=== PATIENT | female | born 1945 | race Two or more races ===

== ENCOUNTER → 2024-05-10 07:25 | Outpatient (REF) | payer OTHER, SELFPAY | LOC: DHCBC/DCA 07:25 | PROVIDERS: ATTENDING PHYSICIAN Internal Medicine Cardiovascular Disease; FAMILY PHYSICIAN Family Medicine | DX: I50.30 Unspecified diastolic (congestive) heart failure (principal) | CPT/HCPCS: 78452; 93017; A9500; J2785 ==

== ENCOUNTER → 2024-05-22 13:34 | Outpatient (REF) | payer OTHER, SELFPAY | LOC: HWRCS 13:34 | PROVIDERS: ATTENDING PHYSICIAN Internal Medicine Cardiovascular Disease; FAMILY PHYSICIAN Family Medicine | DX: I50.30 Unspecified diastolic (congestive) heart failure (principal) | CPT/HCPCS: 93306 ==

== ENCOUNTER → 2024-07-17 09:51 | Outpatient (REF) | payer OTHER, SELFPAY | LOC: DHSLP 09:51 | PROVIDERS: ATTENDING PHYSICIAN Internal Medicine; FAMILY PHYSICIAN Family Medicine | DX: G47.19 Other hypersomnia (principal); R06.83 Snoring | CPT/HCPCS: 95800 ==

== ENCOUNTER 2024-07-22 05:57 | Day surgery (SDC) | payer OTHER, SELFPAY ==
[2024-07-03 13:39] VITALS: BMI 31.6
[2024-07-03 14:09] LABS: ALT (SGPT) 23 U/L (0-35); AST (SGOT) 26 U/L (14-36); Albumin 4.2 g/dl (3.5-5.0); Alkaline Phosphatase 87 U/L (38-126); Blood Urea Nitrogen 11 mg/dl (7-17); Calcium 10.1 mg/dl (8.4-10.2); Carbon Dioxide 27 mmol/L (22-30); Chloride 97 mmol/L (98-107); Estimated Creatinine Clearance 74 ml/min; Glucose 135 mg/dl (70-99); Potassium 4.4 mmol/L (3.5-5.1); Sodium 135 mmol/L (135-145); Total Bilirubin 0.7 mg/dl (0.2-1.3); Total Protein 6.7 g/dl (6.3-8.2); eGFR > 60.00
[2024-07-03 14:21] LABS: % Basophils 0.5 % (0-2); % Eosinophils 2.3 % (0-6); % Immature Granulocytes 0.2 % (0-0.5); % Lymphocytes 24.9 % (20.5-51.1); % Monocytes 8.2 % (1.7-9.3); % Neutrophils 63.9 % (42.2-75.2); Absolute Basophils 0.1 10^3/uL (0-0.2); Absolute Eosinophils 0.2 10^3/uL (0-0.7); Absolute Lymphocytes 2.3 10^3/uL (1.2-3.4); Absolute Monocytes 0.8 10^3/uL (0.1-0.6); Absolute Neutrophils 5.8 10^3/uL (1.4-6.5); Hemoglobin 11.9 g/dL (12.0-16.0); Mean Corp Hgb Conc. 33.1 g/dL (33.0-37.0); Mean Corpuscular Hgb 28.2 pg (27.0-31.0); Mean Corpuscular Volume 85.3 fL (81.0-99.0); Mean Platelet Volume 9.2 fL (7.4-10.4); Nucleated Red Blood Cells % 0 %; Platelet Count 309 10^3/uL (130-400); Red Blood Cell Count 4.22 10^6/uL (4.20-5.40); Red Cell Dist. Width 13.8 % (11.5-14.5); White Blood Cell Count 9.1 10^3/uL (4.8-10.8)
[2024-07-22] VITALS (9 sets, daily range): BP systolic 125–157; BP diastolic 55–90; BMI 30.2
[2024-07-22 06:58] LABS: Glucose - Point of Care 130 mg/dl (70-99)
[2024-07-22 07:09] LABS: INR 1.71; PT 19.9 Sec (11.4-14.6)
[2024-07-22 08:57] LABS: ACT-LR - POC 395 Seconds (116-155)
[2024-07-22 09:04] LABS: Glucose - Point of Care 140 mg/dl (70-99)
[2024-07-22 09:50] LABS: ACT-LR - POC 358 Seconds (116-155)
--- NOTE | 2024-07-22 10:36 | ITS.CL.ABL ---
Faculty Research Physician - Ablation
Ablation
Procedure Report:
AFIB ablation:
Ms. Kay is a very pleasant 78 yr old woman with symptomatic persistent AF and atrial flutter and had recurrent atrial fibrillation failed Diltiazem and anticoagulated with Warfarin is recommended AF / Flutter ablation.
Date of the Procedure:
07/22/2024
Indications:
Persistent atrial fibrillation / Atrial Flutter
Pre-Operative Diagnosis:
Persistent atrial fibrillation / Atrial Flutter
Post-Operative Diagnosis:
Persistent atrial fibrillation / Atrial Flutter
Procedure Performed:
Atrial fibrillation ablation with Pulsed-Field approach for pulmonary vein isolation
Posterior wall isolation
Roof dependent flutter ablation
Performing Physician:
Austin Undewrood MD
Assistants:
EP staff
Anesthesia:
See anesthesia records
Detailed Description of the Procedure:
Written informed consent was obtained from the patient after a full explanation of the risks and benefits of the procedure including the risks of sedation and anesthesia.
The patient was brought to the electrophysiology laboratory in stable condition in fasting state. Continuous electrocardiographic and hemodynamic monitoring was initiated.
The initial rhythm was atrial fibrillation.
Device Interrogation:
Patient has Medtronic dual chamber PPM in place. The device was interrogated at the start of the case. The device and the lead was working normally.
The procedure site was meticulously prepared with surgical scrub and allowed to dry with no pooling. Sterile draping was applied to cover the procedure site. The image intensifier was draped with sterile bag and positioned over the patient. After
infusion of local anesthetic, vascular access was obtained under ultrasound guidance and sheaths were placed over guide wire as detailed below.
Sheath and Catheter Placement:
The following catheters / sheaths were placed
Sheaths:
��������� 17Fr steerable sheath (Faradrive�, [employer]) in right femoral upgraded from SL1 sheath
��������� 9Fr in right femoral vein
Catheters:
��������� Carto Pentaray mapping catheter � at locations of RA, LA
��������� Farawave� PFA catheter
��������� ICE catheter -AcuNav - at locations of RA, SVC, and RV.
Intracardiac ECHO:
An 8-Egyptian AcuNav intracardiac ECHO (ICE) probe was advanced through the 9-Egyptian sheath in the right femoral vein into the right atrium under fluoroscopic and ICE ultrasound image guidance and a baseline ECHO study was performed. The left atrial
size was dilated. There was mild tricuspid regurgitation. The aortic valve was grossly normal. There was normal left ventricular systolic functions. There is trace pericardial effusion. All the four veins were identified and has flow identified.
During the procedure, ICE was used for monitoring of complications, guidance of trans-septal puncture, monitor the catheter position and tracking ablation lesions. No change in the pericardial space noted throughout the procedure.
Trans-septal Puncture:
Heparin was initiated and infused to maintain appropriate ACT. A pigtail guidewire was advanced through the 10-Egyptian sheath in the right femoral vein into the superior vena cava under fluoroscopic and ICE guidance. The 9-Egyptian sheath was exchanged
for a Faradrive sheath which was advanced into the superior vena cava. A transseptal RF pigtail via Faradrive connect system was utilized to perform the trans-septal puncture. The apparatus was withdrawn until it was in contact with the fossa
ovalis. The position was adjusted based on fluoroscopy and ultrasound images from ICE. Under fluoroscopic, hemodynamic and ICE ultrasound guidance, left atrium was cannulated by applying RF energy. Once atrial septum was cannulated, the pigtail wire
was advanced through the needle into the left atrium. The guide wire was advanced into the left superior pulmonary vein. Both the sheath and the dilator was advanced into the left atrium. The dilator with pigtail was withdrawn. Blood was aspirated
from the Faradrive sheath and arterial blood confirmed. The sheath was flushed. Saline injection noted into the left atrium on ICE. The mapping catheter was advanced in the sheath into the left pulmonary vein. Left atrial pressure was measured.
3D Electroanatomic Mapping:
Using the HD Grid catheter advanced through sheath into the left atrium, an electroanatomic map (EAM) of the left atrium was created using [employer] mapping system. The map was used for localization of catheter position and tacking of ablation
lesions.
The EAM of the left atrium showed 4 pulmonary veins with all 4 veins electrically reconnected to the body the LA. It showed scattered extensive areas of scar on the posterior and anterior wall of the LA. The LA was dilated in size.
Following the EAM, preparation were made for ablation.
Ablation:
Ablation # 1: Pulmonary vein Isolation:
Glycopyrrolate 0.2 mg was given prior to the placement of ablation. Using [employer] pulsed wave ablation system, pulmonary vein isolation was achieved. First the ablation catheter was placed in the left sided vein with LSPV and ostial ablation lesions
were performed in a counter clock streeter approach all around the PV ostium. Then the catheter was placed on the antral location and pulsed field ablation lesions were placed on the antrum of the vein.
In the similar fashion, the LIPV were isolated.
Then the catheter was moved to right sided veins. The ostial and antral ablations were placed as noted above.
Patient remained in atrial fibrillation.
Ablation # 2: Posterior wall isolation:
Using the pulsed field ablation catheter, the catheter was placed on the posterior wall and moved around the posterior wall to have adequate contact and ablations were placed isolating the posterior wall.
Cardioversion:
Once the PV isolation was achieved, decision was made to proceed with cardioversion. A 200 J biphasic shock was applied on the juan luis posterior Zoll patches and sinus rhythm was achieved. Patient went back into atrial flutter /fibrillation. No
significant pause noted.
Post ablation Electroanatomic mapping:
Once ablation was completed, the EAM of the LA was done again in atrial paced rhythm with excellent demarcation of LA myocardium and isolated antral tissue.
Patient had atrial paced rhythm with normal AV conduction and intermittent demand RV pacing.
EPS and Confirmation of the PVI and bidirectional block:
Following achievement of entrance block at the pulmonary veins, pacing from the mapping catheter in each of the four veins at 10 milliamps for 2 milliseconds showed entrance and exit block. All PVI were rechecked at the end of the case and remained
isolated with dissociated and local capture with pacing. Entrance and exit block were demonstrated in all veins.
Procedure End
ICE study was done again that showed no epicardial accumulation. No complications noted.
Following the completion of the EP study, catheters were removed. Protamine 40 mg was given at the end of the procedure and ACT was checked repeatedly. The sheaths were removed and hemostasis achieved with Vascade and manual compression after
acceptable ACT is achieved.
Left atrial Pressure:
Pre-Procedure: Mean LA pressure was 13mmHg
Post-Procedure: Mean LA pressure was 11mmHg
Post-Procedure: Mean LR pressure was 9mmHg
Estimated Blood loss:
<10 cc
Specimens Removed:
None.
Implants / Devices:
None
Urine output:
None
Packs / Drains/ Tubes:
None
Instrument / Sponge Count Correct:
Yes
Complications of the Procedure:
None
Condition of Patient at Time of Transfer:
Hemodynamically stable with no neurological or vascular compromise.
Summary:
Successful atrial fibrillation ablation with Pulsed Field approach for pulmonary vein isolation, roof dependent flutter ablation, posterior wall isolation
Figures from the Procedure:
Figure 1: The electroanatomic mapping (EAM) of the left atrium with bipolar voltage (purple indicates normal electrical activity with sandoval as no myocardial muscle electric activity indicating a line of block or scar.
[2024-07-22 10:54] LABS: Glucose - Point of Care 148 mg/dl (70-99)
[2024-07-22 11:33] LABS: ACT-LR - POC > 397 Seconds (116-155)
[2024-07-22] MEDS: ANESTHETIC LOZENGE 1 LOZENGE PO (11:37)
--- NOTE | 2024-07-22 12:57 | W.PN.UPDATE ---
Update Note
Progress Note Update
Pt seen post PFA. Right groin site with vascade closure, no ht/bleeding, oob ambulating, urinating without difficulty. Post EKG APaced w/underlying sinus rhythm 60s, no acute changes or arrhythmia. Resume warfarin tonight at usual dose/time.
Continue other meds as before. Followup with [facility] at [facility] office as scheduled. Home today if groin site/tele remain stable.
== END 2024-07-22 13:35 | disposition home or self-care (01) ==
LOC: CATH 05:57
PROVIDERS: ATTENDING PHYSICIAN Internal Medicine Cardiovascular Disease; FAMILY PHYSICIAN Family Medicine; OTHER PHYSICIAN Internal Medicine Cardiovascular Disease
DX: I48.19 Other persistent atrial fibrillation (principal); I48.92 Unspecified atrial flutter; I49.5 Sick sinus syndrome; Z95.0 Presence of cardiac pacemaker; I35.0 Nonrheumatic aortic (valve) stenosis; I10 Essential (primary) hypertension; E78.5 Hyperlipidemia, unspecified; E11.51 Type 2 diabetes mellitus with diabetic peripheral angiopathy without gangrene; K21.9 Gastro-esophageal reflux disease without esophagitis; Z79.84 Long term (current) use of oral hypoglycemic drugs; Z79.01 Long term (current) use of anticoagulants; Z79.85 Long-term (current) use of injectable non-insulin antidiabetic drugs
CPT/HCPCS: C1732; C1769; C1892; C1759; 36415; 80053; 82962; 85025; 85347; 85610; 86850; 86900; 86901; 93005; 93655; 93656; 93657; C1733; C1760; C1766

== ENCOUNTER → 2024-08-20 15:14 | Outpatient (REF) | payer MEDICARE, SELFPAY | LOC: RAD 15:14 | PROVIDERS: ATTENDING PHYSICIAN Internal Medicine Cardiovascular Disease; FAMILY PHYSICIAN Family Medicine | DX: I48.0 Paroxysmal atrial fibrillation (principal); I35.0 Nonrheumatic aortic (valve) stenosis; G45.3 Amaurosis fugax | CPT/HCPCS: 70496; 70498; Q9967 ==

== ENCOUNTER 2024-08-28 06:51 | Day surgery (SDC) | payer MEDICARE, SELFPAY ==
[2024-08-28 07:46] LABS: Glucose - Point of Care 131 mg/dl (70-99)
[2024-08-28 08:21] LABS: INR 2.06; PT 23.7 Sec (11.4-14.6)
== END 2024-08-28 09:40 | disposition home or self-care (01) ==
LOC: CATH 06:51
PROVIDERS: ATTENDING PHYSICIAN Student in an Organized Health Care Education/Training Program; FAMILY PHYSICIAN Family Medicine; OTHER PHYSICIAN Internal Medicine Cardiovascular Disease
DX: I08.3 Combined rheumatic disorders of mitral, aortic and tricuspid valves (principal); Q21.10 Atrial septal defect, unspecified; I70.0 Atherosclerosis of aorta; Z98.890 Other specified postprocedural states; I48.19 Other persistent atrial fibrillation; I49.5 Sick sinus syndrome; I10 Essential (primary) hypertension; E78.5 Hyperlipidemia, unspecified; E11.9 Type 2 diabetes mellitus without complications
CPT/HCPCS: 93312; 93320; 93325; 82962; 85610

== ENCOUNTER 2024-12-16 23:54 | Inpatient (IN) | payer MEDICARE, SELFPAY ==
[2024-12-16] VITALS (8 sets, daily range): BP systolic 164–232; BP diastolic 64–95; BMI 33.6
[2024-12-16] MEDS: OMNIPAQUE 50 ML PO (18:20)
[2024-12-16] MEDS: ZOFRAN 4 MG IV (18:20)
[2024-12-16 18:22] LABS: Urine Albumin 3+ (Neg - Trace); Urine Bilirubin Negative (Negative); Urine Character Clear (Clear); Urine Color Yellow; Urine Glucose 2+ (Negative); Urine Ketone 1+ (Negative); Urine Leukocyte 1+ (Negative); Urine Nitrite Negative (Negative); Urine Occult Blood 4+ (Negative); Urine Urobilinogen Negative (Neg - 1+)
[2024-12-16 18:28] LABS: % Basophils 0.4 % (0-2); % Eosinophils 0.1 % (0-6); % Immature Granulocytes 0.6 % (0-0.5); % Lymphocytes 8.3 % (20.5-51.1); % Monocytes 6.3 % (1.7-9.3); % Neutrophils 84.3 % (42.2-75.2); Absolute Basophils 0.1 10^3/uL (0-0.2); Absolute Immature Granulocytes 0.1 10^3/uL (0-0.05); Absolute Lymphocytes 1.2 10^3/uL (1.2-3.4); Absolute Monocytes 0.9 10^3/uL (0.1-0.6); Absolute Neutrophils 12.1 10^3/uL (1.4-6.5); Hematocrit 32.9 % (37.0-47.0); Hemoglobin 11.2 g/dL (12.0-16.0); Mean Corpuscular Hgb 28.6 pg (27.0-31.0); Mean Corpuscular Volume 83.9 fL (81.0-99.0); Mean Platelet Volume 9.2 fL (7.4-10.4); Nucleated Red Blood Cells % 0 %; Platelet Count 367 10^3/uL (130-400); Red Blood Cell Count 3.92 10^6/uL (4.20-5.40); Red Cell Dist. Width 12.5 % (11.5-14.5); White Blood Cell Count 14.3 10^3/uL (4.8-10.8)
[2024-12-16 18:33] LABS: INR 1.81; PT 21.2 Sec (11.4-14.6)
[2024-12-16 18:45] LABS: COVID-19 Antigen Negative (Negative)
[2024-12-16 18:48] LABS: ALT (SGPT) 21 U/L (0-35); AST (SGOT) 24 U/L (14-36); Albumin 3.9 g/dl (3.5-5.0); Alkaline Phosphatase 96 U/L (38-126); Blood Urea Nitrogen 14 mg/dl (7-17); Calcium 9.4 mg/dl (8.4-10.2); Carbon Dioxide 25 mmol/L (22-30); Estimated Creatinine Clearance 40 ml/min; Glucose 194 mg/dl (70-99); Lipase 95 U/L (23-300); Total Bilirubin 1.3 mg/dl (0.2-1.3); Total Protein 6.6 g/dl (6.3-8.2); eGFR 56.95
[2024-12-16 19:02] LABS: Urine Bacteria Few (Negative); Urine Red Blood Cell 26-30 /HPF (0-2)
[2024-12-16 19:04] LABS: Chloride 95 mmol/L (98-107); Potassium 3.8 mmol/L (3.5-5.1); Sodium 131 mmol/L (135-145)
--- NOTE | 2024-12-16 23:01 | ED.GENMED ---
History of Present Illness
General
Chief Complaint: Abdominal Symptoms
Source: patient, records and family
Exam Limitations: none
Nursing documentation reviewed up to this point in time: agreed with
History of Present Illness
History of Present Illness:
79-year-old female with history of hypertension, hyperlipidemia, pacemaker, atrial fibrillation on Coumadin, GERD who presents to the emergency room with her son-in-law for evaluation of abdominal pain and hematuria. Patient recently arrived here
from [place] on Monday morning; apparently the 2 weeks prior to her coming over she had URI symptoms, subsequently developed some dental pain left upper molar treated with Augmentin. Apparently she was also prescribed pain medication for her dental
infection that included NSAID. 2 days prior to her flight she started to have some hematuria and blood in her pad; she discussed with her son who had her hold Coumadin prior to coming over. Over the past 24 hours she has been complaining of pain
in her abdomen and today has been having some dry heaving as well and so she was brought to the ER to be evaluated. Patient says that the pain initially started in the right flank and now has radiated across her lower abdomen. She is having some
active dry heaving in the emergency department upon my entering the room.
Past History
Past History
ED Past Medical History: Arrthythmia (Paroxysmal atrial fibrillation), HTN, Hypercholesterolemia and NIDDM
Social History
Tobacco: Non-smoker
Alcohol: None
Drug: None
Living: alone
Review of Systems
Review of Systems
All Other Systems: ROS reviewed and negative except as documented in HPI and ROS
Constitutional: Denies fever
Respiratory: Denies trouble breathing
Cardiac: Denies chest pain
ABD/GI: Reports abdominal pain, nausea and vomiting; Denies diarrhea, bloody stools or black stools
: Reports flank pain and bleeding
Phy Exam
Physical Exam
Physical Exam:
General: Awake, alert, oriented x3; no acute distress
Head: Normocephalic, atraumatic
Eyes: Conjunctiva normal, sclera anicteric
Throat: Airway intact, handling secretions
Neck: Trachea midline
Lungs: Clear to auscultation bilaterally, no wheezing, rales, rhonchi
Heart: Regular rate and rhythm, systolic murmur
Abd: Soft, non distended, mildly tender across lower abdomen with no palpable masses
Rectal: Brown stool Hemoccult negative
Extremities: Warm and well-perfused
Scores
Heart Failure Risk
Heart Failure Risk Score: Not Applicable
Heart Score for Chest Pain Patients
STEMI patient?: Not applicable
Withdrawal Assessment of Alcohol
Withdrawal Assessment Completed?: Not applicable
Course
Orders/Labs/Results
Orders:
Orders
12/16/24 17:49
Bladder Scan- Treatment ONCE
12/16/24 18:03
Iohexol [Omnipaque] See Protocol PO NOW STA
Ondansetron Injectable [Zofran] 4 mg IV NOW STA
12/16/24 18:04
CT Abd/pel (oral only)-DH Only Urgent
Comment:
Reason For Exam: lower abd pain, N/V
12/16/24 18:07
Electrocardiogram (*1) Urgent
Reason for Study: QTc Monitoring
EKG- Treatment ONCE
12/16/24 18:13
COVID-19 Antigen Urgent
Source: Nasal Swab
Complete Blood Count/With Diff Urgent
Comprehensive Metabolic Panel Urgent
Lipase Urgent
Prothrombin Time Urgent
Influenza A+B Rapid Molecular Urgent
DIAMOND Source: Nasal Swab
Specimen Description:
12/16/24 18:15
Urinalysis Reflex To Culture Urgent
Date Specimen was Collected: 12/16/24
Time Specimen was Collected: 18:14
Urine Microscopic Reflex Cult Urgent
Urine Culture Urgent
DIAMOND Source: U
Specimen Description:
Date Specimen was Collected: 12/16/24
Time Specimen was Collected: 18:14
12/16/24 22:24
0.9% Sodium Chloride 1000 ml [Nss] 1,000 ml IV BOLUS
12/16/24 23:00
UROLOGY CONSULT Urgent
Consulting Provider: Tk [place]
Was physician already notified: Yes
12/16/24 23:09
HydrALAZINE [Apresoline] 10 mg IV NOW STA
Piperacillin/Tazo 3.375 Gram [Zosyn] 3.375 gram in 50 ml IV NOW
Abnormal Lab Results
12/16/24 12/16/24
18:13 18:15
WBC 14.3 H 10^3/uL
(4.8-10.8)
RBC 3.92 L 10^6/uL
(4.20-5.40)
Hgb 11.2 L g/dL
(12.0-16.0)
Hct 32.9 L %
(37.0-47.0)
Abs Immat Gran (auto) 0.1 H 10^3/uL
(0-0.05)
Absolute Neuts (auto) 12.1 H 10^3/uL
(1.4-6.5)
Absolute Monos (auto) 0.9 H 10^3/uL
(0.1-0.6)
Immature Gran % 0.6 H %
(0-0.5)
Neutrophils % 84.3 H %
(42.2-75.2)
Lymphocytes % 8.3 L %
(20.5-51.1)
PT 21.2 H Sec
(11.4-14.6)
Sodium 131 L mmol/L
(135-145)
Chloride 95 L mmol/L
(98-107)
Glucose 194 H mg/dl
(70-99)
Urine Ketones 1+ A
(Negative)
Ur Occult Blood Reflex 4+ A
(Negative)
Leukocyte Esterase Rfl 1+ A
(Negative)
Urine RBC 26-30 A /HPF
(0-2)
Urine WBC (Reflex) 11-15 A /HPF
(0-5)
Urine Bacteria (Reflex) Few A
(Negative)
Urine Glucose 2+ A
(Negative)
Urine Albumin (Reflex) 3+ A
(Neg - Trace)
12/16/24 18:13
12/16/24 18:13
Vital Signs
Initial and Last Documented VS:
Initial Vital Signs
Temp Pulse Resp BP Pulse Ox
36.7 C 73 16 199/90 98
12/16/24 17:35 12/16/24 17:35 12/16/24 17:35 12/16/24 17:35 12/16/24 17:35
Last Documented Vital Signs
Temp Pulse Resp BP Pulse Ox
36.7 C 83 21 229/80 97
12/16/24 17:35 12/16/24 22:00 12/16/24 22:00 12/16/24 22:00 12/16/24 22:00
MDM/Problems Addressed
Differential Diagnosis Includes:
UTI, nephrolithiasis, gastritis/enteritis/PUD, diverticulitis
MDM/Problems Addressed:
79-year-old female presents for evaluation of abdominal pain associate with hematuria in the setting of recent NSAID use and antibiotic treatment for dental infection and known use of Coumadin for A-fib. Hypertensive otherwise normal vitals.
Physical exam as above. Hemoccult negative here blood seems to be definitively in the urine. Labs sent off including CBC which shows stable anemia with a hemoglobin of 11.2. She does have a leukocytosis with a hemoglobin 14.3. Her CMP shows NELL
with a creatinine of 1.0 today from a baseline of 0.5 previously. Her INR is 1.8--held Coumadin x 48 hours. Urinalysis does show bacteria and pyuria although it does appear to be contaminated; given her leukocytosis and lower abdominal pain would
cover for UTI. CT abdomen pelvis showed mild hydroureteronephrosis on the right which is where her pain started; she appears to have some blood products in the right renal collecting system. Discussed with urology will need evaluation for
hematuria which can likely been outpatient; however given her continued pain, NELL and leukocytosis we will treat with antibiotics and admit for fluids and monitor labs. Urology to consult the morning. Case discussed with hospitalist.
Chronic conditions affecting care:
Atrial fibrillation on Coumadin complicates hematuria
Acute Exacerbation and/or Progression of Chronic Illness:
Acutely hypertensive�she took her home blood pressure medication here and remained hypertensive and so she was given IV hydralazine x 1 dose
Acute Exacerbation and/or Progression of Chronic Illness: HTN
*Radiology
Radiology exam reviewed: radiology read reviewed
*Pulse Oximetry
Patient hypoxic: no
*EKG
Interpreted by ED Provider?: Yes
Heart Rate: 76
Rate: normal
Rhythm: sinus
[place]: normal axis
Interval: normal interval
QRS Pattern: normal QRS
Ischemia: no ischemia
*Critical Care Note
Total Time (30-74mins, 75-104mins- exclusive of procedures): Not Applicable
Data Reviewed
Review of Other/Old Records Reveals: Labs
Source: patient and family
Patient Management
Discussion with other providers: Hospitalist (Discussed with hospitalist) and Electric [employer] Tester (Discussed with urologist)
Escalation/DeEscalation of care consider admission/obs:
Admission indicated
ED Attending Note
-
Portions of this chart may have been created with voice recognition software.� Occasional wrong word or��sound alike� substitutions may have occurred due to the inherent limitations of voice recognition software.
Discharge Plan
Departure
Patient Disposition: Admit
Date of Disposition: 12/16/24
Time of Disposition: 23:02
Admit to doctor: Davion
Presentation/result/management discussed w/ accepting MD/DO: Hospitalist
Discharge Problem:
UTI (urinary tract infection), Hematuria, NELL (acute kidney injury), Hydronephrosis, Hypertension
Prescriptions:
No Action
esomeprazole magnesium [Nexium] 20 MG capsule,delayed release(DR/EC)
20 mg PO HS
losartan 100 mg Tablet
100 mg PO DAILY
diltiazem HCl 120 mg Capsule,Extended Release 24hr
120 mg PO DAILY
diphenhydramine-acetaminophen [Tylenol PM Extra Strength] 25-500 mg Tablet
1 tab PO HS
atorvastatin 20 MG tablet
20 mg PO HS
metoprolol succinate 25 MG tablet extended release 24 hr
25 mg PO HS
biotin 10,000 mcg Capsule
10,000 mcg PO Q48H
fluticasone propionate [Flonase] 50 mcg/actuation [place],Suspension
1 spray INTRANASAL DAILYPRN PRN (Reason: congestion)
metformin 500 mg Tablet Extended Release 24hr
500 mg PO BID
Referrals:
Saravanan Carl Jr., DO [Family Provider] -
Interventions
Interventions:
*Risk Screen - Suicide Last Done: 12/16/24 17:35
*General Assessment Last Done: 12/16/24 19:15
*Neglect/Abuse Screening Last Done: 12/16/24 17:35
ED- Fall Risk Assessment Last Done: 12/16/24 18:42
*ED COVID-19 Vaccine History Last Done: 12/16/24 19:15
XX-Biunmv-Rmxsuttqhb Assessment Last Done: 12/16/24 18:42
Discharge Date and Time
Print Language: INDONESIAN
[2024-12-16] MEDS: NSS 1000 IV (23:06)
--- NOTE | 2024-12-16 23:07 | HPS.HSE ---
Addendum entered and electronically signed by Tor Ricardo DO 12/17/24 00:02:
Patient seen and examined independently. Agree with findings and plan as set forth by ANOOP Ballesteros.
Patient is an 79y F with PMH significant for A-Fib and hypertension who presents to ED complaining of right-sided abdominal pain and blood in the urine. Patient first noted blood in the urine on Monday. She denies any dysuria, frequency or
hematuria. no fevers or chills. Patient was recently treated fro dental infection with abx as well as NSAIDs TID - this was about two weeks ago. Patient is on Coumadin for A-Fib - but she has held this since first noting the blood on Monday.
Over the past 24 hours she has developed R sided abdominal pain as well as N/V and poor tolerance of PO intake.
In the ED, patient is noted to be persistently hypertensive with systolic pressures > 200.
Ass:
Hypertensive Emergency
Hematuria
Paroxysmal Atrial Fibrillation
ASCVD
Hyponatremia
DM-II
GERD
Plan:
Admit for further evaluation and treatment.
With hematuria and persistently elevated BP - will begin nicardipine for BP control and titrate as needed.
Check LDH.
Continue abx for treatment of possible urine infection - though no complaints of dysuria, no fever, etc.
Urology evaluation for additional recommendations / evaluation of hematuria.
BP elevation, hematuria, etc may be related to recent NSAIDs +/- abx taken for dental infection.
Follow for any persistent hematuria, changes in renal function, etc.
Monitor for any fever or other new / focal complaints.
Hold Coumadin for now. INR today = 1.81.
Continue other outpatient medications.
Original Note:
Family Physician
-
Family Physician: Saravanan Carl Jr.
Chief Complaint
-
abdominal pain
History of Present Illness
79-year-old female with history of hypertension, hyperlipidemia, pacemaker, atrial fibrillation on Coumadin, GERD who presents to the emergency room with her son-in-law for evaluation of abdominal pain and hematuria. the hematuria started last
Monday. she just came back from [place]. two weeks ago, while she was in noted she was treated with abx for dental infection. she was taking NSAIDS three times a day. she noticed blood in the pad while she was in [place]. she discussed with her son
who held her hold Coumadin prior to coming over. Over the past 24 hours she has been complaining of pain in her abdomen and today has been having some dry heaving as well as nausea and vomiting. patient not able to tolerated any oral intake. denied
fever, chills, chest pain, sob. denied VALENTINE,dizzy or syncope.
UA positive for UTI. CT with the concern for Mild right hydronephrosis and proximal to mid right hydroureter. Increased attenuation in the right renal collecting system most suspicious for mild blood products.patient was also noted hypertensive in
ER. patient received in hydralazine, normal saline, Zosyn and Zofran in ER. admitting for further management.
Medical History
Past Medical History
Past Medical History: Reports Other
Additional Past Medical History:
HLDPAD
atrial fib
sick sinus syndrome
gerd
mitral stenosis
aortic stenosis
type 2 DM
carotid stenosis
htn
pulmonary HTN
Past Surgical History: Reports Other
Additional Past Surgical History:
pacemaker
bilateral bunion surgery
carpel tunnel release
cataracts
sinus surgery
tonsillectomy
Social History
Tobacco: Non-smoker
Alcohol: Occasional
Drug: None
Living: With Family
Family History
Family History: Not pertinent
Allergies / Home Medications
Allergies reflects when Allergies were last updated in [facility].
Home Medications with original date entered in [facility]
Allergy/Medication List:
Allergies
Allergy/AdvReac Type Severity Reaction Status Date / Time
cephalexin monohydrate Allergy Hives Verified 12/16/24 17:40
[From Keflex]
codeine Allergy Hives Verified 12/16/24 17:40
Iodinated Contrast Media Allergy Hives Verified 12/16/24 17:40
latex Allergy Itching Verified 12/16/24 17:40
Home Medications
esomeprazole magnesium 20 mg capsule,delayed release (Nexium) 20 mg PO HS 03/18/21
losartan 100 mg tablet 100 mg PO DAILY 08/16/23
atorvastatin 20 mg tablet 20 mg PO HS 06/28/24
diltiazem HCl 120 mg capsule,extended release 24 hr 120 mg PO DAILY 06/28/24
diphenhydramine 25 mg-acetaminophen 500 mg tablet (Tylenol PM Extra Strength) 1 tab PO HS 06/28/24
metoprolol succinate 25 mg tablet,extended release 24 hr 25 mg PO HS 06/28/24
biotin 10,000 mcg capsule 10,000 mcg PO Q48H 08/28/24
fluticasone propionate 50 mcg/actuation nasal spray,suspension 1 spray intranasal DAILYPRN PRN congestion 12/16/24
metformin 500 mg tablet,extended release 24hr (osmotic) 500 mg PO BID 12/16/24
Review of Systems
-
Constitutional: Reports No Symptoms
EENT: Reports No Symptoms
Respiratory: Reports No Symptoms
Cardiac: Reports No Symptoms
Abdomen/GI: Reports Abdominal Pain, Nausea and Vomiting
: Reports Bleeding
Musculoskeletal: Reports No Symptoms
Skin: Reports No Symptoms
Neurological: Reports No Symptoms
Endocrine: Reports No Symptoms
Hematologic/Lymphatic: Reports No Symptoms
Psych: Reports No Symptoms
Physical Exam
Vital Signs
Vital Signs
Temp Pulse Resp BP Pulse Ox
98.1 F 83 21 229/80 97
12/16/24 17:35 12/16/24 22:00 12/16/24 22:00 12/16/24 22:00 12/16/24 22:00
Physical Exam
General: Well Developed, Well Nourished and No Apparent Distress
HEENT: NormoCephalic, Moist mucous membranes and Atraumatic
Respiratory: Clear
Cardiac: S1/S2 and Regular Rhythm; No Murmur or Rub
GI: Soft, Non Tender, Non Distended and Normal Bowel Sounds; No Organomegaly
Rectal: Deferred by Provider
Musculoskeletal: No Clubbing, No Cyanosis and No Edema
Skin: No Rash
Neuro: AO x 3 and Nonfocal/grossly intact
Psych: Calm
Laboratory Results
-
12/16/24 18:13
12/16/24 18:13
Laboratory Results
PT 21.2 Sec (11.4-14.6) H 12/16/24 18:13
INR 1.81 12/16/24 18:13
Total Bilirubin 1.3 mg/dl (0.2-1.3) 12/16/24 18:13
AST 24 U/L (14-36) 12/16/24 18:13
ALT 21 U/L (0-35) 12/16/24 18:13
Alkaline Phosphatase 96 U/L (38-126) 12/16/24 18:13
Lipase 95 U/L (23-300) 12/16/24 18:13
Data Reviewed
-
CT Scan: Report Reviewed by me
Lab Data: Labs Reviewed by me
Impression/Plan
-
#abdominal pain/hematuria likely secondary to UTI/mild righ hydro/suspicious for blood products
-wbc 14.3
-CT abdomen pelvis with Mild right hydronephrosis and proximal to mid right hydroureter. Increased attenuation in the right renal collecting system most suspicious for mild blood products.
-iv Zosyn continued
-Tylenol prn for fever and pain
-urology consulted
#anemia of chronic disease
-hgb stable at 11.2
-no active bleeding
-ctm
#chronic hyponatremia
-corrected na 131
-ctm
#HTN emergency
-BP elevated in ER
-iv hydralazine in ER
-continue to monitor
-Cardene drip
-losartan held
#paroxysmal atrial fibrillation.
#Sick sinus syndrome status post Medtronic dual-chamber pacemaker
-pacemaker in place
-Cardizem,metoprolol continued
-held coumdin
#Aortic stenosis
# Hyperlipidemia.
-statin continued
#Non insulin-dependent diabetes
-hold metformin
-sliding scale
-CHO diet
#Gastroesophageal reflux disease.
-PPI continued
#DVT prophylaxis
-scd
#CODE status
-full code
[2024-12-16] MEDS: APRESOLINE 10 MG IV (23:27)
[2024-12-16] MEDS: ZOSYN 50 IV (23:27)
[2024-12-16] MEDS: CARDENE 200 IV (23:44)
--- NOTE | 2024-12-16 23:47 | EDRN ---
Report received, introduced myself to patient and daughter, patient's blood pressure has been trending up and not coming down even though patient took her home meds, spoke with Dr. Hernandez who ordered hydralazine for the patient, repeat blood pressure
still elevated, Patient ambulated into the restroom to urinate and had blood with small clots in her urine, Dr. Ricardo at bedside seeing patient at this time as well, informed about the bleeding and the blood pressure, Dr. Ricardo wants to start patient
on Cardene.
[2024-12-17] VITALS (44 sets, daily range): BP systolic 107–185; BP diastolic 48–100; BMI 33.8
--- NOTE | 2024-12-17 00:20 | EDRN ---
Patients BP started to trend down, was 125/62 and then 119/69, stopped the Cardene at this time, fluids still infusing, patient also complaining of chest pain that is burning/pressure and going through to her back in between her shoulder blades and
very nauseated, EKG was completed and blood pressure in both arms completed, Dr. Ricardo was informed and at bedside re-assessing patient at this time.
[2024-12-17] MEDS: NITROSTAT (SUBLINGUAL) 0.4 MG SL (00:43)
[2024-12-17] MEDS: ZOFRAN 4 MG IV (00:55)
--- NOTE | 2024-12-17 00:56 | EDRN ---
Patient started to throw up at this time, let Dr. Ricardo know and zofran given at this time.
[2024-12-17 01:11] LABS: Troponin I < 0.012 ng/ml
[2024-12-17] MEDS: SOLU-CORTEF 200 MG IV (01:11)
[2024-12-17] MEDS: BENADRYL 50 MG IV (01:11)
[2024-12-17 01:12] LABS: LDH 382 U/L (120-246)
[2024-12-17 03:23] LABS: Hematocrit 29.7 % (37.0-47.0); Hemoglobin 10.4 g/dL (12.0-16.0); Mean Corpuscular Hgb 28.7 pg (27.0-31.0); Mean Platelet Volume 8.9 fL (7.4-10.4); Platelet Count 333 10^3/uL (130-400); Red Blood Cell Count 3.62 10^6/uL (4.20-5.40); Red Cell Dist. Width 12.4 % (11.5-14.5); White Blood Cell Count 15.9 10^3/uL (4.8-10.8)
[2024-12-17 03:35] LABS: INR 1.63; PT 19.5 Sec (11.4-14.6)
[2024-12-17 03:45] LABS: Blood Urea Nitrogen 12 mg/dl (7-17); Calcium 8.5 mg/dl (8.4-10.2); Carbon Dioxide 22 mmol/L (22-30); Chloride 98 mmol/L (98-107); Estimated Creatinine Clearance 50 ml/min; Glucose 156 mg/dl (70-99); Potassium 3.8 mmol/L (3.5-5.1); Sodium 130 mmol/L (135-145); eGFR > 60.00
[2024-12-17 04:05] LABS: Troponin I 0.202 ng/ml
--- NOTE | 2024-12-17 04:38 | PTCARENOTE ---
Pt admit to ICU ~0150. Pt AAOX4, ambulatory x1 assist. Slight ODONNELL. Cardene gtt not on at handoff. Pt denying any CP, states upper back pain between shoulder blades 4/10 but slowly going away without intervention.
Pt voiding in bedside commode, bloody urine.
[2024-12-17] MEDS: ZOSYN 50 IV ×4 (05:35→23:04)
--- NOTE | 2024-12-17 06:25 | W.PN.UPDATE ---
Update Note
Progress Note Update
Update:
Shortly after admission, patient began to complain of chest pressure, upper back pain and recurrent nausea. BP diminished into the 120s on Cardene which was discontinued.
EKG performed showing new ST changes in the lateral leads. Initial troponin undetectable.
BP increased off of Cardene; however, symptoms did not resolve.
NTG SL x 1 administered with improvement in chest heaviness. Zofran x 1 with improvement in nausea.
Back pain however persisted and was described as severe.
CTA done given persistent pain (pre-medicated due to prior allergy: hives). No evidence of aortic abnormality. No other new / acute findings. R kidney with more evident perinephric stranding / edema consistent with active inflammation or
infection.
Patient admitted to ICU following CT scan. Resting comfortably. CP fully resolved. Back pain improving but not fully resolved.
2nd troponin elevated at 0.202.
Repeat EKG with reversal / improvement in previously appreciated ST changes.
BP stable (140 -180 systolic) on no medications at present.
Cardiology consulted for additional recommendations.
Check Echo today.
Continue abx for R pyelo and follow for improvement in hematuria, etc.
--- NOTE | 2024-12-17 06:28 | PTCARENOTE ---
Pt BP remains controlled without intervention. Pt continuing to void in bedside commode - bloody urine. Updated pt on plan of care, pt states no questions at this time.
--- NOTE | 2024-12-17 08:14 | CON.CAR ---
Consultation
Consultation Request
Date/Time Consultation Requested: 12/17/2024 05:45
Date/Time Consultation Performed: 12/17/2024 07:50
Requesting Provider: Dr. Ricardo
Performing Provider: ANOOP Burroughs for Dr. Morin
Reason for Consultation: Hypertensive emergency
Medical History
-
Chief Complaint: Bloody urine
History of Present Illness:
Mary Kay is an 79 year old female (known to Dr. Edgar, her primary community relations specialist), with HFpEF, paroxysmal atrial fibrillation (on warfarin, ablation 06/2024), hypertension, PAD, aortic stenosis, dyslipidemia, SSS s/p PPM, and NIDDM with
hyperglycemia who presented to the emergency department with a chief complaint of bloody urine. She endorsed associated abdominal pressure. She had recent travel to [place] and 2 days ago. While visiting in [facility], she had a URI. She also developed
a dental infection. She was given Augmentin and medication for pain management. Unknowingly, this contained an NSAID. She is on warfarin. She also endorsed nausea with dry heaving for the past several days. CT highly suspicious for right
hydronephrosis. She had hypertensive urgency. She was started on a Cardene drip. While her systolic blood pressure was under 140 mmHg she developed midsternal anterior chest pressure. She had associated upper back pain. EKG showed ST changes in
the lateral leads. Initial troponin was undetected. She had relief with 1 sublingual nitroglycerin CTA did not show any acute abnormality. Follow-up troponin 0.202. EKG showed improvement in ST changes. At the time of this consultation, she is
having no chest pressure. She is feeling well other than having some fatigue and intermittent nausea. She still has hematuria. Her warfarin is on hold.
Past Medical History
Past Medical History: Arrhythmias (Paroxysmal atrial fibrillation [on warfarin], SSS s/p PPM), HTN, Hypercholesterolemia, NIDDM, Valvular Disease (Aortic stenosis) and Other (R ICA, PAD)
Past Surgical History: Orthopedic and Tonsilectomy
Social History
Tobacco: Non-Smoker
Alcohol: None
Living: With Family
Employment: Retired
Family History
Family History: Reviewed & Not Pertinent
Allergies / Home Medications
Allergy/AdvReac Type Severity Reaction Status Date / Time
cephalexin monohydrate Allergy Hives Verified 12/16/24 17:40
[From Keflex]
codeine Allergy Hives Verified 12/16/24 17:40
Iodinated Contrast Media Allergy Hives Verified 12/16/24 17:40
latex Allergy Itching Verified 12/16/24 17:40
�Medication �Instructions �Recorded �Confirmed �Type
esomeprazole magnesium 20 mg 20 mg PO HS 03/18/21 12/16/24 History
capsule,delayed release (Nexium)
losartan 100 mg tablet 100 mg PO DAILY 08/16/23 12/16/24 History
atorvastatin 20 mg tablet 20 mg PO HS 06/28/24 12/16/24 History
diltiazem HCl 120 mg 120 mg PO DAILY 06/28/24 12/16/24 History
capsule,extended release 24 hr
diphenhydramine 25 1 tab PO HS 06/28/24 12/16/24 History
mg-acetaminophen 500 mg tablet
(Tylenol PM Extra Strength)
metoprolol succinate 25 mg 25 mg PO HS 06/28/24 12/16/24 History
tablet,extended release 24 hr
biotin 10,000 mcg capsule 10,000 mcg PO Q48H 08/28/24 12/16/24 History
fluticasone propionate 50 1 spray intranasal DAILYPRN PRN 12/16/24 12/16/24 History
mcg/actuation nasal congestion
spray,suspension
metformin 500 mg tablet,extended 500 mg PO BID 12/16/24 12/16/24 History
release 24hr (osmotic)
warfarin 7.5 mg tablet 3.75 mg PO TH 12/16/24 12/16/24 History
warfarin 7.5 mg tablet 7.5 mg PO SUMOTUWEFRSA 12/16/24 12/16/24 History
Review of Systems
-
History Source: Patient
All other systems: Negative unless noted
Constitutional: Fatigue
EENT: No Symptoms
Respiratory: No Symptoms
Cardiac: No Symptoms
Abdomen/GI: No Symptoms
: Bleeding
Musculoskeletal: No Symptoms
Skin: No Symptoms
Neurological: No Symptoms
Endocrine: No Symptoms
Hematologic/Lymphatic: No Symptoms
Physical Exam
Vital Signs
Temp Pulse Resp BP Pulse Ox
98.1 F 72 23 171/65 96
12/17/24 02:00 12/17/24 08:00 12/17/24 08:00 12/17/24 08:00 12/17/24 08:00
Lab Results
12/17/24 03:14
12/17/24 03:13
Troponin I 0.202 ng/ml H* D 12/17/24 03:13
Physical Exam
General: Well Developed, Well Nourished and No Apparent Distress
HEENT: Normocephalic, Anicteric and Moist Mucous Membranes
Respiratory: Clear and Non Labored Respirations
Cardiac: S1/S2, Regular Rhythm and Murmur (IV/ JOSSE)
Breast: Deferred by me
GI: Soft, Non Tender, Non Distended and Normal Bowel Sounds
Rectal: Deferred by Provider
Genito-urinary: No Costovertebral Tender
Musculoskeletal: No Clubbing, No Cyanosis and No Edema
Skin: Warm and Dry
Neuro: AO x 3
Hematologic/Lymphatic: No Lymphadenopathy
Psych: Calm
Impression / Plan
-
IMPRESSION/PLAN: 79F with HFpEF, paroxysmal atrial fibrillation (on warfarin, ablation 06/2024), hypertension, PAD, aortic stenosis, dyslipidemia, SSS s/p PPM, and NIDDM with hyperglycemia who presented to the emergency department with a chief
complaint of bloody urine.
Primary [employer]: Dr. Edgar
Hypertensive emergency
-Her EKG changes and abnormal troponin occurred after blood pressure was controlled
-No acute findings on CTA
Type II WI, precipitant unknown, perhaps critical illness
-No ASA with active bleeding
-Trend trop to peak, currently chest pain-free
-Echocardiogram today
Hematuria
-She was unknowingly prescribed NSAID while in [facility], this has been stopped
-Her warfarin has already been held for several days
-Uro consulted
Paroxysmal atrial fibrillation
-In sinus rhythm, burden on most recent device check 19.3%
-Ablation 07/22/2024
-Oral Anticoagulation: Warfarin, INR on hold with hematuria
-[id number]: score 7 (HTN, CHF, age 75 or more, Diabetes Mellitus, Vascular disease, female gender)
Aortic stenosis, moderate
-Update TTE today
HFpEF, chronic
-Follow volume status
-She is not on a standing diuretic at home
SSS S/P Medtronic PPM, followed in our device clinic
CATY, > 70%, medically managed
HLD, LDL < 70, continue atorvastatin
NIDDM with hyperglycemia, Hgba1c pending
Data Reviewed
-
EKG: Report Reviewed by me (As above)
CT Scan: Report Reviewed by me (As above)
Medical Tests (Nuc Med, Echo etc): Report Reviewed by me (As above)
Labs: Labs Reviewed by me
Old Records: Reviewed
[2024-12-17] MEDS: CARDIZEM CD 120 MG PO (08:17)
[2024-12-17 08:21] LABS: Glucose - Point of Care 209 mg/dl (70-99)
[2024-12-17] MEDS: NOVOLOG FLEXPEN-LOW RESISTANCE 2 UNITS SC (08:25)
--- NOTE | 2024-12-17 08:28 | CON.INTV ---
Consultation
Consultation Request
Date/Time Consultation Requested: 12/17/2024
Date/Time Consultation Performed: 12/17/2024826
Requesting Provider: Dr. Ferreira
Performing Provider: Dr. Goel
Reason for Consultation: Chest pain/Hypertensive crisis
Medical History
-
Chief Complaint: Lower abdominal pain + nausea/vomiting
History of Present Illness:
79-year-old female with a past medical history of paroxysmal A-fib on Coumadin, moderate persistent asthma, history of SSS s/p dual-chamber pacemaker (02/2021), PAD, right ICA stenosis, dyslipidemia, hypertension, valvular heart disease, history of
chronic hyponatremia, DM type II, GERD, seasonal allergies and nonrheumatic AI who presents with nausea/vomiting and lower abdominal pain. Patient travel to [facility] from November 12 to December 16, 2024. While there she had a cold in the beginning of
her visit. She developed a toothache in her left upper molar and was told by dentist that she had an infection. She was started on Augmentin but then developed hematuria. This was likely due to a drug�drug interaction with her Coumadin.
Hematuria started last (12/12/2024), so she stopped the Augmentin. She also was taking NSAIDs 3 times a day about 2 weeks ago. Initially in the ER she was afebrile to 98.1 �F, pulse rate 73, breathing at 16 breaths minute, BP 199/90, and
saturating 98% on room air. Her BP did go as high as 232/80. Labs showed leukocytosis to 14.3, Hb 11.2, INR 1.81, sodium 131, glucose 194, troponin 0.202, urinalysis with + leukocyte esterase and urine WBC 11�15. COVID-19 antigen was negative. A
CT abdomen/pelvis was performed showing mild right hydronephrosis and proximal to mid right hydroureter. In the ER she was given NS 0.9% X1 liter with Zosyn, Zofran, hydralazine 10 mg, and started on a Cardene drip. Shortly after midnight her
blood pressure dropped to 107/77 and she then developed chest pressure with upper back pain and recurrent nausea. Blood pressure was in the 120s at that time, and the Cardene drip was discontinued. EKG showed new ST changes. Nitroglycerin
administered with improvement in chest heaviness and Zofran also given. CTA chest, abdomen, pelvis performed showing no aortic dissection or any new/acute findings. Patient was then admitted to the ICU for closer monitoring and aluminum boat inspector
services consulted for additional management/recommendations.
Patient was seen and evaluated this morning. Off cardene gtt since she was in the ER. No longer having chest pain and still having blood-tinged urine. Daughter, Maida, at bedside and all questions were answered. VS show: HR 72, BP 171/65 and
SpO2 95%. She feels well currently, denying VALENTINE, nausea, fevers or chills.
PMHx: Paroxysmal A-fib on Coumadin, moderate persistent asthma, history of sick sinus syndrome s/p pacemaker (02/2021), history of PAD, dyslipidemia, right ICA stenosis, hypertension, valvular heart disease, history of chronic hyponatremia, DM type
II, GERD, seasonal allergies, nonrheumatic AI
PSHx: Pacemaker (dual-chamber), bilateral bunion surgery, carpal tunnel release (right), cataract surgery, sinus surgery, tonsillectomy, right reverse TSA, ablation
Past Medical History
Past Medical History: Other (Above as per HPI)
Past Surgical History: Other (Above as per HPI)
Social History
Tobacco: Non-smoker
Alcohol: None
Drug: None
Employment: Retired
Family History
Family History: Cancer (Paternal grandmother: Esophageal cancer), Diabetes (Maternal aunt + sibling), Hypertension (Sibling) and Other (Father: Parkinson's disease)
Allergies / Home Medications
Allergies
Allergy/AdvReac Type Severity Reaction Status Date / Time
cephalexin monohydrate Allergy Hives Verified 12/16/24 17:40
[From Keflex]
codeine Allergy Hives Verified 12/16/24 17:40
Iodinated Contrast Media Allergy Hives Verified 12/16/24 17:40
latex Allergy Itching Verified 12/16/24 17:40
Home Medications
�Medication �Instructions �Recorded �Confirmed �Last Taken �Type
esomeprazole magnesium 20 mg 20 mg PO HS 03/18/21 12/16/24 08/27/24 19:00 History
capsule,delayed release (Nexium)
losartan 100 mg tablet 100 mg PO DAILY 08/16/23 12/16/24 08/27/24 07:00 History
atorvastatin 20 mg tablet 20 mg PO HS 06/28/24 12/16/24 08/27/24 19:00 History
diltiazem HCl 120 mg 120 mg PO DAILY 06/28/24 12/16/24 08/27/24 07:00 History
capsule,extended release 24 hr
diphenhydramine 25 1 tab PO HS 06/28/24 12/16/24 08/27/24 19:00 History
mg-acetaminophen 500 mg tablet
(Tylenol PM Extra Strength)
metoprolol succinate 25 mg 25 mg PO HS 06/28/24 12/16/24 08/27/24 19:00 History
tablet,extended release 24 hr
biotin 10,000 mcg capsule 10,000 mcg PO Q48H 08/28/24 12/16/24 08/27/24 07:00 History
fluticasone propionate 50 1 spray intranasal DAILYPRN PRN 12/16/24 12/16/24 Unknown History
mcg/actuation nasal congestion
spray,suspension
metformin 500 mg tablet,extended 500 mg PO BID 12/16/24 12/16/24 Unknown History
release 24hr (osmotic)
warfarin 7.5 mg tablet 3.75 mg PO TH 12/16/24 12/16/24 Unknown History
warfarin 7.5 mg tablet 7.5 mg PO SUMOTUWEFRSA 12/16/24 12/16/24 Unknown History
Review of Systems
-
History Source: Patient
All other systems: Negative unless noted
Vitals / Labs / Diagnostic Testing
Vital Signs
Temp Pulse Resp BP Pulse Ox
98.2 F 74 23 171/65 96
12/17/24 07:40 12/17/24 08:17 12/17/24 08:00 12/17/24 08:17 12/17/24 08:00
Lab Data
12/17/24 03:14
12/17/24 03:13
Laboratory Results
12/16/24 12/17/24
18:13 03:13
PT 21.2 H 19.5 H
INR 1.81 1.63
Microbiology
12/16/24 18:13 Nasal Swab Influenza Types A & B (MIAH) - Final
Negative for Influenza A & B, NAAT
Negative results must be combined with clinical observations
and patient history.
Nucleic Acid Amplification test (NAAT)performed on the
[employer] platform.
Diagnostic Testing:
Physical Exam
-
HEENT: Normocephalic and Anicteric
Cardiovascular: S1/S2, Murmur (JOSSE heard across precordium) and Peripheral Edema (negative)
Respiratory: Wheeze (negative), Rales (negative), Rhonchi (negative) and Non-Labored Respirations
GI: Soft, Non Distended, Non Tender and Normal Bowel Sounds
Neurology: AO x 3 and Tremors (negative)
Skin: Warm and Dry
General: Respiratory Distress (negative), Comfortable, Fever (negative) and Chills (negative)
Assessment
-
Assessment: 79-year-old female with a past medical history of paroxysmal A-fib on Coumadin, moderate persistent asthma, history of SSS s/p dual-chamber pacemaker (02/2021), PAD, right ICA stenosis, dyslipidemia, hypertension, valvular heart
disease, history of chronic hyponatremia, DM type II, GERD, seasonal allergies and nonrheumatic AI who presents with nausea/vomiting and lower abdominal pain. Patient travel to [facility] from November 12 to December 16, 2024. While there she had a cold
in the beginning of her visit. She developed a toothache in her left upper molar and was told by dentist that she had an infection. She was started on Augmentin but then developed hematuria. This was likely due to a drug�drug interaction with her
Coumadin. Hematuria started last (12/12/2024), so she stopped the Augmentin. She also was taking NSAIDs 3 times a day about 2 weeks ago. Initially in the ER she was afebrile to 98.1 �F, pulse rate 73, breathing at 16 breaths minute, BP
199/90, and saturating 98% on room air. Her BP did go as high as 232/80. Labs showed leukocytosis to 14.3, Hb 11.2, INR 1.81, sodium 131, glucose 194, troponin 0.202, urinalysis with + leukocyte esterase and urine WBC 11�15. COVID-[address] antigen was
[address] abdomen/pelvis was performed showing mild right hydronephrosis and proximal to mid right hydroureter. In the ER she was given NS 0.9% X1 liter with Zosyn, Zofran, hydralazine 10 mg, and started on a Cardene drip. Shortly after
midnight her blood pressure dropped to 107/77 and she then developed chest pressure with upper back pain and recurrent nausea. Blood pressure was in the 120s at that time, and the Cardene drip was discontinued. EKG showed new ST changes.
Nitroglycerin administered with improvement in chest heaviness and Zofran also given. CTA chest, abdomen, pelvis performed showing no aortic dissection or any new/acute findings. Patient was then admitted to the ICU for closer monitoring and
aluminum boat inspector services consulted for additional management/recommendations.
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
hyponatremia, DM type II, GERD, seasonal allergies, nonrheumatic AI
Impression:
#Hypertensive crisis requiring Cardene drip - now off given relative hypotension with development of chest pain + EKG changes
#Nausea/vomiting with abdominal pain likely due to gastritis (confirmed on CT A/P)
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
#Elevated troponin likely due to demand ischemia with type II VA (peaked at 0.396 on 12/17/2024)
#Suspected UTI with urinalysis showing +1 leukocyte esterase and 11�15 urine WBC
#Mild right hydronephrosis with proximal to mid right hydroureter
#Paroxysmal A-fib on Coumadin
#Leukocytosis
#Acute anemia (baseline Hb 12-14 g/dL)
#Hyponatremia
#DM type II (HbA1c: 6.7 on 12/17/2024)
Plan:
- Patient was found to be hypertensive in the ER with SBP up to the 230s, and she was started on Cardene drip
- Shortly after midnight, her BP dropped to the 110s-120s and she developed chest discomfort/back pain with recurrent nausea, with EKG showing some slight ST segment downsloping in the inferolateral leads
- Cardene drip turned off, and as of this morning her symptoms markedly improved with resolution of chest/back pain and her EKG reverted back to normal
- Low threshold to resume Cardene drip again if needed
- Continue to monitor for chest/back pain; continue trending troponin until it begins to downtrend (peaked today at 0.396)
- Recommend to reduce SBP by 25% in the first 24 hours, keeping SBP 150-170mmHg
- Give prn hydralazine for now, and resume home PO meds, holding for BP dropping too quickly
- Echo checked today shows normal biventricular size and systolic function without regional WMA. Dense mitral annular calcification with mild functional mitral stenosis, with moderate AAS with peak/mean gradient of 40/25 mmHg, YOLETTE 1.1 cm�, with
mild TR and normal PASP at 30 mmHg - compared to prior echo in April 2024, her PASP has decreased from 51 mmHg to 30 mmHg
- Continue with antibiotics with Zosyn
- Follow-up urine culture (collected 12/12/2024 � TD)
- Trend WBC and monitor fever curve
- Maintain SpO2 >90-94% using supplemental O2 if needed
- Maintain MAP>65
- Replete electrolytes with K>4, Mg>2
- Maintain euglycemia with goal BG 140-180; HbA1C: 6.7 on 12/17/2024
- Trend H/H and transfuse if needed to keep Hb>7g/dL; keep plt>20k, unless there is concern for bleeding then keep plt>50k
- prn nebulized bronchodilators - not currently bronchospastic
- Incentive spirometer encouraged 10x per hour for at least 4 hrs a day
- Been off coumadin since last Monday/ when her hematuria started
- PT/OT
- PPI (home med)
- DVT ppx: SCDs for now
Critical care statement: A total of 37 minutes of critical care time was provided for this patient today. This includes management of unstable vital signs, evaluation of the patient at bedside, reviewing the patient's pertinent medical records
including radiographs, microbiology, laboratory evaluations, and discussion with primary team, consultants, pharmacy, nutrition, physical therapy, case management, charge nurse, critical care nursing, and respiratory therapy.
Data:
Transthoracic echocardiogram 12/17/2024:
Normal biventricular size and systolic function without regional wall motion
abnormality. LVEF 65-70%.
Dense mitral annular calcification with mild functional mitral stenosis.
Moderate aortic stenosis (peak/mean gradient 40/25 mmHg, YOLETTE 1.1 cm2).
Mild tricuspid regurgitation with normal pulmonary artery pressure (30 mmHg).
Compared to prior transthoracic echocardiogram on 05/22/2024, PASP has decreased
from 51 mmHg to 30 mmHg. Echocardiogram otherwise unchanged.
CT abdomen/pelvis 12/16/2024: Mild right hydronephrosis and proximal to mid right hydroureter. Increased attenuation in the right renal collecting system most suspicious for mild blood products.
CTA chest/abdomen/pelvis with/without contrast 12/17/2024:
1.No aortic aneurysm or dissection.
2. There is mild right-sided hydroureteronephrosis with nonspecific perinephric stranding. The collecting system appears hyperdense which is unchanged from recent prior CT and favored to represent blood products. Recommend short interval follow-up
to ensure there is no underlying mass.
3. Mild diffuse gastric wall thickening which can be seen with underdistention, however gastritis could appear similar.
--- NOTE | 2024-12-17 09:00 | PTCARENOTE ---
Rec'd care of patient at 0700. Patient alert and oriented. Ambulatory in room with standby supervision. NSR on tele. +Murmur. Denies cp. BP elevated. 0800 dose of Cardizem administered. Pulse ox 95-96% on RA. Lung sounds diminished in b/l base. +BS.
NPO. No n/v. No BM. Voiding in bathroom. Hematuria. Peripheral INTs capped. OOB in chair at 0845. Echo pending. Repeat Troponin sent.
[2024-12-17 09:13] LABS: Troponin I 0.396 ng/ml
[2024-12-17 09:14] LABS: Glycohemoglobin (HgbA1c) 6.7 % (4.0-5.6)
--- NOTE | 2024-12-17 10:34 | PTCARENOTE ---
Echo in progress.
--- NOTE | 2024-12-17 11:01 | W.PN.UPDATE ---
Update Note
Progress Note Update
This is an addendum to the medical consultation note by ANOOP Burroughs. I saw and examined the patient independently. I have reviewed the ANOOP's note and agree with the findings.
Mary Kay is an 79-year-old female (known to Dr. Edgar) with HFpEF, paroxysmal atrial fibrillation (ablation 2023), hypertension, PAD, diabetes who presents with hematuria and abdominal pain in the setting of recent NSAID use for dental
infection. She is being treated for UTI with antibiotics. On admission she was noted to be hypertensive with systolic blood pressures in the 220s to 230s. She was started on a nicardipine drip which lowered her blood pressure to 120s/60s. In
that setting she developed chest pressure and back pain. She was given 1 sublingual nitro which helped with her pain and the nicardipine was stopped. CTA was negative for dissection. Her chest pressure and back pain have since resolved and at
this time she is asymptomatic. She is fairly active for 79 years old. She just went on a trip to [place] and did a lot of walking with no chest pain/pressure or shortness of breath. On exam she is well-appearing, heart is regular rate and rhythm
with harsh systolic murmu, lungs are clear to auscultation bilaterally, and she has no lower extremity edema. Labs are notable for WBC 14, INR 1.8, creatinine 0.8, troponin 0.012 -> 0.202 -> 0.396. Twelve-lead ECG at the time of her chest pressure
reveals dynamic T wave changes in the anterolateral leads which resolved on her 6 AM ECG. She had a Lexiscan stress test in April 2024 which showed normal perfusion. In summary, it seems that she had an episode of type II myocardial ischemia around
midnight last night associated with chest pressure, ECG changes and subsequently elevated troponins. This was likely due to decreased myocardial perfusion in the setting of rapidly lowering her blood pressure and not due to plaque rupture. She is
currently chest pain-free. I do not think that she needs treatment for ACS (ie: DAPT, heparin drip, cath) especially in light of her ongoing hematuria. We will follow-up her echo to ensure no new LV dysfunction or wall motion abnormalities. We
should trend her troponin to peak. She is on good medical therapy for chronic CAD including atorvastatin and beta-yoana which will be continued. She is not on aspirin due to systemic anticoagulation. She reports that her home blood pressures
are well-controlled. We will continue to monitor here, and if they are still elevated we can switch her metoprolol to carvedilol prior to discharge. Also discussed switching her warfarin to DOAC. We will ask case management for pricing of Xarelto
and Eliquis. Plan discussed with hospitalist service and patient's daughter at bedside. We will continue to follow along. Please call with any additional questions or concerns.
[2024-12-17] MEDS: APRESOLINE 5 MG IV ×2 (11:08→21:24)
--- NOTE | 2024-12-17 11:38 | CM ---
CM reviewed chart, patient seen bedside with daughter, initial assessment completed. Patient resides independently in a one story condo, no steps to enter. Patient will be discharging to daughters home, patient will stay on first floor, three steps
to enter home. Patient reports she has a cane at home if needed, denies VN or SNF history. Patient PCP Saravanan Carl, pharmacy [facility]. Consult received for cost of Apixaban 5mg 2x day, Xarelto 15 mg daily, call to pharmacy, unable to
check cost per pharmacist, will need scripts sent over to check cost. CM will continue to follow for all discharge planning needs.
Plan; home with daughter, watch for VN needs, will follow up with pharmacy regarding cost of medications.
--- NOTE | 2024-12-17 11:59 | CONS.URO ---
Consultation
-
Performing Provider: Peffer
Reason for Consultation: Hematuria, R hydronephrosis
Medical History
History of Present Illness
79F without past urologic history
with HFpEF, paroxysmal atrial fibrillation (ablation 2023), hypertension, PAD, diabetes who presents with hematuria and abdominal pain in the setting of recent NSAID use for dental infection
Blood in urine started on monday. She denies UTI symptoms or fevers
UA moderately positive and with leukocytosis
CT scan in ED showed R hydronephrosis with dense material in R renal pelvis and ureter, most consistent with clot
She was admitted for observation and had an acute hypertensive episode with type II DE overnight
subsequent angiogram did not show obvious tumor of kidney or collecting system but with some persistent hydronephrosis and perinephric stranding, dense products in renal pelvis
This morning her flank pain has resolved after starting to have some visible blood in urine again this AM
She is being managed by cardiology for hypertensive episode and DE and has several diagnostics scheduled today
She remains off her usual anticoagulation with warfarin
No prior hematuria episodes
No fam hx cancer
nonsmoker
Past Medical History
Past Medical History: Other (HLDPAD atrial fib sick sinus syndrome gerd mitral stenosis aortic stenosis type 2 DM carotid stenosis htn pulmonary HTN)
Past Surgical History: Other (pacemaker bilateral bunion surgery carpel tunnel release cataracts sinus surgery tonsillectomy)
Family History
Family History: Reviewed & Not Pertinent
Allergies/Home Medications
Allergies
Allergy/AdvReac Type Severity Reaction Status Date / Time
cephalexin monohydrate Allergy Hives Verified 12/16/24 17:40
[From Keflex]
codeine Allergy Hives Verified 12/16/24 17:40
Iodinated Contrast Media Allergy Hives Verified 12/16/24 17:40
latex Allergy Itching Verified 12/16/24 17:40
Home Medications
�Medication �Instructions �Recorded �Confirmed �Type
esomeprazole magnesium 20 mg 20 mg PO HS 03/18/21 12/16/24 History
capsule,delayed release (Nexium)
losartan 100 mg tablet 100 mg PO DAILY 08/16/23 12/16/24 History
atorvastatin 20 mg tablet 20 mg PO HS 06/28/24 12/16/24 History
diltiazem HCl 120 mg 120 mg PO DAILY 06/28/24 12/16/24 History
capsule,extended release 24 hr
diphenhydramine 25 1 tab PO HS 06/28/24 12/16/24 History
mg-acetaminophen 500 mg tablet
(Tylenol PM Extra Strength)
metoprolol succinate 25 mg 25 mg PO HS 06/28/24 12/16/24 History
tablet,extended release 24 hr
biotin 10,000 mcg capsule 10,000 mcg PO Q48H 08/28/24 12/16/24 History
fluticasone propionate 50 1 spray intranasal DAILYPRN PRN 12/16/24 12/16/24 History
mcg/actuation nasal congestion
spray,suspension
metformin 500 mg tablet,extended 500 mg PO BID 12/16/24 12/16/24 History
release 24hr (osmotic)
warfarin 7.5 mg tablet 3.75 mg PO TH 12/16/24 12/16/24 History
warfarin 7.5 mg tablet 7.5 mg PO SUMOTUWEFRSA 12/16/24 12/16/24 History
Physical Exam
Vital Signs
Vital Signs
Temp Pulse Resp BP Pulse Ox
98.2 F 71 26 174/70 97
12/17/24 07:40 12/17/24 11:08 12/17/24 11:03 12/17/24 11:08 12/17/24 11:03
Lab / Testing Results
Laboratory Results
12/17/24 03:14
12/17/24 03:13
Physical Exam
General: Well Developed, Well Nourished and No Apparent Distress
HEENT: Normocephalic
GI: Soft and Non Tender
Genito-urinary: No Costovertebral Tend
Neuro: AO x 3
Psych: Calm and Intact Judgement
Assessment / Plan
-
79F on anticoagulation for afib, recent dental infection tx with abx and NSAID, admitted with gross hematuria, flank pain, R hydronephrosis, leukocytosis
Hypertensive emergency and DE with troponin elevation
CT showing dense products, likely obstructive clot, in R collecting system
- R flank pain has resolved with return of some mild hematuria this AM, suggesting R kidney is now draining
- Plan for continued observation off anticoagulation if this is safe from cardiology standpoint - per their notes, DE is likely non obstructive and acute AC not required
- Continue abx for possible UTI pending cultures
Source of bleeding is spontaneous vs infection related vs upper urinary tract tumor. Will need further workup that is better to do once any clots have dissolved if possible
- Schedule for outpatient cystoscopy next Sunday 12/24
- CT Urogram for upper tract imaging in 1-2 weeks to allow blood clot to dissolve first
- Ideally coumadin would be held until after CT scan, but if this is high risk she can resume AC once blood in urine has resolved
- ASA is okay to start prior to discharge
Discussed plan with Dr. Meneses who is patient's son in law
Data Reviewed
-
CT Scan: Image personally visualized and interpreted
Lab Data: Labs Reviewed
[2024-12-17] MEDS: NOVOLOG FLEXPEN-LOW RESISTANCE 1 UNITS SC ×2 (12:19→17:02)
--- NOTE | 2024-12-17 12:21 | PTCARENOTE ---
No changes in assessment. Vitals stable. BP improved s/p 1x dose of 5mg IV Hydralazine. Patient oob in chair for lunch. Call [employer] within reach.
[2024-12-17 12:25] LABS: Glucose - Point of Care 163 mg/dl (70-99)
--- NOTE | 2024-12-17 14:59 | W.PN.HOSP.TC ---
Today's Communication/Plan
-
cont abx
f/u cultures
holding anticoag
monitor hgb along with hematuria
PPI
Titrate BP meds as needed
Assessment / Plan
Assessment / Plan
Physical Exam
General: Well Developed, Well Nourished and No Apparent Distress
HEENT: NormoCephalic, Moist mucous membranes and Atraumatic
Respiratory: Clear
Cardiac: S1/S2 and Regular Rhythm; No Murmur or Rub
GI: Soft, Non Tender, Non Distended and Normal Bowel Sounds; No Organomegaly
Rectal: Deferred by Provider
Musculoskeletal: No Clubbing, No Cyanosis and No Edema
Skin: No Rash
Neuro: AO x 3 and Nonfocal/grossly intact
Psych: Calm
#Right flank pain
# Gross hematuria
#Right hydroureteronephrosis
� CT abdomen pelvis showing dense products, likely obstructive clot in the collecting system, right ureter
� Still having mild hematuria
� Continue to monitor off anticoagulation
-Will need further workup that is better to do once any clots have dissolved if possible
-Schedule for outpatient cystoscopy next Sunday 12/24
- CT Urogram for upper tract imaging in 1-2 weeks to allow blood clot to dissolve first
-hold anticoag
#?UTI v Pyelonephritis
-will cont abx
f/u cultures
-standing may be related to blood clot formation causing retention
#Chest Pressure
# hypertensive emergency
#Elevated Troponin - suspect non ischemic mycocardial injury
�Dynamic T wave changes, resolved on a.m. EKG
� Cardiology consulted
� Currently chest pain-free
� Follow-up echocardiogram
� Trend troponins to peak
-Cont diltiazem, toprol for now
-hydral prn
-Holding losartan
#Chronic CAD
� Continue statin, beta-yoana�probably can be switched over to Coreg prior to discharge
� Was on aspirin due to systemic anticoagulation
#Sick sinus syndrome status post Medtronic dual-chamber pacemaker, pacemaker in place
#Paroxysmal atrial fibrillation
� Ablation 2023
� Patient on warfarin(held for hematuria for now), cards will request pricing for Xarelto and Eliquis
#Mild diffuse gastric wall thickening
-can be seen with underdistention, however gastritis could appear similar.
-f/u gi outpt
-dc on ppi
#anemia of chronic disease
-ctm closely
-ensure hgb > 7
#chronic hyponatremia
-ctm
-fwr
#Aortic stenosis
# Hyperlipidemia.
-statin continued
#Non insulin-dependent diabetes
-hold metformin
-sliding scale
-CHO diet
#Gastroesophageal reflux disease.
-PPI continued
#DVT prophylaxis
-scd
#CODE status
-full code
Total time spent on today's encounter was 51 minutes which included time spent in counseling the patient/family regarding diagnosis and treatment plan as listed above, goals of care, and symptom management. Case was discussed with nursing staff,
specialists, and care coordinators/case management. All labs and imaging personally reviewed by me. Remainder the time spent in detailed review of previous records, lab data, imaging, and other medical provider documentation.
Anticipated Discharge: > 48 hours
Subjective/Interval History
-
Date of Service: December 17, 2024
flank pain resolved, still having visible urine
Objective Data
-
Labs:
Laboratory Results
12/17/24 12/17/24
03:13 03:14
WBC 15.9 H
Hgb 10.4 L
Hct 29.7 L
Plt Count 333
PT 19.5 H
INR 1.63
Sodium 130 L
Potassium 3.8
Chloride 98
Carbon Dioxide 22
BUN 12
Creatinine 0.8
Glucose 156 H
Calcium 8.5
Vital Signs:
Vital Signs
Temp Pulse Resp BP Pulse Ox
98.8 F 73 19 141/80 95
12/17/24 11:40 12/17/24 14:00 12/17/24 14:00 12/17/24 14:00 12/17/24 14:00
I&O
12/16/24 12/17/24 12/18/24
06:59 06:59 06:59
Intake Total 480 / 480 240 / 240
Output Total 400 / 400
Balance 80 / 80 240 / 240
Review of Systems
-
History Source: Patient
All other systems: Not reviewed unless documented
Data Reviewed
-
CT Scan: Report Reviewed by me
Labs: Labs Reviewed by me
[2024-12-17 15:15] LABS: Troponin I 0.229 ng/ml
--- NOTE | 2024-12-17 16:18 | PTCARENOTE ---
Assessment unchanged. Vitals stable. NSR on tele.
--- NOTE | 2024-12-17 17:06 | PTCARENOTE ---
Urine output yellow with pink tinge.
[2024-12-17 17:08] LABS: Glucose - Point of Care 168 mg/dl (70-99)
--- NOTE | 2024-12-17 20:30 | PTCARENOTE ---
Received patient AAOx3, following commands, denying pain. Normal sinus 70s, + murmur, +1 LUE edema. Palpable radial and pedal pulses b/l. Afebrile, SBP >180, prn hydralazine given. 97% on room air, lung sounds diminished in the bases. Positive bowel
sounds, abdomen soft, round. Patient voids in bathroom. Bruises on b/l lower extremities. PIVs patent, WNL. Call gamez within reach.
[2024-12-17] MEDS: TOPROL XL 25 MG PO (20:59)
[2024-12-17] MEDS: SENOKOT-S 1 TABLET PO (20:59)
[2024-12-17] MEDS: LIPITOR 20 MG PO (20:59)
[2024-12-17] MEDS: PROTONIX 40 MG PO (21:09)
[2024-12-17 23:23] LABS: Glucose - Point of Care 152 mg/dl (70-99)
[2024-12-17] MEDS: NOVOLOG FLEXPEN 1 UNITS SC (23:42)
[2024-12-17] MEDS: MELATONIN 3 MG PO (23:56)
[2024-12-18] VITALS (23 sets, daily range): BP systolic 81–175; BP diastolic 57–80; PULSE 74–88; O2SAT 95; BMI 33.3
--- NOTE | 2024-12-18 01:24 | PTCARENOTE ---
Patient given melatonin for sleep. Otherwise patient assessment unchanged from previous.
[2024-12-18 04:05] LABS: Hematocrit 30.3 % (37.0-47.0); Hemoglobin 10.4 g/dL (12.0-16.0); Mean Corp Hgb Conc. 34.3 g/dL (33.0-37.0); Mean Corpuscular Hgb 28.8 pg (27.0-31.0); Mean Corpuscular Volume 83.9 fL (81.0-99.0); Mean Platelet Volume 9.1 fL (7.4-10.4); Platelet Count 384 10^3/uL (130-400); Red Blood Cell Count 3.61 10^6/uL (4.20-5.40); Red Cell Dist. Width 12.9 % (11.5-14.5); White Blood Cell Count 12.6 10^3/uL (4.8-10.8)
[2024-12-18 04:09] LABS: INR 1.39; PT 17.3 Sec (11.4-14.6)
[2024-12-18 04:18] LABS: Blood Urea Nitrogen 19 mg/dl (7-17); Calcium 8.7 mg/dl (8.4-10.2); Carbon Dioxide 24 mmol/L (22-30); Chloride 97 mmol/L (98-107); Estimated Creatinine Clearance 42 ml/min; Glucose 132 mg/dl (70-99); Potassium 3.5 mmol/L (3.5-5.1); Sodium 134 mmol/L (135-145); eGFR > 60.00
--- NOTE | 2024-12-18 04:28 | PTCARENOTE ---
Standby assist to bathroom, labs sent. Warm blankets provided, otherwise patient assessment unchanged from previous.
[2024-12-18] MEDS: ZOSYN 50 IV ×2 (05:13→11:27)
[2024-12-18] MEDS: KCL 20 MEQ PO (05:59)
--- NOTE | 2024-12-18 07:00 | PTCARENOTE ---
report received from previous RN at change of shift. Pt resting comfortably, OOB in chair. AAOx3. pt denies pain. SR on telemetry heart rate in 80s. pulses palpable. +1 lower extremity edema. pt on room air. sat 95%. lung sounds diminished in bases.
active bowel sounds, tolerating diet. voiding in bathroom yellow urine. pt updated on plan of care. see worklist for full nursing assessment and interventions
[2024-12-18] MEDS: BenGay-Like 1 APPLIC TOPICAL ×2 (07:11→13:06)
[2024-12-18] MEDS: CARDIZEM CD 120 MG PO (07:40)
[2024-12-18] MEDS: NOVOLOG FLEXPEN-LOW RESISTANCE 1 UNITS SC ×2 (07:40→12:33)
[2024-12-18 07:50] LABS: Glucose - Point of Care 167 mg/dl (70-99)
--- NOTE | 2024-12-18 08:20 | W.PN.INTV ---
Today's Communication / Plan
Recommendations
Hematuria resolves
Starting Eliquis as per cardiology, cleared to do so per urology
Outpatient cystoscopy, no need to hold Eliquis prior to procedure per urology
Consider checking orthostatics given dizziness upon standing
Trend H&H
Follow-up urine culture
Up OOB as tolerated
PT/OT
Patient has markedly improved and no longer requires ICU level care. Stable for downgrade to telemetry. No additional recommendations at this time. Fishing Rod Assembler/Pulmonary service will now sign off. Please reconsult if there are any additional
questions/concerns, or if patient's respiratory status deteriorates.
Assessment
-
Assessment: 79-year-old female with a past medical history of paroxysmal A-fib on Coumadin, moderate persistent asthma, history of SSS s/p dual-chamber pacemaker (02/2021), PAD, right ICA stenosis, dyslipidemia, hypertension, valvular heart
disease, history of chronic hyponatremia, DM type II, GERD, seasonal allergies and nonrheumatic AI who presents with nausea/vomiting and lower abdominal pain. Patient travel to [facility] from November 12 to December 16, 2024. While there she had a cold
in the beginning of her visit. She developed a toothache in her left upper molar and was told by dentist that she had an infection. She was started on Augmentin but then developed hematuria. This was likely due to a drug�drug interaction with her
Coumadin. Hematuria started last (12/12/2024), so she stopped the Augmentin. She also was taking NSAIDs 3 times a day about 2 weeks ago. Initially in the ER she was afebrile to 98.1 �F, pulse rate 73, breathing at 16 breaths minute, BP
199/90, and saturating 98% on room air. Her BP did go as high as 232/80. Labs showed leukocytosis to 14.3, Hb 11.2, INR 1.81, sodium 131, glucose 194, troponin 0.202, urinalysis with + leukocyte esterase and urine WBC 11�15. COVID-[address] abdomen/pelvis was performed showing mild right hydronephrosis and proximal to mid right hydroureter. In the ER she was given NS 0.9% X1 liter with Zosyn, Zofran, hydralazine 10 mg, and started on a Cardene drip. Shortly after
midnight her blood pressure dropped to 107/77 and she then developed chest pressure with upper back pain and recurrent nausea. Blood pressure was in the 120s at that time, and the Cardene drip was discontinued. EKG showed new ST changes.
Nitroglycerin administered with improvement in chest heaviness and Zofran also given. CTA chest, abdomen, pelvis performed showing no aortic dissection or any new/acute findings. Patient was then admitted to the ICU for closer monitoring and
bail attacher services consulted for additional management/recommendations.
Chronic conditions [employer]: Paroxysmal A-fib on Coumadin, moderate persistent asthma, history of sick sinus syndrome s/p pacemaker (02/2021), history of PAD, dyslipidemia, right ICA stenosis, hypertension, valvular heart disease, history of chronic
hyponatremia, DM type II, GERD, seasonal allergies, nonrheumatic AI
Impression:
#Hypertensive crisis requiring Cardene drip - now off given relative hypotension with development of chest pain + EKG changes - HTN crisis now resolved
#Nausea/vomiting with abdominal pain likely due to gastritis (confirmed on CT A/P) - N/V now resolved
#Hematuria due to combination of NSAIDs and Augmentin [employer] while on Coumadin - hematuria now resolved
#Elevated troponin likely due to demand ischemia with type II DE (peaked at 0.396 on 12/17/2024)
#Suspected UTI with urinalysis showing +1 leukocyte esterase and 11�15 urine WBC
#Mild right hydronephrosis with proximal to mid right hydroureter
#Paroxysmal A-fib on Coumadin
#Leukocytosis
#Acute anemia (baseline Hb 12-14 g/dL)
#Hyponatremia
#DM type II (HbA1c: 6.7 on 12/17/2024)
Plan:
- On admission, patient was found to be hypertensive in the ER with SBP up to the 230s, and she was started on Cardene drip
- On the day of admission shortly after midnight, her BP dropped to the 110s-120s and she developed chest discomfort/back pain with recurrent nausea, with EKG showing some slight ST segment downsloping in the inferolateral leads
- Cardene drip turned off, and as of yesterday morning her symptoms markedly improved with resolution of chest/back pain and her EKG reverted back to normal
- She has not required Cardene drip to be resumed
- Continue to monitor for chest/back pain; trop peaked yesterday at 0.396, no longer need to continue trending at this time
- Recommended to reduce SBP by 25% in the first 24 hours, keeping SBP 150-170mmHg
- Continue prn hydralazine for now, and continue home PO meds, holding for hypotension
- Echo checked yesterday shows normal biventricular size and systolic function without regional WMA. Dense mitral annular calcification with mild functional mitral stenosis, with moderate AAS with peak/mean gradient of 40/25 mmHg, YOLETTE 1.1 cm�,
with mild TR and normal PASP at 30 mmHg - compared to prior echo in April 2024, her PASP has decreased from 51 mmHg to 30 mmHg
- Continue with antibiotics with Zosyn
- Follow-up urine culture (collected 12/12/2024 � [facility])
- Trend WBC and monitor fever curve
- Maintain SpO2 >90-94% using supplemental O2 if needed
- Maintain MAP>65
- Replete electrolytes with K>4, Mg>2
- Maintain euglycemia with goal BG 140-180; HbA1C: 6.7 on 12/17/2024
- Trend H/H and transfuse if needed to keep Hb>7g/dL; keep plt>20k, unless there is concern for bleeding then keep plt>50k
- prn nebulized bronchodilators - not currently bronchospastic
- Incentive spirometer encouraged 10x per hour for at least 4 hrs a day
- Been off coumadin since last Monday/ when her hematuria started --> will be started on Eliquis per cardiology
- PT/OT
- PPI (home med)
- DVT ppx: Starting Eliquis; continue to monitor for recurrence of hematuria; urology on board and recommendations appreciated; cystoscopy as an outpatient and Eliquis does not need to be held prior to procedure as per urology
Patient has markedly improved and no longer requires ICU level care. Stable for downgrade to telemetry. No additional recommendations at this time. Fishing Rod Assembler/Pulmonary service will now sign off. Thank you for allowing us to be involved in the
care of this patient. Please reconsult if there are any additional questions/concerns, or if patient's respiratory status deteriorates.
Data:
Transthoracic echocardiogram 12/17/2024:
Normal biventricular size and systolic function without regional wall motion
abnormality. LVEF 65-70%.
Dense mitral annular calcification with mild functional mitral stenosis.
Moderate aortic stenosis (peak/mean gradient 40/25 mmHg, YOLETTE 1.1 cm2).
Mild tricuspid regurgitation with normal pulmonary artery pressure (30 mmHg).
Compared to prior transthoracic echocardiogram on 05/22/2024, PASP has decreased
from 51 mmHg to 30 mmHg. Echocardiogram otherwise unchanged.
CT abdomen/pelvis 12/16/2024: Mild right hydronephrosis and proximal to mid right hydroureter. Increased attenuation in the right renal collecting system most suspicious for mild blood products.
CTA chest/abdomen/pelvis with/without contrast 12/17/2024:
1.No aortic aneurysm or dissection.
2. There is mild right-sided hydroureteronephrosis with nonspecific perinephric stranding. The collecting system appears hyperdense which is unchanged from recent prior CT and favored to represent blood products. Recommend short interval follow-up
to ensure there is no underlying mass.
3. Mild diffuse gastric wall thickening which can be seen with underdistention, however gastritis could appear similar.
Total time spent today was 56 minutes for this encounter. Time includes reviewing laboratory test/imaging results, reviewing pertinent medical records, obtaining and reviewing medical history, performing an appropriate exam, ordering medications,
tests and procedures. Time also includes documentation of this encounter, coordinating patient care and communicating with other healthcare professionals. Total time does not include separately billed tests performed on this date of service.
Subjective Dataa
Subjective Data
Date of Service:
Date of Service: December 18, 2024
Chief Complaint: Fishing Rod Assembler Follow Up
Subjective:
Pt seen and evaluated this AM. She is resting in bed in NAD. Hematuria resolved since last night. She feels little dizzy upon standing but no SOB or chest pain. HR 82, BP 139/67 and SpO2 96% on room air. She denies VALENTINE, abd pain, N/V/f/c.
Review of Systems
General: Other (Negative unless mentioned above)
Objective Data
Data Reviewed
Vital Signs / I&O / Oxygen:
Vital Signs
Temp Pulse Resp BP Pulse Ox
97.6 F 81 15 139/67 95
12/18/24 04:28 12/18/24 09:04 12/18/24 05:00 12/18/24 09:04 12/18/24 05:00
Intake and Output
12/17/24 12/18/24 12/19/24
06:59 06:59 06:59
Intake Total 480 / 480 630 / 630
Output Total 400 / 400
Balance 80 / 80 630 / 630
SaO2 95
Physical Exam
General: Respiratory Distress (negative), Comfortable, Chills (negative) and Sweats (negative)
HEENT: Normocephalic and Anicteric
Cardiovascular: S1-S2, Murmur (JOSSE heard across precordium, grade IV/) and Peripheral Edema (negative)
Respiratory: Clear, Wheeze (negative), Crackles (negative), Rhonchi (negative) and Non-Labored Respirations
GI: Soft, Non Distended, Non Tender and Normal Bowel Sounds
Neurology: AO x 3 and Tremors (negative)
Skin: Warm, Dry, Cyanosis (negative) and Jaundice (negative)
Labs/Micro/Reports
Lab Data
12/18/24 03:46
12/18/24 03:46
Laboratory Results
12/18/24
03:46
PT 17.3 H
INR 1.39
Microbiology
12/16/24 18:15 Urine Urine Culture - Final
12/16/24 18:13 Nasal Swab Influenza Types A & B (MIAH) - Final
Negative for Influenza A & B, NAAT
Negative results must be combined with clinical observations
and patient history.
Nucleic Acid Amplification test (NAAT)performed on the
[employer] platform.
--- NOTE | 2024-12-18 08:47 | W.PN.URO.CBU ---
Today's Communication / Plan
-
Follow up for cystoscopy and CT Urogram to evaluate source of bleeding
Short outpatient antibiotic course
Okay to resume anticoagulation at discharge given high risk
Assessment / Plan
-
79F on anticoagulation for afib, recent dental infection tx with abx and NSAID, admitted with gross hematuria, flank pain, R hydronephrosis, leukocytosis
Hypertensive emergency and VT with troponin elevation
CT showing dense products, likely obstructive clot, in R collecting system
Source of bleeding is spontaneous vs infection related vs upper urinary tract tumor. Will need further workup that is better to do once any clots have dissolved
- R flank pain and hematuria have resolved
- Urine culture showed only mixed alberto. Given lack of UTI symptoms and mild urinalysis would suspect no true infection, but recommend a short outpatient course of oral antibiotic for 3 days for total 5 day abx course
- Scheduled for outpatient cystoscopy next Sunday 12/24
- CT Urogram for upper tract imaging in 1-2 weeks to allow blood clot to dissolve first
- Ideally anticoagulation would be held until after CT scan, but given high CHADS score it is reasonable to restart. Jamila would be ideal so she could stop it again if bleeding returns
Stable for discharge from urology standpoint
Diagnosis
-
Date of Service: December 18, 2024
-
Patient Diagnosis:
Post Op Day:
Objective
-
Vital Signs
Temp Pulse Resp BP Pulse Ox
97.6 F 80 15 147/67 95
12/18/24 04:28 12/18/24 07:40 12/18/24 05:00 12/18/24 07:40 12/18/24 05:00
Intake and Output
12/17/24 12/18/24 12/19/24
06:59 06:59 06:59
Intake Total 480 / 480 630 / 630
Output Total 400 / 400
Balance 80 / 80 630 / 630
Intake:
Oral fluids 480 / 480 480 / 480
IV piggybacks 150 / 150
Output:
Urine, Voided 400 / 400
Other:
Number of approximated MODERATE 1
amounts of urine
Laboratory Results
12/18/24 03:46
12/18/24 03:46
Physical Exam
-
General - well developed, well nourished, no acute distress
Chest - clear bilaterally
Abdomen - soft, non-tender, positive bowel sounds, no CVAT, no incisional pain or distention
Genitalia - normal
Rectal - normal
Skin - warm & dry with no rash
Neuro - AOx3, no motor deficits
Extremities - no clubbing, no cyanosis, no edema
Incision - clean, dry
Dressing - clean, dry, intact
--- NOTE | 2024-12-18 08:48 | W.PN.CD ---
Today's Communication / Plan
-
add back losartan at half home dose (50mg daily)
warfarin held: hopeful to transition to eliquis
-script sent to [facility] for case mgmt to [place]
no more ASA
Impression / Plan
-
IMPRESSION/PLAN: 79F with HFpEF, paroxysmal atrial fibrillation (on warfarin, ablation 06/2024), hypertension, PAD, aortic stenosis, dyslipidemia, SSS s/p PPM, and NIDDM with hyperglycemia who presented to the emergency department with a chief
complaint of bloody urine.
Primary [facility] Turner: Dr. Edgar
Hypertensive emergency: resolved
-No acute findings on CTA
-back on home diltiazem 120mg daily, Toprol XL 25mg daily
-add back losartan at half home dose (50mg daily)
-see below
Type II GA, perhaps in setting of precipitous drop in BP
-No ASA with active bleeding
-Trend trop to peak: 0.396
-Echocardiogram: EF 65-70% with no wall motion abnormality, mild MS, moderate
Hematuria
-She was unknowingly prescribed NSAID while in [place]: this has been stopped
-warfarin held: hopeful to transition to eliquis
-script sent
-no more ASA
Paroxysmal atrial fibrillation
-In sinus rhythm, burden on most recent device check 19.3%
-Ablation 07/22/2024
-Oral Anticoagulation: warfarin held: hopeful to transition to eliquis
-[id number]: score 7 (HTN, CHF, age 75 or more, Diabetes Mellitus, Vascular disease, female gender)
Aortic stenosis, moderate
-stable on echo
HFpEF, chronic
-Follow volume status
-diuretic is prn
SSS S/P Medtronic PPM, followed in our device clinic
CATY, > 70%, medically managed
HLD, LDL < 70, continue atorvastatin
NIDDM with hyperglycemia, Hgba1c pending
Physical Exam
Vital Signs/Labs
Vital Signs
Temp Pulse Resp BP Pulse Ox
97.6 F 80 15 147/67 95
12/18/24 04:28 12/18/24 07:40 12/18/24 05:00 12/18/24 07:40 12/18/24 05:00
12/17/24 12/18/24 12/19/24
06:59 06:59 06:59
Actual Weight 73.4 kg 72.3 kg
12/18/24 03:46
12/18/24 03:46
PT 17.3 Sec (11.4-14.6) H 12/18/24 03:46
INR 1.39 12/18/24 03:46
LAB Results
12/17/24 12/17/24 12/17/24
00:35 03:13 08:40
Troponin I < 0.012 0.202 H* D 0.396 H* D
12/17/24
14:28
Troponin I 0.229 H* D
Physical Exam
Constitutional: No acute distress and Comfortable
EENT: Moist mucous membranes
Cardiovascular: Rhythm & rate is regular, Pedal edema is absent, JVD pressure is normal and Systolic murmur present
Respiratory: Respiratory effort normal and Lungs clear to auscul.
Neuro/Psych: AO x 3
Data Reviewed
-
Date of Service: December 18, 2024
EKG: Other (Tele: SR 60s-70s)
Echo: Report Reviewed by me
Labs: Labs Reviewed by me
[2024-12-18] MEDS: COZAAR 50 MG PO (09:04)
[2024-12-18] MEDS: ELIQUIS 5 MG PO (09:40)
--- NOTE | 2024-12-18 09:48 | CM ---
CM following re: discharge planning.
Reviewed pt's chart, met with pt.
Eliquis 5mg BID [place] checked with [facility] pharmacist. 90 day supply - $45.00 co-pay. Free 30 day coupon given to the pt. Per pharmacist, Eliquis will be available at the pharmacy tomorrow, out of stock today. Pt is aware and she stated that it will be
affordable.
[facility] [facility] [id number] Pt reports she is independent with functional ability and she will not use any after care VN services. per pt, she has 3 children, daughter lives locally and pt will
stay in daughter's house.
IMM reviewed. placed on chart, pt has a copy.
D/C plan: home with no VN needs. Daughter to transport.
--- NOTE | 2024-12-18 10:45 | PTCARENOTE ---
pt sitting in chair, stated she felt dizzy, blood pressure 81/64. dizziness resolved quickly- blood pressure came up to 126/64
--- NOTE | 2024-12-18 10:51 | PTOTSP ---
Pt is able to get OOB and ambulate around ICU without an assistive device with steady gait. No dc needs are anticipated. Will sign off.
--- NOTE | 2024-12-18 12:36 | W.PN.HOSP.TC ---
Addendum entered and electronically signed by John Ferreira MD 12/23/24 14:20:
Non-ischemic myocardial injury
Addendum entered and electronically signed by John Ferreira MD 12/20/24 18:12:
[id number]
Original Note:
Today's Communication/Plan
-
Fosfomycin
Eliquis 5mg BID - stop if hematuria reoccurs
Losartan 50mg daily
F/u CBC and BMP outpt
F/u PCP, Cardiology, Urology outpt. Can decide on GI as per PCP
Outpt urology work up: outpatient cystoscopy next Sunday 12/[address] Urogram for upper tract imaging in 1-2 weeks to allow blood clot to dissolve first
Assessment / Plan
Assessment / Plan
Physical Exam
General: Well Developed, Well Nourished and No Apparent Distress
HEENT: NormoCephalic, Moist mucous membranes and Atraumatic
Respiratory: Clear
Cardiac: S1/S2 and Regular Rhythm; No Murmur or Rub
GI: Soft, Non Tender, Non Distended and Normal Bowel Sounds; No Organomegaly
Rectal: Deferred by Provider
Musculoskeletal: No Clubbing, No Cyanosis and No Edema
Skin: No Rash
Neuro: AO x 3 and Nonfocal/grossly intact
Psych: Calm
#Right flank pain
# Gross hematuria
#Right hydroureteronephrosis
� CT abdomen pelvis showing dense products, likely obstructive clot in the collecting system, right ureter
� Hematuria resolved
� Restarting anticoagulation, Eliquis�can stop if hematuria reoccurs
-Will need further workup that is better to do once any clots have dissolved if possible
-Scheduled for outpatient cystoscopy next Sunday 12/24
- CT Urogram for upper tract imaging in 1-2 weeks to allow blood clot to dissolve first
#?UTI v Pyelonephritis
-UA equivocal
� Status post Zosyn, will give 1 dose of fosfomycin prior to DC
Cultures unremarkable
-stranding may be related to blood clot formation causing retention
-F/U CBC outpt
#Chest Pressure
# hypertensive emergency
#Elevated Troponin - suspect non ischemic mycocardial injury
�Dynamic T wave changes, resolved on a.m. EKG
� Cardiology consulted
� Currently chest pain-free
� Follow-up echocardiogram: Echocardiogram: EF 65-70% with no wall motion abnormality, mild MS, moderate
-Cont diltiazem, toprol
-hydral prn
-Resume losartan at half home dose (50 mg daily)
#Chronic CAD
� Continue statin, beta-yoana
� No more aspirin, now on Eliquis
#Sick sinus syndrome status post [employer]tronic dual-chamber pacemaker, pacemaker in place
#Paroxysmal atrial fibrillation
� Ablation 2023
� Warfarin stopped, switched to Eliquis
#Mild diffuse gastric wall thickening
-can be seen with underdistention, however gastritis could appear similar.
-f/u gi outpt
-dc on ppi
#anemia of chronic disease
-ctm closely
-ensure hgb > 7
#chronic hyponatremia
-ctm
-fwr
�Follow BMP outpatient
#Aortic stenosis
# Hyperlipidemia.
-statin continued
#Non insulin-dependent diabetes
-Resume metformin
-sliding scale
-CHO diet
#Gastroesophageal reflux disease.
-PPI continued
#DVT prophylaxis
-Eliquis
#Hx of Amaurosis fugax
-stop ASA: cardiology aware of above diagnosis and now that on eliquis, agree to hold ASA with risk of bleeding
#CODE status
-full code
More than 30 minutes spent in discharge including
Final examination of the patient
Summarizing hospital stay
Instructions for continuing care to all relevant caregivers
Preparation of discharge records, prescriptions, and referral forms
Total time spent (36 in minutes):
Anticipated Discharge: Today
Subjective/Interval History
-
Date of Service: December 18, 2024
Hematuria resolved, no acute events overnight
Objective Data
-
Labs:
Laboratory Results
12/18/24
03:46
WBC 12.6 H
Hgb 10.4 L
Hct 30.3 L
Plt Count 384
PT 17.3 H
INR 1.39
Sodium 134 L
Potassium 3.5
Chloride 97 L
Carbon Dioxide 24
BUN 19 H
Creatinine 0.9
Glucose 132 H
Calcium 8.7
Vital Signs:
Vital Signs
Temp Pulse Resp BP Pulse Ox
97.6 F 78 19 126/64 94
12/18/24 11:22 12/18/24 11:13 12/18/24 11:13 12/18/24 11:13 12/18/24 10:45
I&O
12/17/24 12/18/24 12/19/24
06:59 06:59 06:59
Intake Total 480 / 480 630 / 630
Output Total 400 / 400
Balance 80 / 80 630 / 630
Review of Systems
-
History Source: Patient
All other systems: Not reviewed unless documented
Data Reviewed
-
CT Scan: Report Reviewed by me
Labs: Labs Reviewed by me
[2024-12-18 12:42] LABS: Glucose - Point of Care 150 mg/dl (70-99)
--- NOTE | 2024-12-18 12:43 | W.DS.TRANS ---
DC Summary - [employer]
-
Discharge Instructions:
Sleep Apnea Risk Low
Discharge Diagnosis/Procedures R hydronephrosis, dense products, likely
obstructive clot, in R collecting system
Hypertensive emergency
Type II MD, perhaps in setting of precipitous
drop in BP
Hematuria
Paroxysmal atrial fibrillation
Diet Low Cholesterol,Low Fat
Blood Work F/u CBC and BMP outpatient within the week to
ensure WBC is normalizing and Sodium levels are
stable
Instructions:
Stand-Alone Forms:
Changes to Home Medications: Yes
Discharge Medications:
DC Medications w/original date entered in [employer]
atorvastatin 20 mg tablet 20 mg PO HS 06/28/24
diltiazem HCl 120 mg capsule,extended release 24 hr 120 mg PO DAILY 06/28/24
diphenhydramine 25 mg-acetaminophen 500 mg tablet (Tylenol PM Extra Strength) 1 tab PO HS 06/28/24
metoprolol succinate 25 mg tablet,extended release 24 hr 25 mg PO HS 06/28/24
biotin 10,000 mcg capsule 10,000 mcg PO Q48H 08/28/24
fluticasone propionate 50 mcg/actuation nasal spray,suspension 1 spray intranasal DAILYPRN PRN congestion 12/16/24
metformin 500 mg tablet,extended release 24hr (osmotic) 500 mg PO BID 12/16/24
apixaban 5 mg tablet (Eliquis) 5 mg PO BID #60 tabs 12/18/24
losartan 50 mg tablet 50 mg PO DAILY 30 days #30 tabs 12/18/24
pantoprazole 40 mg tablet,delayed release 40 mg PO HS 30 days #30 tabs 12/18/24
Home Medication Changes
apixaban 5 mg tablet (Eliquis) 5 mg PO BID #60 tabs 12/18/24
losartan 50 mg tablet 50 mg PO DAILY 30 days #30 tabs 12/18/24
pantoprazole 40 mg tablet,delayed release 40 mg PO HS 30 days #30 tabs 12/18/24
Pending Results: No
[2024-12-18] MEDS: MONUROL 3 GM PO (13:06)
--- NOTE | 2024-12-18 13:35 | PN.CDI ---
CDI
- -
CDI:
Physician Documentation Request
Admit Date: 12/16/24 23:54
Dear Doctor Hanna,
Please review the following and provide your response in the progress notes.
Clinical Indicators:
Pt admitted with right flank pain, right hydroureteronephrosis, and hypertensive emergency.
12/17 Tack Puller: 'she developed chest discomfort/back pain with recurrent nausea, with EKG showing some slight ST segment downsloping in the inferolateral leads...Elevated troponin likely due to demand ischemia with type II RI (peaked at 0.396 on
12/17/2024).'
12/18 Cardiology: 'Type II RI, perhaps in setting of precipitous drop in BP'
12/18 Progress report: 'Elevated Troponin - suspect non ischemic myocardial injury'
Based on the above, please clarify in the progress notes the most appropriate diagnosis for your patient.
Type II RI
Non-ischemic myocardial injury
Other
Use of terms such as suspected, likely, concern for, or probable (associated with a specific diagnosis that is being evaluated, monitored, or treated as if it exists) are acceptable and can be coded in the inpatient setting, when documented at the
time of discharge.
Thank you,
Camilla Iqbal RN, BSN
CDI Specialist
[facility]
Please use your independent medical judgment in providing your response.
== END 2024-12-18 14:04 | disposition home or self-care (01) | DRG 690 ==
LOC: ICU 23:54
PROVIDERS: Registered Nurse; ADMITTING PHYSICIAN Hospitalist; ATTENDING PHYSICIAN Internal Medicine; CONSULT PHYSICIAN Internal Medicine Critical Care Medicine; CONSULT PHYSICIAN Urology; EMERGENCY PHYSICIAN Emergency Medicine; FAMILY PHYSICIAN Family Medicine; OTHER PHYSICIAN Student in an Organized Health Care Education/Training Program
DX: N13.6 Pyonephrosis (principal); I16.1 Hypertensive emergency; I5A Non-ischemic myocardial injury (non-traumatic); E87.1 Hypo-osmolality and hyponatremia; I50.32 Chronic diastolic (congestive) heart failure; I49.5 Sick sinus syndrome; Z95.0 Presence of cardiac pacemaker; I48.0 Paroxysmal atrial fibrillation; D63.8 Anemia in other chronic diseases classified elsewhere; I25.10 Atherosclerotic heart disease of native coronary artery without angina pectoris; E78.00 Pure hypercholesterolemia, unspecified; Z79.84 Long term (current) use of oral hypoglycemic drugs; K21.9 Gastro-esophageal reflux disease without esophagitis; R31.0 Gross hematuria; I11.0 Hypertensive heart disease with heart failure; I27.20 Pulmonary hypertension, unspecified; Z88.5 Allergy status to narcotic agent; Z91.040 Latex allergy status; Z91.041 Radiographic dye allergy status; E11.65 Type 2 diabetes mellitus with hyperglycemia; Z79.899 Other long term (current) drug therapy; Z79.01 Long term (current) use of anticoagulants; I08.0 Rheumatic disorders of both mitral and aortic valves; Z11.52 Encounter for screening for COVID-19; J45.40 Moderate persistent asthma, uncomplicated; Z80.0 Family history of malignant neoplasm of digestive organs; Z82.0 Family history of epilepsy and other diseases of the nervous system; Z82.49 Family history of ischemic heart disease and other diseases of the circulatory system; Z83.3 Family history of diabetes mellitus
CPT/HCPCS: 71275; 74174; 74176; 80048; 80053; 81003; 81015; 82962; 83036; 83615; 83690; 84484; 85025; 85027; 85610; 87086; 87502; 87811; 93005; 93306; 96365; 96375; 97162; 97166; 99285; Q9967

== ENCOUNTER → 2024-12-26 07:03 | Outpatient (REF) | payer MEDICARE, SELFPAY | LOC: RAD 07:03 | PROVIDERS: ATTENDING PHYSICIAN Urology; FAMILY PHYSICIAN Family Medicine | DX: R31.0 Gross hematuria (principal) | CPT/HCPCS: 74178; Q9967 ==

== ENCOUNTER → 2025-02-26 15:17 | Outpatient (REF) | payer OTHER, SELFPAY | LOC: RAD 15:17 | PROVIDERS: ATTENDING PHYSICIAN Surgery Vascular Surgery; FAMILY PHYSICIAN Family Medicine | DX: I65.23 Occlusion and stenosis of bilateral carotid arteries (principal) | CPT/HCPCS: 93880 ==

== ENCOUNTER → 2025-07-24 10:13 | Outpatient (REF) | payer OTHER, SELFPAY | LOC: HWRAD 10:13 | PROVIDERS: ATTENDING PHYSICIAN Family Medicine; REFERRING PHYSICIAN Internal Medicine Critical Care Medicine | DX: M25.561 Pain in right knee (principal); M25.562 Pain in left knee | CPT/HCPCS: 73564 ==

== ENCOUNTER 2025-09-10 08:08 | Inpatient (IN) | payer OTHER, SELFPAY ==
[2025-09-09] VITALS (9 sets, daily range): BP systolic 123–233; BP diastolic 66–103; BMI 30.7
--- NOTE | 2025-09-09 09:09 | ED.GENMED ---
History of Present Illness
<Cassy Cruz PA-C - Last Filed: 09/09/25 12:50>
General
Chief Complaint: Musculo-Skeletal Complaint
Time Seen by Provider: 09/09/25 09:00
History of Present Illness
History of Present Illness:
Mary is a 79F with PMH of b/l knee arthritis, HTN, AFib on Eliquis who presents with left knee pain that began yesterday. Denies any falls or trauma to the knee. Since the pain began she has noticed swelling in the knee. Denies fever, chills, or any
other associated symtoms. Has not been able to ambulate secondary to pain.
Past History
<Cassy Cruz PA-C - Last Filed: 09/09/25 12:50>
Past History
ED Past Medical History: Arrthythmia (Paroxysmal atrial fibrillation), HTN, Hypercholesterolemia and NIDDM
Social History
Tobacco: Non-smoker
Alcohol: None
Drug: None
Living: alone
Phy Exam
<Cassy Cruz PA-C - Last Filed: 09/09/25 12:50>
General Physical Exam
General Presentation: well appearing and no apparent distress
General Skin: warm and dry
General Habitus: normal
General Mental: alert
General Hydration: appears well hydrated
ENT Exam
ENT Exam: EOMI, pharynx normal, neck supple and normocephalic
Eye Exam
Eye Exam: PERRL, cornea clear and conjunctiva normal
Cardiovascular Exam
Cardiovascular Exam: regular rate/rhythm, no edema, no murmur and normal peripheral pulses
Pulmonary Exam
Pulmonary Exam: lungs clear, no respiratory distress, no rales, no crackles, no rhonchi, no stridor, no wheezing and no cough
Gastrointestinal Exam
Gastrointestinal Exam: normal bowel sounds, non tender, soft, no organomegaly, no pulsatile mass and non distended
Neurological Exam
Neurological Exam: alert, oriented x3, no motor deficits and speech normal
Musculoskeletal Exam
Musculoskeletal Exam: full ROM (unable to move need secondary to pain. Passive ROM intact. ), joint swelling (left knee) and other (no erythema or warmth over left knee)
Skin Exam
Skin Exam: normal color, warm/dry, no rash and no petechia
Psychiatric Exam
Psychiatric Exam: normal mood/affect
Course
<Cassy Cruz PA-C - Last Filed: 09/09/25 12:50>
Orders/Labs/Results
Orders:
Orders
09/09/25 09:06
CR Knee - Left 4 Or More View* Urgent
Comment:
Reason For Exam: knee pain
09/09/25 09:28
Acetaminophen [Tylenol] 1,000 mg PO NOW STA
09/09/25 11:17
0.9% Sodium Chloride 500 ml [Nss] 500 ml IV BOLUS
Ondansetron Injectable [Zofran] 4 mg IV NOW STA
09/09/25 12:16
Case Management Consult ONCE
Case Management Consult: Advanced Directive
Vital Signs
Initial and Last Documented VS:
Initial Vital Signs
Temp Pulse Resp BP Pulse Ox
36.8 C 72 20 225/78 100
09/09/25 08:51 09/09/25 08:51 09/09/25 08:51 09/09/25 08:51 09/09/25 08:51
Last Documented Vital Signs
Temp Pulse Resp BP Pulse Ox
36.8 C 80 20 181/99 99
09/09/25 08:51 09/09/25 10:30 09/09/25 08:51 09/09/25 10:23 09/09/25 11:30
Lindalt;Alexandru Santos DO - Last Filed: 09/09/25 11:48>
Orders/Labs/Results
Orders:
Orders
09/09/25 09:06
CR Knee - Left 4 Or More View* Urgent
Comment:
Reason For Exam: knee pain
09/09/25 09:28
Acetaminophen [Tylenol] 1,000 mg PO NOW STA
09/09/25 11:17
0.9% Sodium Chloride 500 ml [Nss] 500 ml IV BOLUS
Ondansetron Injectable [Zofran] 4 mg IV NOW STA
09/09/25 12:16
Case Management Consult ONCE
Case Management Consult: Advanced Directive
Vital Signs
Initial and Last Documented VS:
Initial Vital Signs
Temp Pulse Resp BP Pulse Ox
36.8 C 72 20 225/78 100
09/09/25 08:51 09/09/25 08:51 09/09/25 08:51 09/09/25 08:51 09/09/25 08:51
Last Documented Vital Signs
Temp Pulse Resp BP Pulse Ox
36.8 C 80 20 181/99 99
09/09/25 08:51 09/09/25 10:30 09/09/25 08:51 09/09/25 10:23 09/09/25 11:30
Procedures
Lindalt;Alexandru Santos DO - Last Filed: 09/09/25 11:48>
Incision/Drainage/Joint Aspiration
Left Knee:
Anethesia: 1% Lidocaine with Epi
Preparation: cleaned with Betadine
Type of procedure: aspiration
Nature of site: other (joint effusion)
How much fluid was obtained?: number in mls (30)
Fluid description: cloudy
Treatment: bandaid applied
<Cassy Cruz PA-C - Last Filed: 09/09/25 12:50>
MDM/Problems Addressed
Differential Diagnosis Includes:
Fracture, knee effusion/hemarthrosis, septic joint
Patient remains afebrile with no signs of infection on exam (non erythematous, no warmth, or skin changes). Left knee xray shows moderate to large knee effusion. Joint aspirated by Dr. Santos for 30cc bloody fluid - sent for cytology and culture.
Pain not improved post procedure. No also reporting nausea and chills. Zofran given.
Will admit to hospitalist for pain control and PT.
<Cassy Cruz PA-C - Last Filed: 09/09/25 12:50>
*Pulse Oximetry
SaO2: 100
Oxygen Mode of Delivery: Room air
Patient hypoxic: no
*Critical Care Note
Total Time (30-74mins, 75-104mins- exclusive of procedures): Not Applicable
ED Attending Note
<Cassy Cruz PA-C - Last Filed: 09/09/25 12:50>
-
Portions of this chart may have been created with voice recognition software.� Occasional wrong word or��sound alike� substitutions may have occurred due to the inherent limitations of voice recognition software.
<Alexandru Santos, - Last Filed: 09/09/25 11:48>
ED Attending Note
Patient seen and examined by attending physician: Yes
I performed the substantive portion of visit, reviewed & personally made and approve the management plan that is documented in note by myself or CHEKO.: Yes
ED Attending Note:
79-year-old female presents complaining of left knee pain. Patient has chronic knee pain for which she receives occasional injections. She states that over the past 24 hours she has had a sudden increase in pain and feels like the knee is swollen.
No fever or chills. She does take Eliquis. No specific trauma.
Left leg: No erythema or warmth noted. Diffusely tender to palpation. Pain with range of motion
Discharge Plan
Departure
Patient Disposition: Admit
Date of Disposition: 09/09/25
Time of Disposition: 12:47
Presentation/result/management discussed w/ accepting MD/DO: Hospitalist
Discharge Problem:
Hemarthrosis
Prescriptions:
No Action
diltiazem HCl 120 mg Capsule,Extended Release 24hr
120 mg PO DAILY
diphenhydramine-acetaminophen [Tylenol PM Extra Strength] 25-500 mg Tablet
1 tab PO HS
atorvastatin 20 MG tablet
20 mg PO HS
metoprolol succinate 25 MG tablet extended release 24 hr
25 mg PO HS
biotin 10,000 mcg Capsule
10,000 mcg PO Q48H
fluticasone propionate 50 mcg/actuation [place],Suspension
1 spray INTRANASAL DAILYPRN PRN (Reason: congestion)
metformin 500 mg Tablet Extended Release 24hr
500 mg PO BID
Eliquis 5 mg Tablet
5 mg PO BID Qty: 60 0RF
losartan 50 mg Tablet
50 mg PO DAILY 30 Days Qty: 30 0RF
pantoprazole 40 mg Tablet,Delayed Release (Dr/Ec)
40 mg PO HS 30 Days Qty: 30 0RF
Referrals:
Saravanan Carl Jr., DO [Family Provider, Internal Medicine]
Interventions
Interventions:
*Risk Screen - Suicide Last Done: 09/09/25 08:51
*General Assessment Last Done: 09/09/25 08:51
*Neglect/Abuse Screening Last Done: 09/09/25 08:51
*ED COVID-19 Vaccine History Last Done: 09/09/25 11:46
*ED Influenza Vaccine History Last Done: 09/09/25 11:46
ED-Musculoskeletal Assessment Last Done: 09/09/25 09:49
Discharge Date and Time
Print Language: BHUTANESE
[2025-09-09] MEDS: TYLENOL 1000 MG PO ×2 (09:44→22:41)
[2025-09-09] MEDS: NSS 500 IV (11:30)
[2025-09-09] MEDS: ZOFRAN 4 MG IV (11:31)
--- NOTE | 2025-09-09 12:42 | CM ---
Consult received. Chart reviewed
Spoke with patient and her dtr at ED bedside.
Patient is interested in advance directive.
Per dtr patient states that she had it done in the past but there was no record
Advance directive information and form provided to dtr and patient.
No questions at this time.
No other cm needs at this time.
--- NOTE | 2025-09-09 12:54 | HPS.HSE ---
Addendum entered and electronically signed by Shayy Peguero MD 09/09/25 14:35:
This is an addendum to the H&P written by Aleta Duran on 09/09/2025. �Patient seen and examined independently with PA.
79-year-old female past medical history of osteoarthritis, CAD, sick sinus syndrome status post pacemaker, aortic stenosis, paroxysmal atrial fibrillation on Eliquis status post ablation, anemia of chronic disease, chronic hyponatremia,
hyperlipidemia, diabetes, GERD, history of amaurosis fugax, presenting with acute onset left knee pain yesterday with increased swelling.
Fell on her knee 6 months ago in [place].�
She got knee injections bilaterally 6 weeks ago.
Vital signs show blood pressure 225/78.
Knee x-ray shows moderate to large left knee joint effusion. �Arthrocentesis with 30 cc of blood drained.
Patient with hemarthrosis of the left knee. �No recent trauma. �Check coags. �Will need to send aspiration for cell count, glucose, protein, crystals and Gram stain and culture. �Hold Eliquis for now. �Orthopedic consulted.
Blood pressure elevated due to pain and not taking BP meds today. Pain control.�
Original Note:
Family Physician
-
Family Physician: Saravanan Carl Jr.
Chief Complaint
-
Left Knee Pain
History of Present Illness
Patient is an 79 y/o female past medical history of atrial fibrillation on Eliquis, sick sinus syndrome s/p pacemaker, ASCVD, aortic stenosis, hypertension, hyperlipidemia, and diabetes mellitus who presents with acute onset of left knee pain.
Patient reports she pain started yesterday and has been worsening over the pas 24 hours. She reports increasing swelling of the left knee. Today she was unable to ambulate due to the pain prompting family to bring her to the emergency department
for evaluation. She notes she received bilateral knee injections about 6 weeks ago. She denies any fevers, sweats or chills.
Work-up in ED revealed moderate or large left knee joint effusion. ED provider performed arthrocentesis with removal of 30cc of fluid described as bloody in nature.
Medical History
Past Medical History
Past Medical History: Reports Other
Additional Past Medical History:
Paroxysmal Atrial Fibrillation
Sick Sinus Syndrome s/p Pacemaker
Aortic Stenosis
ASCVD
Essential Hypertension
Hyperlipidemia
Diabetes Mellitus, Type II
Pulmonary Hypertension
GERD
Past Surgical History: Reports Other
Additional Past Surgical History:
Right Reverse Total Shoulder Arthroplasty
Bilateral Bunionectomy
Carpal Tunnel Release
Sinus Surgery
Tonsillectomy
Cataract
Social History
Tobacco: Non-smoker
Alcohol: Occasional
Drug: None
Living: Alone
Family History
Family History: Not pertinent
Allergies / Home Medications
Allergies reflects when Allergies were last updated in [facility].
Home Medications with original date entered in [facility]
Allergy/Medication List:
Allergies
Allergy/AdvReac Type Severity Reaction Status Date / Time
cephalexin monohydrate (From Allergy Hives Verified 09/09/25 08:55
Keflex)
codeine Allergy Hives Verified 09/09/25 08:55
Iodinated Contrast Media Allergy Hives Verified 09/09/25 08:55
latex Allergy Itching Verified 09/09/25 08:55
Home Medications
atorvastatin 20 mg tablet 20 mg PO HS High Cholesterol 06/28/24
diltiazem HCl 120 mg capsule,extended release 24 hr 120 mg PO DAILY Blood Pressure 06/28/24
diphenhydramine 25 mg-acetaminophen 500 mg tablet (Tylenol PM Extra Strength) 1 tab PO HS Sleep 06/28/24
metoprolol succinate 25 mg tablet,extended release 24 hr 25 mg PO HS Blood Pressure 06/28/24
metformin 500 mg tablet,extended release 24hr (osmotic) 500 mg PO BID Diabetes 12/16/24
apixaban 5 mg tablet (Eliquis) 5 mg PO BID Blood Clot Prevention/Tx 09/09/25
losartan 50 mg tablet 50 mg PO DAILY Blood Pressure 09/09/25
pantoprazole 40 mg tablet,delayed release 40 mg PO HS Gastrointestinal Issue 09/09/25
semaglutide 0.25 mg or 0.5 mg (2 mg/3 mL) subcutaneous pen injector (Ozempic) 0.25 mg SC TU Diabetes 09/09/25
Review of Systems
-
A 12 point ROS was completed and negative except as noted: Yes
Constitutional: Denies Fever
Respiratory: Denies Cough or Trouble Breathing
Cardiac: Denies See HPI or Palpitations
Musculoskeletal: Reports See HPI
Physical Exam
Vital Signs
Vital Signs
Temp Pulse Resp BP Pulse Ox
98.2 F 80 20 181/99 99
09/09/25 08:51 09/09/25 10:30 09/09/25 08:51 09/09/25 10:23 09/09/25 11:30
Physical Exam
General: Comfortable and Conversant
HEENT: Anicteric and Moist mucous membranes
Respiratory: Clear and Non Labored Respirations
Cardiac: S1/S2, Regular Rhythm and Murmur
GI: Soft and Non Tender
Rectal: Deferred by Provider
Musculoskeletal: No Clubbing, No Cyanosis and Other (Left knee wrapped in OLEG following arthrocentesis performed in ED)
Laboratory Results
-
Laboratory Tests
09/09/25
13:16
WBC 17.0 H
Hgb 11.3 L
Hct 34.4 L
Plt Count 371
Sodium Pending
Potassium Pending
Chloride Pending
Carbon Dioxide Pending
BUN Pending
Creatinine Pending
Glucose Pending
Data Reviewed
-
Diagnostic Radiology: Report Reviewed by me
Old Records: Reviewed
Impression/Plan
-
Left Knee Hemarthrosis s/p Arthrocentesis in ED
-Consult Orthopedics
-Hold Eliquis
-Check joint fluid studies including cell count, culture, and crystals
-Continue Tylenol and Oxycodone prn for pain
Ambulatory Dysfunction
-Consult PT/OT
Essential Hypertension - BP uncontrolled
-Patient states she did not take her morning medications prior to arrival - Give doses of diltiazem and losartan now - Monitor blood pressure closely
-Continue diltiazem, losartan, and metoprolol
Paroxysmal Atrial Fibrillation
Sick Sinus Syndrome s/p Pacemaker
-Continue diltiazem and metoprolol
-Eliquis on hold due to hemarthrosis
Aortic Stenosis
-Monitor Daily Weights
ASCVD
-Patient is not on aspirin as outpatient
Hyperlipidemia
-Continue atorvastatin
Diabetes Mellitus, Type II
-Patient maintained on Ozempic as outpatient
-Hold metformin
-Monitor sugars and continue coverage insulin
GERD
-Continue Protonix
DVT proph: SCDs until able to resume Eliquis
Code Status: Full Code
[2025-09-09] MEDS: CARDIZEM 120 MG PO (13:17)
[2025-09-09] MEDS: COZAAR 50 MG PO (13:17)
[2025-09-09 13:30] LABS: Hematocrit 34.4 % (37.0-47.0); Hemoglobin 11.3 g/dL (12.0-16.0); Mean Corp Hgb Conc. 32.8 g/dL (33.0-37.0); Mean Corpuscular Volume 81.9 fL (81.0-99.0); Nucleated Red Blood Cells % 0 %; Platelet Count 371 10^3/uL (130-400); Red Cell Dist. Width 13.2 % (11.5-14.5)
[2025-09-09 13:42] LABS: INR 1.11; PT 14.6 Sec (11.4-14.6)
[2025-09-09 13:52] LABS: Blood Urea Nitrogen 9 mg/dl (7-17); Calcium 9.7 mg/dl (8.4-10.2); Carbon Dioxide 26 mmol/L (22-30); Chloride 93 mmol/L (98-107); Estimated Creatinine Clearance 63 ml/min; Glucose 143 mg/dl (70-99); Potassium 4.1 mmol/L (3.5-5.1); Sodium 128 mmol/L (135-145); eGFR > 60.00
--- NOTE | 2025-09-09 13:52 | CM ---
Chart reviewed and spoke wt patient at ED bedside
GRANDE reviewed and explained
Lives alone in a condo in [place] no LAURA
Dtr lives 9 min away and Nisminy works at [employer]
hx of knee pain has a walker and cane
Drives
DME walker and cane
PCP Dr. Saravanan Carl
[facility] in [place]
no hx of VN nor SNF
DCP is to go home
Dtr can provide transportation
Cm will continue to follow up for jimi dcp needs
[2025-09-09] MEDS: APRESOLINE 5 MG IV (15:24)
[2025-09-09 16:04] LABS: Body Fluid Second Tech DW
[2025-09-09 16:15] LABS: Glucose - Point of Care 156 mg/dl (70-99)
[2025-09-09] MEDS: TYLENOL 650 MG PO (16:29)
[2025-09-09] MEDS: NOVOLOG FLEXPEN-LOW RESISTANCE 1 UNITS SC (17:37)
--- NOTE | 2025-09-09 20:01 | W.PN.UPDATE ---
Update Note
Progress Note Update
Reviewed blood work and joint fluid analysis
WBC 17.0
Fluid WBC 15703
Fl Polymorph 91%
Patient currently with temp 99F
Given overall clinical picture will start empiric vancomycin and levofloxacin for possible septic arthritis pending joint fluid culture result
[2025-09-09] MEDS: LEVAQUIN 150 IV (20:19)
[2025-09-09 21:20] LABS: Glucose - Point of Care 152 mg/dl (70-99)
[2025-09-09] MEDS: LIPITOR 20 MG PO (21:30)
[2025-09-09] MEDS: PROTONIX 40 MG PO (21:30)
[2025-09-09] MEDS: TOPROL XL 25 MG PO (21:33)
[2025-09-09] MEDS: VANCOCIN 530 MG IV (21:50)
--- NOTE | 2025-09-09 21:58 | PHA.VAN.IN ---
Assessment
- Assessment
Renal Function: Appears similar to baseline
Concomitant Antimicrobials: LEVOFLOXACIN
AUC Dosing Plan
- Dosing Variables
Dosing Weight (kg): 69
Dosing CrCl (ml/min): 63
Vd coefficient (L/kg): 0.7
- Empiric Dosing
Initial / Loading Dose: VANCOMYCIN 1500 MG IV ~ 2200
Maintenance Regimen: VANCOMYCIN 1250 MG IV Q24H
Estimated AUC (mcg*h/mL): 476
Estimated Peak (mcg*h/mL): 34.8
Estimated Trough (mcg/ml): 9.7
Estimated Half Life (H): 12.2
- Monitoring
No levels ordered at this time: Please consider levels in next few days.
Pharmacokinetics Vancomycin I
- -
Patient Age: 79
Patient Sex: Female
Vancomycin Day #: 1
Indication: [facility]
Requesting Provider: Andrew Javier PA-C
Pertinent Antimicrobial Allergies:
Cephalexin w. hives.
Height / Weight:
Height 4 ft 11 in
Actual Weight 69 kg
Pertinent Past Medical History: Diabetes mellitus Pt. who presents with acute onset of left knee pain.
- Vital Signs / Lab Results
Temp Pulse Resp BP Pulse Ox
99.0 F 94 18 156/81 97
09/09/25 16:08 09/09/25 21:33 09/09/25 16:08 09/09/25 21:33 09/09/25 16:08
Lab Results - Hematology
09/09/25
13:16
WBC 17.0 H
Lab Results - Chemistry
09/09/25
13:16
BUN 9
Creatinine 0.5 L
Estimated Creat Clear 63
Microbiology Results
09/09/25 13:33 Gram Stain - Preliminary
Joint Fluid
[2025-09-09] MEDS: BENADRYL 25 MG PO (22:42)
[2025-09-10] VITALS (7 sets, daily range): BP systolic 145–212; BP diastolic 71–91; PULSE 80; O2SAT 99; BMI 30.6
--- NOTE | 2025-09-10 03:00 | DOWNTIME ---
There was a [employer] Client Application Assistant Downtime on 09/10/2025 from 0100 to 09/10/2025 at 0255. Downtime documentation of patient's care, including medication administrations, has been reconciled in the electronic record per guidelines. Refer to the
patient's paper chart under the miscellaneous tab to see printed paper medication records and downtime forms.
[2025-09-10 07:17] LABS: Hematocrit 32.7 % (37.0-47.0); Hemoglobin 10.5 g/dL (12.0-16.0); Mean Corp Hgb Conc. 32.1 g/dL (33.0-37.0); Mean Corpuscular Volume 83.4 fL (81.0-99.0); Platelet Count 328 10^3/uL (130-400); Red Cell Dist. Width 13.3 % (11.5-14.5)
[2025-09-10 07:39] LABS: Blood Urea Nitrogen 6 mg/dl (7-17); Calcium 9.4 mg/dl (8.4-10.2); Carbon Dioxide 26 mmol/L (22-30); Chloride 96 mmol/L (98-107); Estimated Creatinine Clearance 63 ml/min; Glucose 120 mg/dl (70-99); Potassium 3.7 mmol/L (3.5-5.1); Sodium 128 mmol/L (135-145); eGFR > 60.00
[2025-09-10 07:41] LABS: Glucose - Point of Care 133 mg/dl (70-99)
--- NOTE | 2025-09-10 07:45 | CON.ORTHO ---
Consultation
-
Date/Time Consultation Requested: 09/09/2025; time unknown
Date/Time Consultation Performed: 09/10/2025; 0700
Requesting Provider: unknown
Performing Provider: Ely Phillips PA-C for Dr. Lg Gonzalez
Reason for Consultation: Left knee pain and effusion
Consultation - Orthopedics
History
Ms. Kay is an 79 year old female with PMH of atrial fibrillation on Eliquis, sick sinus syndrome s/p pacemaker, ASCVD, aortic stenosis, hypertension, hyperlipidemia, and diabetes mellitus seen today for her left knee. She reports spontaneous
onset of severe pain and swelling in her left knee. She denies any falls or injuries. She does report a history of bilateral knee osteoarthritis, and received cortisone injections from her PCP about 6 weeks ago. She reports she was doing well until
this acute flare. She endorses pain generally about her knee. She endorses increased pain with weight bearing activities and any motion of the joint. 30 cc of blood were aspirated from her knee yesterday and sent for testing. She denies PMH of gout
or inflammatory arthropathies.
Allergies / Home Medications
Allergy/AdvReac Type Severity Reaction Status Date / Time
cephalexin monohydrate (From Allergy Hives Verified 09/09/25 08:55
Keflex)
codeine Allergy Hives Verified 09/09/25 08:55
Iodinated Contrast Media Allergy Hives Verified 09/09/25 08:55
latex Allergy Itching Verified 09/09/25 08:55
�Medication �Instructions �Recorded
atorvastatin 20 mg tablet 20 mg PO HS High Cholesterol 06/28/24
diltiazem HCl 120 mg 120 mg PO DAILY Arrhythmia 06/28/24
capsule,extended release 24 hr
diphenhydramine 25 1 tab PO HS Sleep 06/28/24
mg-acetaminophen 500 mg tablet
(Tylenol PM Extra Strength)
metoprolol succinate 25 mg 25 mg PO HS Blood Pressure 06/28/24
tablet,extended release 24 hr
metformin 500 mg tablet,extended 500 mg PO BID Diabetes 12/16/24
release 24hr (osmotic)
apixaban 5 mg tablet (Eliquis) 5 mg PO BID Blood Clot 09/09/25
Prevention/Tx
losartan 50 mg tablet 50 mg PO DAILY Blood Pressure 09/09/25
pantoprazole 40 mg tablet,delayed 40 mg PO HS Gastrointestinal Issue 09/09/25
release
semaglutide 0.25 mg or 0.5 mg (2 0.25 mg SC TU Diabetes 09/09/25
mg/3 mL) subcutaneous pen injector
(Ozempic)
Vital Signs / Lab Results
Temp Pulse Resp BP Pulse Ox
99.5 F 86 16 212/74 98
09/10/25 07:41 09/10/25 07:41 09/10/25 07:41 09/10/25 07:41 09/10/25 07:41
09/10/25 06:41
09/10/25 06:41
XR Left Knee FINDINGS: No acute fracture or malalignment is seen. No suspicious focal osseous lesions. There is spurring along the tibial spines. Small amount of marginal spurring along medial and lateral compartments. There is patellofemoral
narrowing with small amount of associated spurring. There is moderate to large knee joint effusion, new or significantly larger. There is prepatellar soft tissue swelling. No radiopaque foreign body. No clear osteochondral loose body along the joint
space.
Preliminary gram stain with many WBC, no organisms seen.
Positive for monosodium urate crystals.
Directed exam of the left lower extremity reveals effusion about the left knee. No significant erythema or ecchymosis. Tenderness to palpation generally about the knee. Patient unable to tolerate any motion of the knee secondary to pain. Calf soft
and nontender. Neurovascularly intact distally.
Assessment / Plan
Left knee pain and effusion
--Mary has experienced a flare of spontaneous severe left knee pain and swelling. Her cultures are pending, but the fluid aspirated from her knee was positive for monosodium urate crystals. Her physical exam is consistent with gout. I would
recommend initiating treatment for gout per primary. Could consider looping in rheumatology. I am not overly concerned for a septic joint infection at this time, but continue to follow cultures. No indication for orthopedic surgery intervention at
present. We will follow peripherally until cultures have resulted. Patient may be weight bearing as tolerated, and may perform gentle ROM as her symptoms allow. She may benefit from PT/OT and use of a gait aid while admitted.
[2025-09-10] MEDS: NOVOLOG FLEXPEN-LOW RESISTANCE SC ×3 (07:47→16:52)
[2025-09-10] MEDS: CARDIZEM CD 120 MG PO (07:48)
[2025-09-10] MEDS: COZAAR 50 MG PO (07:49)
[2025-09-10] MEDS: TYLENOL 1000 MG PO ×3 (07:50→21:11)
--- NOTE | 2025-09-10 08:02 | PHA.VAN.FU ---
Vancomycin Assessment / Plan
- Assessment
Renal Function: Stable
WBC's are: Trending Down
In the past 24 hrs, patient has been: Afebrile
Concomitant Antimicrobials: levofloxacin
- Dosing Plan
Continue: Vanc 1250mg Q24H
- Monitoring Plan
No level(s) ordered at this time: consider levels in next few days
- Follow Up
Pharmacy will continue to follow.
Vancomycin Follow UP
- -
Patient Age: 79
Patient Sex: Female
Vancomycin Day #: 2
Indication: Bone And Joint
Requesting Provider: Andrew Javier PA-C
Pertinent Antimicrobial Allergies:
cephalexin - hives
Height / Weight:
Height 4 ft 11 in
Actual Weight 68.606 kg
Pertinent Past Medical History: BMI ~30.5, DM II
- Vital Signs / Lab Results
Temp Pulse Resp BP Pulse Ox
99.5 F 94 16 158/85 98
09/10/25 07:41 09/10/25 07:49 09/10/25 07:41 09/10/25 07:49 09/10/25 07:41
Lab Results - Hematology
09/09/25 09/10/25
13:16 06:41
WBC 17.0 H 13.1 H
Lab Results - Chemistry
09/09/25 09/10/25
13:16 06:41
BUN 9 6 L
Creatinine 0.5 L 0.5 L
Estimated Creat Clear 63 63
Microbiology Results
09/09/25 13:33 Gram Stain - Preliminary
Joint Fluid
[2025-09-10] MEDS: COLCHICINE 1.2 MG PO (08:40)
[2025-09-10 08:46] LABS: Glycohemoglobin (HgbA1c) 6.2 % (4.0-5.9)
[2025-09-10] MEDS: VANCOCIN 275 MG IV (09:58)
[2025-09-10] MEDS: COLCHICINE 0.6 MG PO (11:53)
[2025-09-10 11:55] LABS: Glucose - Point of Care 109 mg/dl (70-99)
--- NOTE | 2025-09-10 12:54 | W.PN.HOSP.TC ---
Today's Communication/Plan
-
Assessment / Plan
Assessment / Plan
General: No Apparent Distress, Comfortable and Conversant
HEENT: NormoCephalic, Moist mucous membranes, Atraumatic
Respiratory: Clear and Non Labored Respirations
Cardiac: Regular rhythm, heart rate around 90
GI: Soft, Non Tender, Non Distended and Normal Bowel Sounds
Musculoskeletal: Left knee swelling, left knee TTP and restricted range of motion
Skin: Warm and dry
: NO Leon
Neuro: Awake, Alert, Nonfocal/grossly intact
Psych: Calm and cooperative
Ms. Kay is an 79-year-old female with a medical history of A-fib (on Eliquis), sick sinus syndrome (PPM), aortic stenosis, hypertension, hul-fnxnols-vqoebapyt diabetes mellitus, and osteoarthritis presented for evaluation of left knee pain and
swelling. The onset of her symptoms was fairly acute over the 24 hours prior to her presentation. She was ultimately unable to ambulate due to pain and restricted range of motion due to the swelling. She received bilateral knee injections
approximately 6 weeks ago. She underwent arthrocentesis of her left knee in the ED with removal of approximate 30 cc of bloody fluid. She was started on antibiotics. Cultures are negative so far. Fluid studies showed monosodium urate crystals.
She has been started on colchicine for treatment of gout.
Left knee inflammation:
- Suspect this is due to gout as fluid studies from joint aspiration include monosodium urate crystals
- Started on colchicine, will monitor for response
- Less likely that she has septic joint, however will continue empiric antibiotics for now, follow cultures which are sterile at this point
- Ambulate as tolerated with PT/OT
- Pain control
- Currently holding Eliquis due to hemarthrosis, can likely restart in the next 24 hours
- Orthopedic team following, guidance has been appreciated
Hypertension:
- Continue home losartan
A-fib:
- Currently rate controlled
- Continue beta-blockade with home metoprolol succinate 25 mg at night, calcium channel blockade with home diltiazem 120 mg p.o. daily
- Holding Eliquis for now due to hemarthrosis in the setting of suspected acute gout flare, likely able to restart the next 24 hours
NIDDM:
- Uses Ozempic and metformin at home
- Covering with sliding scale insulin for now while inpatient
- Hemoglobin A1c 6.2%
DVT prophylaxis: SCDs
CODE STATUS: Full code
Anticipated Discharge: 24 - 48 hours
Subjective/Interval History
-
Date of Service: September 10, 2025
Patient was seen and examined at bedside this morning. Continues to have significant pain and swelling in her left knee. Fluid studies from arthroscopy showing monosodium urate crystals. Started on treatment for gout.
Objective Data
-
Labs:
Laboratory Results
09/10/25
06:41
WBC 13.1 H
Hgb 10.5 L
Hct 32.7 L
Plt Count 328
Sodium 128 L
Potassium 3.7
Chloride 96 L
Carbon Dioxide 26
BUN 6 L
Creatinine 0.5 L
Glucose 120 H
Calcium 9.4
Vital Signs:
Vital Signs
Temp Pulse Resp BP Pulse Ox
98.7 F 94 16 158/85 98
09/10/25 12:18 09/10/25 07:49 09/10/25 07:41 09/10/25 07:49 09/10/25 07:41
I&O
09/09/25 09/10/25 09/11/25
06:59 06:59 06:59
Intake Total 1040 / 1040
Balance 1040 / 1040
Review of Systems
-
History Source: Patient
All other systems: Reviewed and negative
Musculoskeletal: Reports Joint Pain (Left knee pain and swelling) and Joint Swelling
Physical Exam
-
General: No Apparent Distress
--- NOTE | 2025-09-10 13:59 | CM ---
CM following re: discharge planning.
Reviewed pt's chart, met with pt and pt's daughter at bedside.
Per UR CM pt is upgraded to IP. IMM reviewed, placed on chart, pt has a copy.
PT and OT evaluations noted - SNF level of care recommended. both pt and her daughter are aware, expressed their agreement. A list of SNFs provided. Following SNFs preferred: [facility], [facility], [facility], [facility], [facility]. A referral to above SNFs made. Awaiting for determination.
D/c plan: preferred SNF when medically stable.
CM will follow to assist pt with discharge to a preferred SNF.
[2025-09-10] MEDS: APRESOLINE 5 MG IV (16:07)
[2025-09-10 16:51] LABS: Glucose - Point of Care 127 mg/dl (70-99)
[2025-09-10] MEDS: LEVAQUIN 150 IV (19:43)
[2025-09-10] MEDS: TOPROL XL 25 MG PO (21:11)
[2025-09-10] MEDS: PROTONIX 40 MG PO (21:16)
[2025-09-10] MEDS: LIPITOR 20 MG PO (21:16)
[2025-09-10] MEDS: ZOFRAN 4 MG IV (21:48)
[2025-09-10 21:59] LABS: Glucose - Point of Care 132 mg/dl (70-99)
--- NOTE | 2025-09-10 22:22 | PTCARENOTE ---
2124- Patient became nauseous and vomited after attempting to swallow Tylenol tablet. Patient states she splits larger pills in half. House MACHINE [employer] made aware, and one time dose of Zofran ordered and administered. Patient stated relief and was able to
take remaining medications.
[2025-09-11] MEDS: BENADRYL 25 MG PO ×2 (00:03→22:59)
[2025-09-11 06:00] VITALS: BMI 30.4
[2025-09-11] MEDS: VANCOCIN 275 MG IV (06:01)
[2025-09-11] MEDS: FLUSH (NSS) 2 FLUSH IV (06:01)
[2025-09-11 06:36] LABS: Hematocrit 29.7 % (37.0-47.0); Hemoglobin 9.8 g/dL (12.0-16.0); Mean Corp Hgb Conc. 33.0 g/dL (33.0-37.0); Mean Corpuscular Volume 80.7 fL (81.0-99.0); Nucleated Red Blood Cells % 0 %; Platelet Count 314 10^3/uL (130-400); Red Cell Dist. Width 13.3 % (11.5-14.5)
--- NOTE | 2025-09-11 06:52 | PTCARENOTE ---
VAT notified that IV leak while Vanco transfusing.
[2025-09-11 06:56] LABS: Blood Urea Nitrogen 9 mg/dl (7-17); Calcium 8.9 mg/dl (8.4-10.2); Carbon Dioxide 26 mmol/L (22-30); Chloride 99 mmol/L (98-107); Estimated Creatinine Clearance 63 ml/min; Glucose 119 mg/dl (70-99); Potassium 3.8 mmol/L (3.5-5.1); Sodium 127 mmol/L (135-145); eGFR > 60.00
[2025-09-11 08:12] VITALS: BP 173/79
[2025-09-11] MEDS: NOVOLOG FLEXPEN-LOW RESISTANCE SC ×3 (08:22→17:09)
[2025-09-11] MEDS: CARDIZEM CD 120 MG PO (08:26)
[2025-09-11] MEDS: COZAAR 50 MG PO (08:26)
[2025-09-11] MEDS: COLCHICINE 0.6 MG PO (08:33)
[2025-09-11 08:46] LABS: Glucose - Point of Care 123 mg/dl (70-99)
[2025-09-11] MEDS: TYLENOL 1000 MG PO ×2 (09:36→17:15)
[2025-09-11] MEDS: APRESOLINE 5 MG IV (09:52)
[2025-09-11 10:50] VITALS: BP 142/68
[2025-09-11 12:34] LABS: Glucose - Point of Care 109 mg/dl (70-99)
[2025-09-11 13:28] VITALS: BP 142/68
--- NOTE | 2025-09-11 14:16 | W.PN.HOSP.TC ---
Today's Communication/Plan
-
Assessment / Plan
Assessment / Plan
General: No Apparent Distress, Comfortable and Conversant
HEENT: NormoCephalic, Moist mucous membranes, Atraumatic
Respiratory: Clear and Non Labored Respirations
Cardiac: Regular rhythm, heart rate around 90
GI: Soft, Non Tender, Non Distended and Normal Bowel Sounds
Musculoskeletal: Improved left knee swelling and range of motion
Skin: Warm and dry
: NO Leon
Neuro: Awake, Alert, Nonfocal/grossly intact
Psych: Calm and cooperative
Ms. Kay is an 79-year-old female with a medical history of A-fib (on Eliquis), sick sinus syndrome (PPM), aortic stenosis, hypertension, kkd-badvsvi-fptiuvgza diabetes mellitus, and osteoarthritis presented for evaluation of left knee pain and
swelling. The onset of her symptoms was fairly acute over the 24 hours prior to her presentation. She was ultimately unable to ambulate due to pain and restricted range of motion due to the swelling. She received bilateral knee injections
approximately 6 weeks ago. She underwent arthrocentesis of her left knee in the ED with removal of approximate 30 cc of bloody fluid. She was started on antibiotics. Cultures are negative so far. Fluid studies showed monosodium urate crystals.
She has been started on colchicine for treatment of gout.
Left knee inflammation:
- Suspect this is due to gout as fluid studies from joint aspiration include monosodium urate crystals
- Started on colchicine with significant improvement, will continue daily dose of colchicine 0.6 mg until approximately 3 to 4 days following resolution of acute flare
- Less likely that she has septic joint, continuing empiric antibiotics for now, cultures remain sterile
- Tolerating PT/OT, recommending SNF
- Pain control
- Orthopedic team following, guidance has been appreciated
- Recommend rheumatology follow-up after discharge
Hypertension:
- Continue home losartan
A-fib:
- Currently rate controlled
- Continue beta-blockade with home metoprolol succinate 25 mg at night, calcium channel blockade with home diltiazem 120 mg p.o. daily
- Had been holding Eliquis due to hemarthrosis in the setting of suspected acute gout flare, will restart tonight 09/11, monitor H&H
NIDDM:
- Uses Ozempic and metformin at home
- Covering with sliding scale insulin for now while inpatient
- Hemoglobin A1c 6.2%
- Recommend following up with her PCP regarding ongoing diabetic regimen as she is experiencing significant GI symptoms with her home regimen
DVT prophylaxis: SCDs, restart Eliquis tonight 09/11
CODE STATUS: Full code
Anticipated Discharge: 24 - 48 hours
Subjective/Interval History
-
Date of Service: September 11, 2025
Patient was seen and examined at bedside this morning. Significant improvement in left knee pain and range of motion after starting colchicine yesterday.
Objective Data
-
Labs:
Laboratory Results
09/11/25
06:14
WBC 10.1
Hgb 9.8 L
Hct 29.7 L
Plt Count 314
Sodium 127 L
Potassium 3.8
Chloride 99
Carbon Dioxide 26
BUN 9
Creatinine 0.5 L
Glucose 119 H
Calcium 8.9
Vital Signs:
Vital Signs
Temp Pulse Resp BP Pulse Ox
97.8 F 85 18 142/68 100
09/11/25 08:12 09/11/25 09:52 09/11/25 08:12 09/11/25 10:50 09/11/25 08:12
I&O
09/10/25 09/11/25 09/12/25
06:59 06:59 06:59
Intake Total 1040 / 1040 1050 / 1050
Balance 1040 / 1040 1050 / 1050
Review of Systems
-
History Source: Patient
All other systems: Reviewed and negative
Musculoskeletal: Reports Joint Pain (Left knee pain and swelling)
Physical Exam
-
General: No Apparent Distress
--- NOTE | 2025-09-11 14:54 | PHA.VAN.FU ---
Vancomycin Assessment / Plan
- Assessment
Renal Function: Stable
WBC's are: WNL
In the past 24 hrs, patient has been: Afebrile
Concomitant Antimicrobials: levofloxacin
- Dosing Plan
Continue: Vanc 1250mg Q24H
- Monitoring Plan
No level(s) ordered at this time: consider levels in next few days
- Follow Up
Pharmacy will continue to follow.
Vancomycin Follow UP
- -
Patient Age: 79
Patient Sex: Female
Vancomycin Day #: 3
Indication: Bone And Joint
Requesting Provider: Andrew Javier PA-C
Pertinent Antimicrobial Allergies:
cephalexin - hives
Height / Weight:
Height 4 ft 11 in
Actual Weight 68.13 kg
Pertinent Past Medical History: BMI ~30.5, DM II
- Vital Signs / Lab Results
Temp Pulse Resp BP Pulse Ox
97.8 F 85 18 142/68 100
09/11/25 08:12 09/11/25 09:52 09/11/25 08:12 09/11/25 10:50 09/11/25 08:12
Lab Results - Hematology
09/09/25 09/10/25 09/11/25
13:16 06:41 06:14
WBC 17.0 H 13.1 H 10.1
Lab Results - Chemistry
09/09/25 09/10/25 09/11/25
13:16 06:41 06:14
BUN 9 6 L 9
Creatinine 0.5 L 0.5 L 0.5 L
Estimated Creat Clear 63 63 63
Microbiology Results
09/09/25 13:33 Body Fluid Culture - Preliminary
Joint Fluid No Growth After 48 Hours
Gram Stain - Preliminary
--- NOTE | 2025-09-11 15:06 | CM ---
CM following re: discharge planning.
Reviewed pt's chart, met with pt and pt's daughter at bedside.
PT and OT evaluations noted - home PT/OT recommended. Both pt and her daughter are aware, expressed their agreement and [facility] requested. A referral to [facility] made.
According to pt will be ready for discharge tomorrow. Pt's daughter stated that pt will go to her house at [address] [place] [id number].
IMM reviewed, placed on chart, pt has a copy.
D/c plan: home with [facility] and family support. Daughter to transport.
[2025-09-11 15:53] VITALS: BP 157/69
[2025-09-11 17:21] LABS: Glucose - Point of Care 114 mg/dl (70-99)
[2025-09-11] MEDS: LEVAQUIN 150 IV (20:11)
[2025-09-11] MEDS: ELIQUIS 5 MG PO (20:12)
[2025-09-11 22:25] LABS: Glucose - Point of Care 106 mg/dl (70-99)
[2025-09-11] MEDS: PROTONIX 40 MG PO (22:38)
[2025-09-11] MEDS: LIPITOR 20 MG PO (22:38)
[2025-09-11] MEDS: TOPROL XL 25 MG PO (22:38)
[2025-09-11] MEDS: TYLENOL 500 MG PO (22:59)
[2025-09-11 23:18] VITALS: BP 151/93
[2025-09-12] MEDS: VANCOCIN 275 MG IV (05:28)
[2025-09-12 06:00] VITALS: BMI 30.5
[2025-09-12 07:12] LABS: Hematocrit 28.7 % (37.0-47.0); Hemoglobin 9.5 g/dL (12.0-16.0); Mean Corp Hgb Conc. 33.1 g/dL (33.0-37.0); Mean Corpuscular Volume 83.4 fL (81.0-99.0); Nucleated Red Blood Cells % 0 %; Platelet Count 347 10^3/uL (130-400); Red Cell Dist. Width 13.4 % (11.5-14.5)
[2025-09-12 07:42] VITALS: BP 191/76
[2025-09-12] MEDS: COZAAR 50 MG PO (07:42)
[2025-09-12] MEDS: CARDIZEM CD 120 MG PO (07:43)
[2025-09-12] MEDS: COLCHICINE 0.6 MG PO (07:43)
[2025-09-12] MEDS: ELIQUIS 5 MG PO (07:43)
[2025-09-12] MEDS: NOVOLOG FLEXPEN-LOW RESISTANCE SC ×2 (07:47→12:43)
[2025-09-12 07:48] LABS: Glucose - Point of Care 129 mg/dl (70-99)
[2025-09-12 07:53] LABS: Blood Urea Nitrogen 8 mg/dl (7-17); Calcium 8.8 mg/dl (8.4-10.2); Carbon Dioxide 26 mmol/L (22-30); Chloride 101 mmol/L (98-107); Estimated Creatinine Clearance 63 ml/min; Glucose 105 mg/dl (70-99); Potassium 3.8 mmol/L (3.5-5.1); Sodium 131 mmol/L (135-145); eGFR > 60.00
--- NOTE | 2025-09-12 09:26 | W.PN.UPDATE ---
Update Note
Progress Note Update
Patient seen this morning and she relates that her left knee pain has improved dramatically since starting colchicine. She seems to be getting around well. She is afebrile. Cultures remain negative. Left knee small effusion. No warmth or
erythema. Range of motion 0 to 100 degrees without pain. Calf is soft and nontender. Distal neurovascular was intact. Follow-up with PCP to discuss long-term treatment for for gout suppression. Orthopedics to sign off.
[2025-09-12 10:20] VITALS: BP 184/70
[2025-09-12] MEDS: APRESOLINE 5 MG IV (10:42)
--- NOTE | 2025-09-12 10:56 | CM ---
indicated discharged.
Referral for [facility] entered in care port again.
Vera Foy aware of referral . Visit at [facility] [address], [place] [id number].
[facility] to transport.
[facility] fax [phone]
--- NOTE | 2025-09-12 11:27 | W.DCSUMMARY ---
Discharge Summary
Discharge Data
Date of Admission: 09/10/25
Date of Discharge: 09/12/25
Total time spent discharging patient (in min): 48
-
Pending Results: No
Hospital Course
Ms. Kay is an 79-year-old female with a medical history of A-fib (on Eliquis), sick sinus syndrome (PPM), aortic stenosis, hypertension, wyw-podswct-zojtgdzjj diabetes mellitus, and osteoarthritis presented for evaluation of left knee pain and
swelling. The onset of her symptoms was fairly acute over the 24 hours prior to her presentation. She was ultimately unable to ambulate due to pain and restricted range of motion due to the swelling. She received bilateral knee injections
approximately 6 weeks ago. She underwent arthrocentesis of her left knee in the ED with removal of approximate 30 cc of bloody fluid. She was started on antibiotics. Cultures have remained sterile. Fluid studies showed monosodium urate crystals.
She has been started on colchicine for treatment of gout. She was also started on IV antibiotics for possible superimposed septic arthritis although this is less likely.
Her symptoms dramatically improved with colchicine for treatment of gout. She will be continued on colchicine until her knee pain resolves, and should continue it for approximate 3 days after resolution of her pain before discontinuing. She will
need to follow-up with the matrix worker for ongoing evaluation and management of her gout. Her Eliquis was initially held due to bloody synovial fluid. However her Eliquis was eventually restarted. She will need repeat blood work in the
outpatient setting to monitor her hemoglobin level. She will be given a prescription for empiric antibiotics to continue after discharge to complete a 10-day total course. Her blood pressure was occasionally elevated during this hospitalization
despite continuing her home antihypertensive regimen. She was instructed to continue monitoring her blood pressure at home and follow-up with her primary care physician for medication changes as needed. Her blood glucose was well-controlled during
this admission without continuing her home metformin. Her hemoglobin A1c was 6.2%. She should continue monitoring her blood sugars closely and follow-up with her primary care physician for ongoing diabetic management. She had a mild hyponatremia
during this admission which was stable and appears chronic based on records. This can be monitored in the outpatient setting. Her initial leukocytosis resolved. She remained afebrile. She was medically stable for discharge to home with family.
General: No Apparent Distress, Comfortable and Conversant
HEENT: NormoCephalic, Moist mucous membranes, Atraumatic
Respiratory: Clear and Non Labored Respirations
Cardiac: Regular rhythm, heart rate around 90
GI: Soft, Non Tender, Non Distended and Normal Bowel Sounds
Musculoskeletal: Improved left knee swelling and range of motion
Skin: Warm and dry
: NO Leon
Neuro: Awake, Alert, Nonfocal/grossly intact
Psych: Calm and cooperative
Discharge Plan
-
Patient Disposition: Home with Home Care
Discharge Diagnosis/Procedures: Gout flare left knee
Activity Restrictions/Additional Instructions:
You were admitted for treatment of a painful left knee. You had fluid drained from your knee which showed monosodium urate crystals which means your knee pain and inflammation is due to gout. You were evaluated by the orthopedist who did not feel
that your knee appeared infected based on interpretation of the joint fluid results. However you were started on a course of antibiotics while in the hospital and will be discharged with a prescription for ongoing oral antibiotics to complete a
10-day course. You were also started on a medication called colchicine for treatment of gout with significant improvement in your knee pain and swelling. You will be given a prescription for colchicine which you will continue until your knee pain
has resolved and should continue taking colchicine for an additional 3 days after the resolution of your knee pain. You will need to follow-up with a matrix worker, which is a joint disease specialist, for further evaluation and recommendations.
Your Eliquis was initially held due to some blood in your knee joint fluid. However this is normal with a gout flare. Your Eliquis was eventually restarted. You will need repeat lab work in 3 to 4 days to monitor your hemoglobin levels to make
sure they remain stable. Your blood pressure was occasionally high during your hospitalization despite taking all of your regular home medications. It is important to continue monitoring your blood pressure and follow-up with your primary care
physician about potential adjustments to your medication regimen. Your blood sugar was well-controlled during this hospitalization without the use of your home metformin. You should continue to monitor your blood sugars closely and follow-up with
your primary care physician regarding adjustments as needed to your diabetic regimen.
Referrals:
Syed Redd DO [Consulting Staff, Rheumatology]
Referral Note: gout, left knee
Saravanan Carl Jr., DO [Family Provider, Internal Medicine]
Prescriptions:
New
colchicine 0.6 mg Tablet
0.6 mg PO DAILY Qty: 30 0RF
doxycycline hyclate 100 mg capsule
100 mg PO BID 7 Days Qty: 14 0RF
levofloxacin 750 mg tablet
750 mg PO DAILY 7 Days Qty: 7 0RF
Continued
diltiazem HCl 120 mg Capsule,Extended Release 24hr
120 mg PO DAILY
diphenhydramine-acetaminophen [Tylenol PM Extra Strength] 25-500 mg Tablet
1 tab PO HS
atorvastatin 20 MG tablet
20 mg PO HS
metoprolol succinate 25 MG tablet extended release 24 hr
25 mg PO HS
losartan 50 mg tablet
50 mg PO DAILY
pantoprazole 40 mg tablet,delayed release (DR/EC)
40 mg PO HS
Eliquis 5 mg tablet
5 mg PO BID
Held
metformin 500 mg Tablet Extended Release 24hr
500 mg PO BID
Hold Instructions: Follow-up with your primary care physician regarding reported GI symptoms associated with your diabetic medications and to make adjustments as needed
Ozempic 0.25 mg or 0.5 mg (2 mg/3 mL) Pen Injector
0.25 mg SC TU
Hold Instructions: Follow-up with your primary care physician regarding reported GI symptoms associated with your diabetic medications and to make adjustments as needed
Rx Instructions:
for 4 weeks
Discharge Orders:
Discharge Patient (As Directed); Ordered 09/12/25
Ordered By: Mukesh Haider
Discharge Date and Time
Print Language: MACEDONIAN
[2025-09-12 12:42] LABS: Glucose - Point of Care 106 mg/dl (70-99)
[2025-09-12 13:26] VITALS: BP 153/60
== END 2025-09-12 14:09 | disposition home health service (06) | DRG 554 ==
LOC: 2 NORTH 08:08
PROVIDERS: Physician Assistant Medical; ADMITTING PHYSICIAN Hospitalist; ATTENDING PHYSICIAN Internal Medicine; CONSULT PHYSICIAN Orthopaedic Surgery; EMERGENCY PHYSICIAN Emergency Medicine; FAMILY PHYSICIAN Family Medicine
PROC: 0S9D3ZX Drainage of Left Knee Joint, Percutaneous Approach, Diagnostic (ICD-10-PCS; 2025-09-09)
DX: M1A.0620 Idiopathic chronic gout, left knee, without tophus (tophi) (principal); M25.062 Hemarthrosis, left knee; E87.1 Hypo-osmolality and hyponatremia; I25.10 Atherosclerotic heart disease of native coronary artery without angina pectoris; I49.5 Sick sinus syndrome; Z95.0 Presence of cardiac pacemaker; K21.9 Gastro-esophageal reflux disease without esophagitis; E78.00 Pure hypercholesterolemia, unspecified; E11.9 Type 2 diabetes mellitus without complications; I48.0 Paroxysmal atrial fibrillation; Z96.611 Presence of right artificial shoulder joint; I27.20 Pulmonary hypertension, unspecified; I10 Essential (primary) hypertension; Z88.5 Allergy status to narcotic agent; Z91.040 Latex allergy status; Z91.041 Radiographic dye allergy status; Z79.01 Long term (current) use of anticoagulants; Z79.84 Long term (current) use of oral hypoglycemic drugs; Z79.85 Long-term (current) use of injectable non-insulin antidiabetic drugs; Z79.899 Other long term (current) drug therapy; M17.0 Bilateral primary osteoarthritis of knee; D63.8 Anemia in other chronic diseases classified elsewhere; D72.829 Elevated white blood cell count, unspecified; G89.29 Other chronic pain
CPT/HCPCS: 20610; 73564; 80048; 82945; 82962; 83036; 84157; 84439; 84443; 85025; 85027; 85610; 87015; 87070; 87205; 89051; 89060; 93005; 96361; 96374; 97116; 97163; 97167; 99285

== ENCOUNTER 2025-09-17 02:28 | Inpatient (IN) | payer OTHER, SELFPAY ==
[2025-09-16 20:46] VITALS: BP 138/85
[2025-09-16 21:03] LABS: Hematocrit 29.9 % (37.0-47.0); Hemoglobin 10.0 g/dL (12.0-16.0); Mean Corp Hgb Conc. 33.4 g/dL (33.0-37.0); Mean Corpuscular Volume 81.3 fL (81.0-99.0); Nucleated Red Blood Cells % 0 %; Platelet Count 403 10^3/uL (130-400); Red Cell Dist. Width 13.5 % (11.5-14.5)
[2025-09-16 21:28] LABS: ALT (SGPT) 23 U/L (0-35); AST (SGOT) 22 U/L (14-36); Albumin 4.0 g/dl (3.5-5.0); Alkaline Phosphatase 125 U/L (38-126); Blood Urea Nitrogen 12 mg/dl (7-17); Calcium 9.5 mg/dl (8.4-10.2); Carbon Dioxide 25 mmol/L (22-30); Chloride 98 mmol/L (98-107); Glucose 182 mg/dl (70-99); Potassium 4.0 mmol/L (3.5-5.1); Sodium 130 mmol/L (135-145); Total Protein 6.7 g/dl (6.3-8.2); eGFR > 60.00
[2025-09-16 22:54] VITALS: BP 192/83
[2025-09-16 23:00] VITALS: BP 189/94
--- NOTE | 2025-09-16 23:12 | ED.GENMED ---
History of Present Illness
<Vanessa Rivas PA-C - Last Filed: 09/17/25 04:25>
General
Chief Complaint: Extremity Pain (non-traumatic)
Source: patient
Exam Limitations: none
Time Seen by Provider: 09/16/25 23:09
Nursing documentation reviewed up to this point in time: agreed with
History of Present Illness
History of Present Illness:
80 y/o female with pmh of afib on eliquis, htn, hlp, GERD, diabetes, presents to the ER today with concerns of left knee pain and swelling for the past week. Of note, she was recently discharged from the hospital for intractable knee pain and
swelling. Arthrocentesis performed which was negative for bacterial growth but did show monosodium urate crystals. Eliquis was held as there was a lot of blood in the fluid but she has since been back on it. She was started on IV abx for possible
superimposed septic arthritis. She was taking colicine and feeling better but than this evening, developed severe pain again, left knee swelling, chills, nausea, despite being on the colchicine. She is already on doxy and levaquin orally. No fever
now but felt chills earlier. She did do PT the past few days which caused her pain. She reports that this evening, the swelling came back and pain is worse despite taking the colchicine. She took 2 colchicine tablets earlier this morning. She
also took Tylenol without relief.
Past History
<Vanessa Rivas PA-C - Last Filed: 09/17/25 04:25>
Past History
ED Past Medical History: Arrthythmia (Paroxysmal atrial fibrillation), HTN, Hypercholesterolemia and NIDDM
Social History
Tobacco: Non-smoker
Alcohol: None
Drug: None
Living: alone
Review of Systems
<Vanessa Rivas PA-C - Last Filed: 09/17/25 04:25>
Review of Systems
All Other Systems: ROS reviewed and negative except as documented in HPI and ROS
Phy Exam
<Vanessa Rivas PA-C - Last Filed: 09/17/25 04:25>
Physical Exam
Physical Exam:
General: Patient is well appearing and in no acute distress; non-toxic
Skin: Warm and dry, no erythema
Head: Normocephalic, atraumatic
Eyes: Sclera non-icteric. EOMs intact.
Cardiac: Regular rate
Peripheral Vascular: 2+ DP and PT pulses bilaterally
Pulm: Normal respiratory effort, no wheezes, rales, or rhonchi
Abdomen: No abdominal tenderness to palpation
Musculoskeletal: Left lower extremity suprapatellar swelling with tenderness to palpation, limited range of motion secondary to pain
Neuro: CN II-XII intact, no focal neurologic deficits.
Psychiatric: Appropriate mood and affect.
Course
<Vanessa Rivas PA-C - Last Filed: 09/17/25 04:25>
Orders/Labs/Results
Orders:
Orders
09/16/25 20:45
Knee, Left 4 or More Views [CR Knee - Left 4 Or More View*] Urgent
Comment:
Reason For Exam: pain/swelling
09/16/25 20:56
CBC/With Diff [Complete Blood Count/With Diff] Urgent
CMP [Comprehensive Metabolic Panel] Urgent
09/17/25 00:18
Acetaminophen [Tylenol] 500 mg PO NOW STA
09/17/25 00:34
MethylPREDNISolone PF [Solu-Medrol Pf] 20 mg IV NOW STA
09/17/25 02:16
Admit/Transfer Patient As Directed
Co-Sign Provider:
Level of Care: Inpatient admission
Assign to:: Medical/Surgical
Physician / Group: Shahram
Diagnosis: Left knee gout flair
Reason for Hospitalization: Left knee gout flair
Expected length of stay greater than two midnights?: Yes
ELOS- Estimated Length of Stay in days: 2
I certify the patient meets the requirements for IP care: Yes
PRN Pain Medication Management As Directed
May give lesser potent ordered pain med per pt: Yes
preference::
Protocol:: Medication orders for pain may be administered in a
manner that supports deferring to patient preference
when the pt is:
- Requesting an ordered lesser potent pain medication.
Least to most potent pain medications are defined
as: acetaminophen < NSAID < tramadol < opioids
(morphine, oxycodone, hydromorphone).
- Requesting a lesser dose of the same medication IF
ORDERED.
- Requesting a less intrusive route of administration
if both routes are prescribed by the provider (PO <
IV).
09/17/25 02:20
Code Status As Directed
Resuscitation Status: Full Code
09/17/25 Breakfast
1800 calorie (15 carb) Diabetic
At Your Request: Limited Participation
09/17/25 06:37
Bisacodyl [Dulcolax] 10 mg RECTAL [id number] PRN
Dextrose 50%-Water [Dextrose 50% Syringe] 12.5 grams IV [id number] PRN
Docusate W/Senna [Senokot-S] 1 tablet PO BIDPRN PRN
Glucagon [GlucaGen] 1 mg IM PRN PRN
Ondansetron Injectable [Zofran] 4 mg IV Q6HPRN PRN
Oxycodone [Roxicodone] 5 mg PO Q4HPRN PRN
Polyethylene Glycol Powder [Miralax] 17 grams PO DAILYPRN PRN
09/17/25 06:37
Rheumatology Consult Routine
Consulting Provider: Dyana Guadalupe
Was physician already notified: Yes
Reason for Consult: Left knee gout exacerbation
VTE Contraindication Routine
VTE Mechanical Device Contraindication: Medical Contraindication
Pharmocologic Contraindication: Medical Contraindication
Activity As Directed
Activity Level: With Assistance
Bedside Glucose Monitoring As Directed
Frequency: AC&HS
Additional Instructions:: Change to q6h if pt on TPN, tube feeding or not eating
Vital Signs As Directed
Frequency: Per unit guidelines
Pulse Ox/spot Check [RESP] Routine
Quantity: 1
09/17/25 07:20
HYDROmorphone [Dilaudid] 0.25 mg IV Q4HPRN PRN
09/17/25 07:30
Insulin Aspart Corrective Low [Novolog Flexpen-Low Resistance] See Protocol SC AC
09/17/25 08:00
Acetaminophen [Tylenol] 650 mg PO Q4HWA
Apixaban [Eliquis] 5 mg PO BID
Diltiazem Extended Release [Cardizem Cd] 120 mg PO DAILY
Doxycycline [Vibramycin] 100 mg PO BID
LevoFLOXacin [Levaquin] 750 mg PO DAILY
Losartan [Cozaar] 50 mg PO DAILY
MethylPREDNISolone PF [Solu-Medrol Pf] 20 mg IV Q12
09/17/25 22:00
Atorvastatin [Lipitor] 20 mg PO HS
Metoprolol Xl [Toprol Xl] 25 mg PO HS
Pantoprazole [Protonix] 40 mg PO HS
09/18/25 06:00
Basic Metabolic Panel IN AM
Complete Blood Count/No Diff IN AM
Glycohemoglobin (HgbA1c) IN AM
Abnormal Lab Results
09/16/25
20:56
WBC 15.9 H 10^3/uL
(4.8-10.8)
RBC 3.68 L 10^6/uL
(4.20-5.40)
Hgb 10.0 L g/dL
(12.0-16.0)
Hct 29.9 L %
(37.0-47.0)
Plt Count 403 H 10^3/uL
(130-400)
Abs Immat Gran (auto) 0.1 H 10^3/uL
(0-0.05)
Absolute Neuts (auto) 13.3 H 10^3/uL
(1.4-6.5)
Absolute Monos (auto) 1.0 H 10^3/uL
(0.1-0.6)
Neutrophils % 83.2 H %
(42.2-75.2)
Lymphocytes % 8.7 L %
(20.5-51.1)
Sodium 130 L mmol/L
(135-145)
Glucose 182 H mg/dl
(70-99)
09/16/25 20:56
09/16/25 20:56
Vital Signs
Initial and Last Documented VS:
Initial Vital Signs
Temp Pulse Resp BP Pulse Ox
98.2 F 80 14 138/85 98
09/16/25 20:46 09/16/25 20:46 09/16/25 20:46 09/16/25 20:46 09/16/25 20:46
Last Documented Vital Signs
Temp Pulse Resp BP Pulse Ox
97.9 F 84 16 155/85 99
09/17/25 15:00 09/17/25 15:00 09/17/25 15:00 09/17/25 15:00 09/17/25 15:00
<Robbie Allred MD - Last Filed: 09/17/25 19:53>
Orders/Labs/Results
Orders:
Orders
09/16/25 20:45
Knee, Left 4 or More Views [CR Knee - Left 4 Or More View*] Urgent
Comment:
Reason For Exam: pain/swelling
09/16/25 20:56
CBC/With Diff [Complete Blood Count/With Diff] Urgent
CMP [Comprehensive Metabolic Panel] Urgent
09/17/25 00:18
Acetaminophen [Tylenol] 500 mg PO NOW STA
09/17/25 00:34
MethylPREDNISolone PF [Solu-Medrol Pf] 20 mg IV NOW STA
09/17/25 02:16
Admit/Transfer Patient As Directed
Co-Sign Provider:
Level of Care: Inpatient admission
Assign to:: Medical/Surgical
Physician / Group: Shahram
Diagnosis: Left knee gout flair
Reason for Hospitalization: Left knee gout flair
Expected length of stay greater than two midnights?: Yes
ELOS- Estimated Length of Stay in days: 2
I certify the patient meets the requirements for IP care: Yes
PRN Pain Medication Management As Directed
May give lesser potent ordered pain med per pt: Yes
preference::
Protocol:: Medication orders for pain may be administered in a
manner that supports deferring to patient preference
when the pt is:
- Requesting an ordered lesser potent pain medication.
Least to most potent pain medications are defined
as: acetaminophen < NSAID < tramadol < opioids
(morphine, oxycodone, hydromorphone).
- Requesting a lesser dose of the same medication IF
ORDERED.
- Requesting a less intrusive route of administration
if both routes are prescribed by the provider (PO <
IV).
09/17/25 02:20
Code Status As Directed
Resuscitation Status: Full Code
09/17/25 Breakfast
1800 calorie (15 carb) Diabetic
At Your Request: Limited Participation
09/17/25 06:37
Bisacodyl [Dulcolax] 10 mg RECTAL [id number] PRN
Dextrose 50%-Water [Dextrose 50% Syringe] 12.5 grams IV [id number] PRN
Docusate W/Senna [Senokot-S] 1 tablet PO BIDPRN PRN
Glucagon [GlucaGen] 1 mg IM PRN PRN
Ondansetron Injectable [Zofran] 4 mg IV Q6HPRN PRN
Oxycodone [Roxicodone] 5 mg PO Q4HPRN PRN
Polyethylene Glycol Powder [Miralax] 17 grams PO DAILYPRN PRN
09/17/25 06:37
Rheumatology Consult Routine
Consulting Provider: Dyana Guadalupe
Was physician already notified: Yes
Reason for Consult: Left knee gout exacerbation
VTE Contraindication Routine
VTE Mechanical Device Contraindication: Medical Contraindication
Pharmocologic Contraindication: Medical Contraindication
Activity As Directed
Activity Level: With Assistance
Bedside Glucose Monitoring As Directed
Frequency: AC&HS
Additional Instructions:: Change to q6h if pt on TPN, tube feeding or not eating
Vital Signs As Directed
Frequency: Per unit guidelines
Pulse Ox/spot Check [RESP] Routine
Quantity: 1
09/17/25 07:20
HYDROmorphone [Dilaudid] 0.25 mg IV Q4HPRN PRN
09/17/25 07:30
Insulin Aspart Corrective Low [Novolog Flexpen-Low Resistance] See Protocol SC AC
09/17/25 08:00
Acetaminophen [Tylenol] 650 mg PO Q4HWA
Apixaban [Eliquis] 5 mg PO BID
Diltiazem Extended Release [Cardizem Cd] 120 mg PO DAILY
Doxycycline [Vibramycin] 100 mg PO BID
LevoFLOXacin [Levaquin] 750 mg PO DAILY
Losartan [Cozaar] 50 mg PO DAILY
MethylPREDNISolone PF [Solu-Medrol Pf] 20 mg IV Q12
09/17/25 22:00
Atorvastatin [Lipitor] 20 mg PO HS
Metoprolol Xl [Toprol Xl] 25 mg PO HS
Pantoprazole [Protonix] 40 mg PO HS
09/18/25 06:00
Basic Metabolic Panel IN AM
Complete Blood Count/No Diff IN AM
Glycohemoglobin (HgbA1c) IN AM
Abnormal Lab Results
09/16/25
20:56
WBC 15.9 H 10^3/uL
(4.8-10.8)
RBC 3.68 L 10^6/uL
(4.20-5.40)
Hgb 10.0 L g/dL
(12.0-16.0)
Hct 29.9 L %
(37.0-47.0)
Plt Count 403 H 10^3/uL
(130-400)
Abs Immat Gran (auto) 0.1 H 10^3/uL
(0-0.05)
Absolute Neuts (auto) 13.3 H 10^3/uL
(1.4-6.5)
Absolute Monos (auto) 1.0 H 10^3/uL
(0.1-0.6)
Neutrophils % 83.2 H %
(42.2-75.2)
Lymphocytes % 8.7 L %
(20.5-51.1)
Sodium 130 L mmol/L
(135-145)
Glucose 182 H mg/dl
(70-99)
09/16/25 20:56
09/16/25 20:56
Vital Signs
Initial and Last Documented VS:
Initial Vital Signs
Temp Pulse Resp BP Pulse Ox
98.2 F 80 14 138/85 98
09/16/25 20:46 09/16/25 20:46 09/16/25 20:46 09/16/25 20:46 09/16/25 20:46
Last Documented Vital Signs
Temp Pulse Resp BP Pulse Ox
97.9 F 84 16 155/85 99
09/17/25 15:00 09/17/25 15:00 09/17/25 15:00 09/17/25 15:00 09/17/25 15:00
<Vanessa Rivas PA-C - Last Filed: 09/17/25 04:25>
MDM/Problems Addressed
Differential Diagnosis Includes:
gout, osteoarthritis, septic arthritis, cellulitis
MDM/Problems Addressed:
80-year-old female with past medical history of gout, A-fib on Eliquis, hypertension, hyperlipidemia, GERD, diabetes, presents to ER today with concerns of left knee pain and swelling. She was made a few days ago for the same thing and had
arthrocentesis performed which was negative for bacterial growth but did show amount of sodium urate crystals. She was started on IV antibiotics for possible superimposed septic arthritis she is doing colchicine feeling better but then this evening
she developed severe pain again left knee swelling chills nausea despite being on the colchicine. She is already on doxycycline Levaquin orally. No fever. On exam, there is no warmth, redness, minimal range of motion due to degree of pain and
swelling. Her white blood cell count is 15,000. We will keep her overnight for pain control. Case reviewed with ED attending. Will start IV steroids and continue colchicine.
Chronic conditions affecting care:
afib, htn, hlp, GERD, diabetes
<Vanessa Rivas PA-C - Last Filed: 09/17/25 04:25>
*Pulse Oximetry
SaO2: 98
Oxygen Mode of Delivery: Room air
Patient hypoxic: no
*Critical Care Note
Total Time (30-74mins, 75-104mins- exclusive of procedures): Not Applicable
Data Reviewed
Review of Other/Old Records Reveals: Records (Reviewed discharge summary from 09/12/2025)
Source: patient and records
<Vanessa Rivas PA-C - Last Filed: 09/17/25 04:25>
Patient Management
Discussion with other providers: Drop Forger (orthopedics who recommended immobilization and rheum consult)
Escalation/DeEscalation of care consider admission/obs:
Admit indicated
ED Attending Note
<Vanessa Rivas PA-C - Last Filed: 09/17/25 04:25>
-
Portions of this chart may have been created with voice recognition software.� Occasional wrong word or��sound alike� substitutions may have occurred due to the inherent limitations of voice recognition software.
<Robbie Allred MD - Last Filed: 09/17/25 19:53>
ED Attending Note
Patient seen and examined by attending physician: Yes
ED Attending Note:
Patient presents to ED secondary to worsening left knee pain with swelling today. Patient was admitted to the hospital last week and was treated for gouty arthritis, requiring arthrocentesis during hospitalization. Patient is currently taking
Levaquin as well as doxycycline. Patient states that she started physical therapy couple of days ago and today, may have walked more than usual. Patient is utilizing walker upon discharge due to pain. Denies fever, but reports chills sensation.
Denies vomiting. Denies any new trauma. Denies redness or warmth over the affected leg.
Physical Exam
General: mild painful distress, not acutely ill. afebrile
Head: nc/at. eomi
Neck: supple. normal range of motion
Neuro: alert and oriented x 3. no focal neurological deficits
Skin: no rash
Psychiatric: well kept. interactive and cooperative
Extremities: left knee: swelling with diffuse tenderness, without erythema/warmth. ROM, limited due to pain. Evolving ecchymosis noted over lateral aspect of knee, without open drainage
History and exam consistent with significant left knee pain, due to swelling, which may have been contributed by recent initiation of physical therapy along with increased weightbearing. Exam findings are inconsistent with septic arthritis. As
such, patient will be admitted for symptomatic treatment, i.e. IV steroids, colchicine. Patient may benefit from physical therapy evaluation, and/or short term rehab/SNF, if symptoms persist.
Discharge Plan
Departure
Patient Disposition: Admit
Date of Disposition: 09/17/25
Time of Disposition: 00:54
Admit to: Med/Surg
Presentation/result/management discussed w/ accepting MD/DO: Hospitalist
Condition: Fair
Discharge Problem:
Left knee pain, Joint effusion
Interventions
Interventions:
*Risk Screen - Suicide Last Done: 09/17/25 10:48
*General Assessment Last Done: 09/16/25 20:46
*Neglect/Abuse Screening Last Done: 09/16/25 20:46
*ED- Fall Risk Assessment Last Done: 09/17/25 10:10
*ED COVID-19 Vaccine History Last Done: 09/17/25 10:48
*ED Influenza Vaccine History Last Done: 09/16/25 20:46
*Nursing Disposition Last Done: 09/17/25 10:10
ED-Skin Assessment Last Done: 09/16/25 23:31
ED-Peripheral Vascular Assessment Last Done: 09/16/25 23:33
ED-Musculoskeletal Assessment Last Done: 09/16/25 23:31
Discharge Date and Time
Discharge Date/Time: 09/17/25 10:05
[2025-09-16 23:31] VITALS: BMI 29.7
[2025-09-17] VITALS (17 sets, daily range): BP systolic 146–225; BP diastolic 71–102; BMI 29.8
[2025-09-17] MEDS: TYLENOL 500 MG PO (00:34)
[2025-09-17] MEDS: SOLU-MEDROL PF 20 MG IV ×3 (00:46→20:44)
--- NOTE | 2025-09-17 02:07 | HPS.HSE ---
Addendum entered and electronically signed by Dell Omalley MD 09/17/25 07:36:
Reported chest pressure at 7:27 am. She stated it lasted less than 15 minutes and resolved. No associated sob, diaphoresis or nausea. She also complained of back pain as she moved around. Obtained ECG which is NSR and unchanged from prior.
Suspect this is MSK. Checking troponin. Changed to telemetry. Patient on eliquis.
Original Note:
Family Physician
-
Family Physician: Saravanan Carl Jr.
Chief Complaint
-
Lower extremity pain
History of Present Illness
This is a 80-year-old female with past medical history significant for atrial fibrillation on Eliquis, hypertension, hyperlipidemia, GERD, gout, diabetes who presents to the emergency department with ongoing left knee pain and swelling days to be
admitted for intractable pain.
She was admitted few days ago for similar and had arthrocentesis which was negative for growth but did showed sodium urate crystals consistent with gouty arthritis. She did start antibiotics for possible superimposed septic arthritis. She also did
initially had some bloody synovial fluid sampling. Eliquis was held for possible hemarthrosis. However Eliquis was restarted as patient improved. He improved dramatically on colchicine. She was discharged home on colchicine and a 10-day course
of doxycycline and Levaquin. Was feeling better but then later this evening developed severe left knee swelling and pain. She had chills and nausea. She is already taking cyclin and Levaquin orally. She had no fever here.
In the emergency department she was hypertensive to 180/80 with a pulse of 80 and she is satting 100% on room air.-
White count of 13.9 hemoglobin and platelets were normal. Electrolyte BUN/creatinine were unremarkable. Knee x-ray shows no acute fractures or dislocation.
Medical History
Past Medical History
Past Medical History: Reports Other
Additional Past Medical History:
Paroxysmal Atrial Fibrillation
Sick Sinus Syndrome s/p Pacemaker
Aortic Stenosis
ASCVD
Essential Hypertension
Hyperlipidemia
Diabetes Mellitus, Type II
Pulmonary Hypertension
GERD
Past Surgical History: Reports Other
Additional Past Surgical History:
Right Reverse Total Shoulder Arthroplasty
Bilateral Bunionectomy
Carpal Tunnel Release
Sinus Surgery
Tonsillectomy
Cataract
Social History
Tobacco: Non-smoker
Alcohol: Occasional
Drug: None
Living: Alone
Family History
Family History: Not pertinent
Allergies / Home Medications
Allergies reflects when Allergies were last updated in [employer].
Home Medications with original date entered in [employer]
Allergy/Medication List:
Allergies
Allergy/AdvReac Type Severity Reaction Status Date / Time
cephalexin monohydrate (From Allergy Hives; Verified 09/10/25 08:15
Keflex) tolerated
Cefazolin
codeine Allergy Hives Verified 09/09/25 08:55
Iodinated Contrast Media Allergy Hives Verified 09/09/25 08:55
latex Allergy Itching Verified 09/09/25 08:55
Home Medications
atorvastatin 20 mg tablet 20 mg PO HS High Cholesterol 06/28/24
diltiazem HCl 120 mg capsule,extended release 24 hr 120 mg PO DAILY Arrhythmia 06/28/24
diphenhydramine 25 mg-acetaminophen 500 mg tablet (Tylenol PM Extra Strength) 1 tab PO HS Sleep 06/28/24
metoprolol succinate 25 mg tablet,extended release 24 hr 25 mg PO HS Blood Pressure 06/28/24
metformin 500 mg tablet,extended release 24hr (osmotic) 500 mg PO BID Diabetes 12/16/24
Held on 09/12/25. Instructions: Follow-up with your primary care physician regarding reported GI symptoms associated with your diabetic medications and to make adjustments as needed
apixaban 5 mg tablet (Eliquis) 5 mg PO BID Blood Clot Prevention/Tx 09/09/25
losartan 50 mg tablet 50 mg PO DAILY Blood Pressure 09/09/25
pantoprazole 40 mg tablet,delayed release 40 mg PO HS Gastrointestinal Issue 09/09/25
semaglutide 0.25 mg or 0.5 mg (2 mg/3 mL) subcutaneous pen injector (Ozempic) 0.25 mg SC TU Diabetes 09/09/25
Held on 09/12/25. Instructions: Follow-up with your primary care physician regarding reported GI symptoms associated with your diabetic medications and to make adjustments as needed
colchicine 0.6 mg tablet 0.6 mg PO DAILY #30 tabs 09/12/25
doxycycline hyclate 100 mg capsule 100 mg PO BID 7 days #14 caps 09/12/25
levofloxacin 750 mg tablet 750 mg PO DAILY 7 days #7 tabs 09/12/25
rolling walker #1 ea 09/12/25
Review of Systems
-
A 12 point ROS was completed and negative except as noted: Yes
Constitutional: Denies Fever
Respiratory: Denies Cough or Trouble Breathing
Cardiac: Denies See HPI or Palpitations
Musculoskeletal: Reports See HPI
Physical Exam
Vital Signs
Vital Signs
Temp Pulse Resp BP Pulse Ox
98.2 F 80 14 188/88 100
09/16/25 20:46 09/16/25 20:46 09/16/25 20:46 09/17/25 00:03 09/17/25 00:04
Physical Exam
General: Comfortable and Conversant
HEENT: Anicteric and Moist mucous membranes
Respiratory: Clear and Non Labored Respirations
Cardiac: S1/S2, Regular Rhythm and Murmur
GI: Soft and Non Tender
Rectal: Deferred by Provider
Musculoskeletal: No Clubbing, No Cyanosis and Other (Left knee swelling and tenderness)
Neuro: AO x 3 and Nonfocal/grossly intact
Laboratory Results
-
09/16/25 20:56
09/16/25 20:56
Laboratory Results
Total Bilirubin 0.9 mg/dl (0.2-1.3) 09/16/25 20:56
AST 22 U/L (14-36) 09/16/25 20:56
ALT 23 U/L (0-35) 09/16/25 20:56
Alkaline Phosphatase 125 U/L (38-126) 09/16/25 20:56
Data Reviewed
-
Diagnostic Radiology: Report Reviewed by me
Lab Data: Labs Reviewed by me
Old Records: Reviewed
Impression/Plan
-
IMPRESSION:
80-year-old with extensive past medical history including gout, atrial fibrillation on anticoagulation hypertension hyperlipidemia, GERD who was recently admitted and found to have left knee gouty inflammatory arthritis started on colchicine and
antibiotics with initial improvement returns to the emergency department with worsening left knee pain on current regimen. She has a pending outpatient rheumatology evaluation. Ortho consulted in ED and did not feel that the patient requires any
orthopedic intervention at this time and recommended rheumatology evaluation.
PLAN:
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
-admit to Medr
-IV Solu-Medrol 20 mg twice daily for now
-Pain control
-Elevate limb
-Continue doxycycline and Levaquin to complete 10-day course
-No growth on cultures from recent arthrocentesis
-Pain control Tylenol and oxycodone as needed
-Consult rheumatology
Essential Hypertension - BP uncontrolled
-Patient states she did not take her morning medications prior to arrival - Give doses of diltiazem and losartan now - Monitor blood pressure closely
-Continue diltiazem, losartan, and metoprolol
Paroxysmal Atrial Fibrillation, Sick Sinus Syndrome s/p Pacemaker
-Continue diltiazem and metoprolol
- Continue Eliquis Eliquis
Aortic Stenosis
-Monitor Daily Weights
ASCVD
-Patient is not on aspirin as outpatient
Hyperlipidemia
-Continue atorvastatin
Diabetes Mellitus, Type II
-Patient maintained on Ozempic as outpatient
-Hold metformin
- Sliding scale coverage
GERD
-Continue Protonix
Ambulatory Dysfunction
-Consult PT/OT
DVT prophylaxis�on Eliquis
Code Status: Full Code
[2025-09-17] MEDS: APRESOLINE 5 MG IV ×2 (02:55→06:29)
[2025-09-17] MEDS: FLUSH (NSS) 1 FLUSH IV (02:56)
[2025-09-17 07:43] LABS: Glucose - Point of Care 232 mg/dl (70-99)
[2025-09-17 08:16] LABS: Troponin I < 0.012 ng/ml
[2025-09-17] MEDS: NOVOLOG FLEXPEN-LOW RESISTANCE 300 UNITS SC (08:21)
[2025-09-17] MEDS: COZAAR 50 MG PO (08:24)
[2025-09-17] MEDS: VIBRAMYCIN 100 MG PO ×2 (08:24→20:40)
[2025-09-17] MEDS: ELIQUIS 5 MG PO ×2 (08:24→20:41)
[2025-09-17] MEDS: LEVAQUIN 750 MG PO (08:24)
[2025-09-17] MEDS: TYLENOL 650 MG PO ×4 (08:24→20:41)
[2025-09-17] MEDS: CARDIZEM CD 120 MG PO (08:27)
--- NOTE | 2025-09-17 09:23 | CM ---
Chart reviewed and spoke with patient at ED bedside
She was just here and discharged to her dtr's on 09/12/25
She lives alone in [place]
She was staying with her dtr Maida
[address] Gilda Kinsey PA
DME RW
PCP Dr. Saravanan Schwartz
[facility] [place]
Was active with [facility]
Vera at [facility] made aware of her admission
no hx of SNF
DCP is to go home( dtr's) with [facility]
Cm will continue to follow up with dcp needs
[2025-09-17] MEDS: PEPCID 20 MG IV (09:38)
[2025-09-17 12:40] LABS: Glucose - Point of Care 251 mg/dl (70-99)
[2025-09-17] MEDS: NOVOLOG FLEXPEN-LOW RESISTANCE 3 UNITS SC (12:40)
--- NOTE | 2025-09-17 13:00 | W.PN.HOSP.TC ---
Today's Communication/Plan
-
see plan
Assessment / Plan
Assessment / Plan
Admission summary: 80-year-old with extensive past medical history including gout, atrial fibrillation on anticoagulation hypertension hyperlipidemia, GERD who was recently admitted and found to have left knee gouty inflammatory arthritis started on
colchicine and antibiotics with initial improvement returns to the emergency department with worsening left knee pain on current regimen. She had a pending outpatient rheumatology evaluation. Ortho consulted in ED and did not feel that the patient
requires any orthopedic intervention at this time and recommended rheumatology evaluation.
Gen: NAD, AAOx3.
Eyes: EOMI, PERRLA, no scleral icterus.
Neck: supple.
CV: RRR, +S1/S2, 3/6 systolic murmur
Resp: CTAB, no rales, wheezes, or rhonchi.
Abd: +BS, soft, NT, ND
Skin: No rashes. 1+ L leg edema. L knee with OLEG wrap.
Neuro: CN 2-12 intact, non-focal.
Psych: Normal mood and affect.
Left Knee inflammatory arthritis secondary to gout:
-this AM pt reports improvement in pain with IV solumedrol, continue
-Elevate limb
-Pain control Tylenol and oxycodone as needed
-Continue doxycycline and Levaquin to complete 10-day course
-No growth on cultures from recent arthrocentesis
-case discussed with rheumatology over the phone (Dr. Dyana Guadalupe) over the phone. Cont Solumedrol, no need for colchicine/allopurinol at this time. Dr. Guadalupe is attempting arrange for quick outpt follow up, likely next week, at their [place] office.
-PT/OT for ambulatory dysfunction due to L knee gouty arthritis
Other problems:
Essential HTN: cont diltiazem/losartan/metoprolol
PAF, SSS s/p Pacemaker: cont Cardizem/BB/Eliquis
h/o
CAD
HLD: Cont statin
DM2: SSI/accuchecks, maintained on Ozempic as outpatient, home metformin on hold
GERD: cont PPI
FULL/Eliquis
Anticipated Discharge: 24 - 48 hours
Subjective/Interval History
-
Date of Service: September 17, 2025
Patient reports left knee pain is improving on steroids
Objective Data
-
Vital Signs:
Vital Signs
Temp Pulse Resp BP Pulse Ox
98.3 F 95 16 167/76 99
09/17/25 11:37 09/17/25 11:37 09/17/25 11:37 09/17/25 11:37 09/17/25 11:37
--- NOTE | 2025-09-17 14:51 | PTCARENOTE ---
~11:00 Received pt from ED into room 404-1. Pt ambulatory to bed with assist x1 w/ single point cane. L knee with steve bandage wrap, +1 LLE swelling. LLE elevated on pillow. Pt c/o 5/10 pain to L knee. Tylenol administered per order, see MAR. Pt
oriented to room, resting comfortably in bed. No further complaints at this time, call gamez within reach.
--- NOTE | 2025-09-17 16:47 | PTOTSP ---
ST Acute Care Evaluation
Pt currently presents with clinical signs of a functional oropharyngeal swallow. Pt exhibits and reports symptoms of acute on chronic esophageal dysfunction as evident by occasional eructation s/p ingestion of liquids, difficulty swallowing whole
pills as they become 'stuck' and occasionally need to be regurgitated if not swallowed (remediated with use of puree consistency for swallow facilitation), and recent increased in GERD symptoms.
Recommendations:
- Continue with regular solids, thin liquids, meds whole in puree.
- General aspiration precautions.
- Reflux precautions: HOB upright for 60-90 minutes after meals; chew food thoroughly; alternate solids/liquids; take reflux medications as prescribed.
- Consider GI consultation as an OP.
- No skilled GRAIN OPERATIONS MANAGER services deemed warranted at this time. GRAIN OPERATIONS MANAGER team to sign off. Reconsult if needed.
[2025-09-17 17:41] LABS: Glucose - Point of Care 195 mg/dl (70-99)
[2025-09-17] MEDS: NOVOLOG FLEXPEN-LOW RESISTANCE 1 UNITS SC (17:55)
[2025-09-17] MEDS: GLUCOPHAGE XR EXTENDED RELEASE 500 MG PO (20:41)
[2025-09-17] MEDS: PROTONIX 40 MG PO (20:41)
[2025-09-17] MEDS: LIPITOR 20 MG PO (20:41)
[2025-09-17 21:34] LABS: Glucose - Point of Care 223 mg/dl (70-99)
[2025-09-17] MEDS: MELATONIN 5 MG PO (22:17)
[2025-09-17] MEDS: TOPROL XL 25 MG PO (22:17)
[2025-09-18] MEDS: TYLENOL PO (00:09)
[2025-09-18] MEDS: TYLENOL 650 MG PO ×2 (03:19→09:07)
[2025-09-18] MEDS: APRESOLINE 5 MG IV (03:19)
[2025-09-18 03:38] VITALS: BP 210/83
[2025-09-18 05:18] VITALS: BP 157/79
[2025-09-18 07:00] VITALS: BP 158/73
[2025-09-18 07:04] LABS: Glucose - Point of Care 199 mg/dl (70-99)
--- NOTE | 2025-09-18 07:58 | W.PN.HOSP.TC ---
Today's Communication/Plan
-
d/c
Assessment / Plan
Assessment / Plan
Admission summary: 80-year-old with extensive past medical history including gout, atrial fibrillation on anticoagulation hypertension hyperlipidemia, GERD who was recently admitted and found to have left knee gouty inflammatory arthritis started on
colchicine and antibiotics with initial improvement returns to the emergency department with worsening left knee pain on current regimen. She had a pending outpatient rheumatology evaluation. Ortho consulted in ED and did not feel that the patient
requires any orthopedic intervention at this time and recommended rheumatology evaluation.
Gen: NAD, AAOx3.
Eyes: EOMI, PERRLA, no scleral icterus.
Neck: supple.
CV: Remains RRR, +S1/S2, 3/6 systolic murmur
Resp: Remains CTAB, no rales, wheezes, or rhonchi.
Abd: +BS, soft, NT, ND
Skin: No rashes. 1+ L leg edema. L knee with OLEG wrap.
Neuro: CN 2-12 intact, non-focal.
Psych: Normal mood and affect.
Left Knee inflammatory arthritis secondary to gout:
-this AM pt reports improvement in pain with IV solumedrol, continue
-Elevate limb
-Pain control Tylenol and oxycodone as needed
-Continue doxycycline and Levaquin to complete 10-day course
-No growth on cultures from recent arthrocentesis
-case discussed with rheumatology (Dr. Dyana Guadalupe) over the phone. No need for colchicine/allopurinol at this time. d/c on Prednisone taper.
-PT/OT for ambulatory dysfunction due to L knee gouty arthritis
Other problems:
Essential HTN: cont diltiazem/losartan/metoprolol
PAF, SSS s/p Pacemaker: cont Cardizem/BB/Eliquis
h/o
CAD
HLD: Cont statin
DM2: SSI/accuchecks, maintained on Ozempic as outpatient, cont metformin
GERD: cont PPI
FULL/Eliquis
Medically cleared for discharge. Family updated.
Total time spent on d/c = 32 min. This included today's physical exam, progress note, review of laboratory and diagnostic data, preparation of discharge documents and prescriptions, and discussions about the pt's hospital course and discharge plan
with the patient and other bacteriologist medical involved in the patient's care.
Anticipated Discharge: Today
Subjective/Interval History
-
Date of Service: September 18, 2025
Left knee pain is improving. No new complaints.
Objective Data
-
Labs:
Laboratory Results
09/18/25
07:40
WBC Pending
Hgb Pending
Hct Pending
Plt Count Pending
Sodium Pending
Potassium Pending
Chloride Pending
Carbon Dioxide Pending
BUN Pending
Creatinine Pending
Glucose Pending
Calcium Pending
Vital Signs:
Vital Signs
Temp Pulse Resp BP Pulse Ox
98.4 F 84 18 157/79 99
09/18/25 03:38 09/18/25 03:38 09/18/25 03:38 09/18/25 05:18 09/18/25 03:38
[2025-09-18 08:29] LABS: Hematocrit 30.4 % (37.0-47.0); Hemoglobin 10.0 g/dL (12.0-16.0); Mean Corp Hgb Conc. 32.9 g/dL (33.0-37.0); Mean Corpuscular Volume 81.3 fL (81.0-99.0); Platelet Count 443 10^3/uL (130-400); Red Cell Dist. Width 14.1 % (11.5-14.5)
--- NOTE | 2025-09-18 08:48 | CM ---
Patient will d/c today
Spoke w/ patient, stated she will d/c to her daughter's home in [place]
Patient agreeable to referral to [facility], referral done in [facility]
IMM verbally reviewed
Daughter will transport home
[facility]

Plan: Home w/ daughter and [facility]
[2025-09-18 09:03] LABS: Blood Urea Nitrogen 15 mg/dl (7-17); Calcium 9.5 mg/dl (8.4-10.2); Carbon Dioxide 26 mmol/L (22-30); Chloride 99 mmol/L (98-107); Estimated Creatinine Clearance 61 ml/min; Glucose 171 mg/dl (70-99); Potassium 4.1 mmol/L (3.5-5.1); Sodium 130 mmol/L (135-145); eGFR > 60.00
[2025-09-18] MEDS: NOVOLOG FLEXPEN-LOW RESISTANCE 1 UNITS SC (09:05)
[2025-09-18] MEDS: CARDIZEM CD 120 MG PO (09:06)
[2025-09-18] MEDS: COZAAR 50 MG PO (09:07)
[2025-09-18] MEDS: ELIQUIS 5 MG PO (09:07)
[2025-09-18] MEDS: LEVAQUIN 750 MG PO (09:07)
[2025-09-18] MEDS: VIBRAMYCIN 100 MG PO (09:07)
[2025-09-18] MEDS: GLUCOPHAGE XR EXTENDED RELEASE 500 MG PO (09:07)
[2025-09-18] MEDS: DELTASONE 50 MG PO (09:07)
[2025-09-18] MEDS: SOLU-MEDROL PF IV (09:11)
--- NOTE | 2025-09-18 10:46 | PTCARENOTE ---
IV discontinued. Tele pack removed. Discharge instructions printed and reviewed with patient and son in law who both verbalized understanding. Pt transported off the floor via wheelchair with all belongings from the room.
--- NOTE | 2025-09-18 12:49 | W.DCSUMMARY ---
Discharge Summary
Discharge Data
Date of Admission: 09/17/25
Date of Discharge: 09/18/25
-
Pending Results: No
Hospital Course
Primary diagnoses:
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
Secondary diagnoses:
Essential hypertension
Paroxysmal atrial fibrillation
Sick sinus syndrome s/p Pacemaker
h/o aortic stenosis
Coronary artery disease
Hyperlipidemia
Type 2 diabetes mellitus
Gastroesophageal reflux disease
Consultants:
Rheumatology over the phone
Imaging:
L knee Xray: No acute fracture or dislocation. Mild joint space narrowing of the medial tibiofemoral compartment. Small tricompartmental marginal osteophytes. Large suprapatellar joint effusion. Soft tissue swelling about the knee, nonspecific. Soft
tissue phleboliths in the lateral thigh.
Hospital course: 80-year-old female who presented with a chief complaint of left lower extremity pain as outlined in the H&P done early in the morning on September 17, 2025. The patient had had a recent hospitalization for left knee gouty arthritis.
She had been started on antibiotics for possible superimposed septic arthritis. Patient had a left knee x-ray as above. She was placed on IV Solu-Medrol and her left knee pain improved significantly. Her doxycycline and Levaquin were continued
and she is to complete a 10-day course. Of note, there was no growth on cultures from recent arthrocentesis. While hospitalized the case was discussed rheumatology (Dr. Dyana Guadalupe) over the phone. She stated there was no need for
colchicine/allopurinol at this time and that the patient could be discharged on Prednisone taper. The patient was discharged in medically stable condition.
Discharge Plan
-
Patient Disposition: Home (Routine Discharge)
Discharge Diagnosis/Procedures: Left knee gouty arthritis
Condition: Good
Diet: Low Cholesterol, 2 Gram Sodium and Diabetic, Carb Controlled
Activity: As tolerated
Driving Restrictions: Not until seen by your Dr
Referrals:
Cimorelli,Saravanan C. Jr., DO [Family Provider, Internal Medicine] - in less than 1 week
Prescriptions:
New
melatonin 5 mg Tablet
5 mg PO HS Qty: 0 0RF
prednisone 10 mg tablet
10 mg PO DIRECTED Qty: 40 0RF
Rx Instructions:
Taper: 40mg daily x 4 days, 30mg daily x 4 days, 20mg daily x 4 days, 10mg daily x 4 days
(DME) blood-glucose meter [Accu-Chek Guide Glucose Meter] Misc
Qty: 1 0RF
Rx Instructions:
BID, Dx: diabetes mellitus type 2 without insulin use with complication of coronary artery disease
(DME) Accu-Chek Guide test strips Strip
Qty: 200 0RF
Rx Instructions:
BID, Dx: diabetes mellitus type 2 without insulin use with complication of coronary artery disease
(DME) lancets [Accu-Chek Softclix Lancets] Misc
Qty: 200 0RF
Rx Instructions:
BID
Continued
diltiazem HCl 120 mg Capsule,Extended Release 24hr
120 mg PO DAILY
diphenhydramine-acetaminophen [Tylenol PM Extra Strength] 25-500 mg Tablet
1 tab PO HS
atorvastatin 20 MG tablet
20 mg PO HS
metoprolol succinate 25 MG tablet extended release 24 hr
25 mg PO HS
metformin 500 mg Tablet Extended Release 24hr
500 mg PO BID
losartan 50 mg tablet
50 mg PO DAILY
pantoprazole 40 mg tablet,delayed release (DR/EC)
40 mg PO HS
Eliquis 5 mg tablet
5 mg PO BID
colchicine 0.6 mg Tablet
0.6 mg PO DAILY Qty: 30 0RF
doxycycline hyclate 100 mg capsule
100 mg PO BID 7 Days Qty: 14 0RF
Rx Instructions:
for 7 days starting 09/12/25
levofloxacin 750 mg tablet
750 mg PO DAILY 7 Days Qty: 7 0RF
Rx Instructions:
for 7 days starting 09/12/25
Ozempic 0.25 mg or 0.5 mg (2 mg/3 mL) Pen Injector
0.25 mg SC TU
Rx Instructions:
for 4 weeks
Discharge Orders:
Discharge Patient (As Directed); Ordered 09/18/25
Ordered By: Gary Montilla
Discharge Date and Time
Discharge Date/Time: 09/18/25 09:55
Print Language: FRENCH
== END 2025-09-18 09:55 | disposition home health service (06) | DRG 554 ==
LOC: 4 EAST ACU 02:28
PROVIDERS: ADMITTING PHYSICIAN Internal Medicine; ATTENDING PHYSICIAN Internal Medicine; EMERGENCY PHYSICIAN Emergency Medicine; FAMILY PHYSICIAN Family Medicine
DX: M10.9 Gout, unspecified (principal); M13.862 Other specified arthritis, left knee; I10 Essential (primary) hypertension; I48.0 Paroxysmal atrial fibrillation; Z95.0 Presence of cardiac pacemaker; I49.5 Sick sinus syndrome; I35.0 Nonrheumatic aortic (valve) stenosis; E78.00 Pure hypercholesterolemia, unspecified; I25.10 Atherosclerotic heart disease of native coronary artery without angina pectoris; E11.36 Type 2 diabetes mellitus with diabetic cataract; K21.9 Gastro-esophageal reflux disease without esophagitis; I27.20 Pulmonary hypertension, unspecified; Z79.01 Long term (current) use of anticoagulants; Z79.84 Long term (current) use of oral hypoglycemic drugs; Z96.611 Presence of right artificial shoulder joint
CPT/HCPCS: 73564; 80048; 80053; 82962; 84484; 85025; 85027; 92610; 93005; 96374; 99285